=== PATIENT | male | born 1955 | race Two or more races ===

== ENCOUNTER 2020-02-07 10:36 | Inpatient (IN) | payer OTHER ==
[~2020-02-07] VITALS: Ht 172.7 cm; Wt 61.4 kg
[2020-02-07 11:51] LABS: BASO % 1 % (0-3); EOS # 0.2 x10^3/uL (0.0-0.7); EOS % 4 % (0-3); HEMOGLOBIN 10.5 g/dL (13.0-17.5); LYMPH # 1.2 x10^3/uL (1.0-4.8); LYMPH % 26 % (24-48); MEAN CORPUSCULAR HEMOGLOBIN 29 pg (25-35); MEAN CORPUSCULAR HGB CONC 32 g/dL (31-37); MEAN CORPUSCULAR VOLUME 91 fL (79-100); MONO # 0.4 x10^3/uL (0.0-1.1); MONO % 8 % (0-9); NEUT # 2.7 x10^3uL (1.8-7.7); NEUT % 61 % (31-73); PLATELET COUNT 257 x10^3/uL (140-400); RED BLOOD COUNT 3.64 x10^6/uL (4.30-5.70); RED CELL DISTRIBUTION WIDTH 15.3 % (11.5-14.5); WHITE BLOOD COUNT 4.5 x10^3/uL (4.0-11.0)
[2020-02-07 12:02] LABS: CALCIUM 9.2 mg/dL (8.5-10.1); CREATININE 0.6 mg/dL (0.7-1.3); GFR 136.1; POTASSIUM 3.7 mmol/L (3.5-5.1)
[2020-02-07 12:05] LABS: ACETAMIN < 2.0 mcg/mL (10-30); ETHANOL < 10 mg/dL (0-10); SALIC < 2.8 mg/dL (2.8-20.0)
[2020-02-07 12:07] LABS: ALBUMIN 3.2 g/dL (3.4-5.0); ALBUMIN/GLOBULIN RATIO 0.8 (1.0-1.7); MAGNESIUM 1.8 mg/dL (1.8-2.4); TOTAL BILIRUBIN 0.5 mg/dL (0.2-1.0); TOTAL PROTEIN 7.3 g/dL (6.4-8.2)
[2020-02-07 12:28] LABS: AMPHETAMINE/METHAMPHETAMINE NEG (NEG); BARBITURATES NEG (NEG); BENZODIAZEPINES NEG (NEG); CANNABINOIDS NEG (NEG); COCAINE NEG (NEG); METHADONE NEG (NEG); OPIATES NEG (NEG); PHENCYCLIDINE NEG (NEG)
--- NOTE | 2020-02-07 12:39 | PHYS DOC ---
General Adult EDM: Chief Complaint: MEDICAL CLEARANCE HPI: HPI: Patient is a 64 years old male with history of alcohol abuse causing wernike encephalopathy, has neurocognitive problem required admission to Geripsych unit at this hospital for treatment but need medical clearance from the ER SO HE WAS SENT HERE. He was tested negative for COVID-19 . Review of Systems: Review of Systems: NOT ABLE TO OBTAIN DUE TO MENTAL CONDITION. Heart Score: Risk Factors: Risk Factors: DM, Current or recent (<one month) smoker, HTN, HLP, family history of CAD, obesity. Risk Scores: Score 0 - 3: 2.5% MACE over next 6 weeks - Discharge Home Score 4 - 6: 20.3% MACE over next 6 weeks - Admit for Clinical Observation Score 7 - 10: 72.7% MACE over next 6 weeks - Early Invasive Strategies Physical Exam: PE: Constitutional: Well developed, well nourished, no acute distress, non-toxic appearance. [] HENT: HAD A SPECIAL HELMET ON HEAD. Eyes: PERRLA, EOMI, conjunctiva normal, no discharge. [] Neck: Normal range of motion, no tenderness, supple, no stridor. [] Cardiovascular:Heart rate regular rhythm, no murmur [] Lungs & Thorax: Bilateral breath sounds clear to auscultation [] Abdomen: Bowel sounds normal, soft, no tenderness, no masses, no pulsatile masses. [] Skin: Warm, dry, no erythema, no rash. [] Back: No tenderness, no CVA tenderness. [] Extremities: No tenderness, no cyanosis, no clubbing, ROM intact, no edema. [] Neurologic: ALERT BUT CONFUSED, MOVE ALL EXTREMITIES. Psychologic: FLAT AFFECT. Current Patient Data: Labs: Laboratory Tests Test 02/07/20 11:30 02/07/20 11:46 White Blood Count 4.5 x10^3/uL (4.0-11.0) Red Blood Count 3.64 x10^6/uL (4.30-5.70) L Hemoglobin 10.5 g/dL (13.0-17.5) L Hematocrit 33.0 % (39.0-53.0) L Mean Corpuscular Volume 91 fL (79-100) Mean Corpuscular Hemoglobin 29 pg (25-35) Mean Corpuscular Hemoglobin Concent 32 g/dL (31-37) Red Cell Distribution Width 15.3 % (11.5-14.5) H Platelet Count 257 x10^3/uL (140-400) Neutrophils (%) (Auto) 61 % (31-73) Lymphocytes (%) (Auto) 26 % (24-48) Monocytes (%) (Auto) 8 % (0-9) Eosinophils (%) (Auto) 4 % (0-3) H Basophils (%) (Auto) 1 % (0-3) Neutrophils # (Auto) 2.7 x10^3uL (1.8-7.7) Lymphocytes # (Auto) 1.2 x10^3/uL (1.0-4.8) Monocytes # (Auto) 0.4 x10^3/uL (0.0-1.1) Eosinophils # (Auto) 0.2 x10^3/uL (0.0-0.7) Basophils # (Auto) 0.0 x10^3/uL (0.0-0.2) Sodium Level 140 mmol/L (136-145) Potassium Level 3.7 mmol/L (3.5-5.1) Chloride Level 105 mmol/L (98-107) Carbon Dioxide Level 26 mmol/L (21-32) Anion Gap 9 (6-14) Blood Urea Nitrogen 18 mg/dL (8-26) Creatinine 0.6 mg/dL (0.7-1.3) L Estimated GFR (Cockcroft-Gault) 136.1 BUN/Creatinine Ratio 30 (6-20) H Glucose Level 100 mg/dL (70-99) H Calcium Level 9.2 mg/dL (8.5-10.1) Magnesium Level 1.8 mg/dL (1.8-2.4) Total Bilirubin 0.5 mg/dL (0.2-1.0) Aspartate Amino Transferase (AST) 18 U/L (15-37) Alanine Aminotransferase (ALT) 13 U/L (16-63) L Alkaline Phosphatase 94 U/L (46-116) Total Protein 7.3 g/dL (6.4-8.2) Albumin 3.2 g/dL (3.4-5.0) L Albumin/Globulin Ratio 0.8 (1.0-1.7) L Salicylates Level < 2.8 mg/dL (2.8-20.0) L Salicylate Last Dose Date Unknown Salicylate Last Dose Time Unknown Acetaminophen Level < 2.0 mcg/mL (10-30) L Acetaminophen Last Dose Date Unknown Acetaminophen Last Dose Time Unknown Ethyl Alcohol Level < 10 mg/dL (0-10) Urine Opiates Screen Neg (NEG) Urine Methadone Screen Neg (NEG) Urine Barbiturates Neg (NEG) Urine Phencyclidine Screen Neg (NEG) Urine Amphetamine/Methamphetamine Neg (NEG) Urine Benzodiazepines Screen Neg (NEG) Urine Cocaine Screen Neg (NEG) Urine Cannabinoids Screen Neg (NEG) Urine Ethyl Alcohol Neg (NEG) EKG: EKG: [] Radiology/Procedures: Radiology/Procedures: [] Course & Med Decision Making: Course & Med Decision Making Pertinent Labs and Imaging studies reviewed. (See chart for details) Patient is a 64 years old male who was sent to the ER for medical clearance prior to being admitted to the Geripsych unit here at [facility]. He was medical cleared. Shaniceon Disclaimer: Dragjony Disclaimer: This electronic medical record was generated, in whole or in part, using a voice recognition dictation system. Departure Departure: Impression: Primary Impression: Wernicke encephalopathy syndrome Additional Impressions: Alcohol abuse Major neurocognitive disorder Disposition: ADMITTED INPATIENT Admitting Physician: Other (dr. shields) Condition: STABLE Referrals: PCP,NO (PCP) THANH CRAIG DO February 07, 2020 12:39
[2020-02-07 12:41] LABS: BILIRUBIN,URINE NEG (NEG); CLARITY,URINE CLEAR; COLOR,URINE YELLOW; GLUCOSE,URINE NEG (NEG)
[2020-02-07 12:42] LABS: BACTERIA,URINE FEW /HPF (0-FEW); NITRITE,URINE NEG (NEG); RBC,URINE RARE /HPF (0-2); SQUAMOUS EPITHELIAL CELL,UR FEW /LPF; UROBILINOGEN,URINE 0.2 mg/dL (0.2 mg/dL)
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
[2020-02-07 13:37] VITALS: BP 99/62
[2020-02-07] MEDS ORDERED: ATOR40TA59 PO (14:12)
[2020-02-07] MEDS ORDERED: BISA10SU4 RC (14:12)
[2020-02-07] MEDS ORDERED: ASPI-630 PO (14:12)
[2020-02-07] MEDS ORDERED: LORA-254 PO ×3 (14:12→14:25)
[2020-02-07] MEDS ORDERED: LORazepam 1 MG TABLET PO PRN (14:15)
[2020-02-07] MEDS ORDERED: cholecalciferol PO (14:17)
[2020-02-07] MEDS ORDERED: LACT10SO26 PO (14:25)
[2020-02-07] MEDS ORDERED: DOCU-109 PO (14:25)
[2020-02-07] MEDS ORDERED: LACO200T PO (14:25)
[2020-02-07] MEDS ORDERED: MAGN400O7 PO (14:25)
[2020-02-07] MEDS ORDERED: MAGN400T5 PO (14:25)
[2020-02-07] MEDS ORDERED: MELA5TAB20 PO (14:25)
[2020-02-07] MEDS ORDERED: HALO10TA PO (14:25)
[2020-02-07] MEDS ORDERED: THIA100T57 PO (14:25)
[2020-02-07] MEDS ORDERED: SENN1TAB99 PO (14:25)
[2020-02-07] MEDS ORDERED: LEVE500T21 PO (14:25)
[2020-02-07] MEDS ORDERED: ACET325T9 PO (14:25)
[2020-02-07] MEDS ORDERED: PANT40TA5 PO (14:25)
[2020-02-07] MEDS ORDERED: CLOP75TA PO (14:25)
[2020-02-07] MEDS ORDERED: ACETAMINOPHEN 325 MG TABLET PO PRN (14:30)
[2020-02-07] MEDS ORDERED: METHYL SALICYLATE/MENTHOL TOPICAL OINTMENT 57GM TUBE. TP PRN (14:30)
[2020-02-07] MEDS ORDERED: MAGNESIUM HYDROXIDE 2,400 MG/30 ML ORAL.SUSP. PO PRN (14:30)
[2020-02-07] MEDS ORDERED: BISACODYL 10 MG SUPP.RECT RC PRN (14:30)
[2020-02-07] MEDS ORDERED: MAG HYDROX/AL HYDROX/SIMETH 30 ML ORAL.SUSP PO PRN (14:30)
[2020-02-07] MEDS ORDERED: NICOTINE 21MG PATCH. TD SCH (15:00)
[2020-02-07] MEDS: HALOPERIDOL 5 MG TABLET PO SCH ×2 (15:00→21:14)
--- NOTE | 2020-02-07 15:03 | NUR ---
Patient becoming more restless, grabbing at things that aren't there. Getting out of bed. Pt moved to floor as it was communicated that patient likes to crawl on floor. Mats placed on floor to provide protection. Pt has helmet on. Pt still restless and becoming agitated. Trying to hit staff. Redirection attempted. Pt given 1mg of Ativan. Pt now sitting up in chair. RN fed patient chocolate pudding. Pt is disorganized, unable to feed self at this time. WCTM.
--- NOTE | 2020-02-07 16:02 | NUR ---
Patient has been provided with Practical Counseling for tobacco cessation. It included a face to face interaction and the following was discussed: Recognizing danger situations, Developing coping skills,Basic cessation information. Will follow for discharge needs and discharge planning. Discussed with patient about smoking down in the ER before he was admitted
[2020-02-07] MEDS: NICOTINE 7MG PATCH. TD SCH (16:15)
--- NOTE | 2020-02-07 17:31 | EKG ---
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
[2020-02-07] MEDS: LORazepam 1 MG TABLET PO SCH (21:00)
[2020-02-07] MEDS: levETIRAcetam 500 MG TABLET PO SCH (21:13)
[2020-02-07] MEDS: LACTULOSE 20 GM/30 ML SOLUTION. PO SCH (21:13)
[2020-02-07] MEDS: DOCUSATE SODIUM 100 MG CAPSULE PO SCH (21:13)
[2020-02-07] MEDS: ATORVASTATIN CALCIUM 20 MG TABLET PO SCH (21:13)
[2020-02-07] MEDS: SENNOSIDES/DOCUSATE 8.6/50MG TABLET. PO SCH (21:13)
[2020-02-07] MEDS: LACOSAMIDE 50 MG TABLET PO SCH (21:14)
[2020-02-07] MEDS: MELATONIN 3 MG TABLET PO PRN (22:07)
--- NOTE | 2020-02-07 22:10 | NUR ---
Nursing Note Dr alyson sales, pt is combative, will not follow commands, agitated angry hitting pinching kicking at staff, takes 4 staff members to keep him from harming himself. Orders for trazodone 100mg repeat in 30 and hydroxizine prn.
[2020-02-07] MEDS: traZODone 100 MG TABLET. PO SCH (22:15)
--- NOTE | 2020-02-07 22:20 | PDOC ---
Exam Note: Jay Note: Please also refer to the separate dictated note~for this date of service dictated separately. Discussed the patient with Nursing staff reviewed the chart.~Reviewed interim history and current functioning. Reviewed vital signs,~Labs/ Radiology~and current medications noted below. Continue current treatment with the changes noted in the dictated addendum note Assessment: Vital Signs/I&O: Vital Signs Date Time Temp Pulse Resp B/P (MAP) Pulse Ox O2 Delivery O2 Flow Rate FiO2 02/07/20 13:37 97.7 79 18 99/62 (74) 98 02/07/20 12:55 Room Air Labs: Laboratory Tests Test 02/07/20 11:30 02/07/20 11:46 White Blood Count 4.5 x10^3/uL (4.0-11.0) Red Blood Count 3.64 x10^6/uL (4.30-5.70) L Hemoglobin 10.5 g/dL (13.0-17.5) L Hematocrit 33.0 % (39.0-53.0) L Mean Corpuscular Volume 91 fL (79-100) Mean Corpuscular Hemoglobin 29 pg (25-35) Mean Corpuscular Hemoglobin Concent 32 g/dL (31-37) Red Cell Distribution Width 15.3 % (11.5-14.5) H Platelet Count 257 x10^3/uL (140-400) Neutrophils (%) (Auto) 61 % (31-73) Lymphocytes (%) (Auto) 26 % (24-48) Monocytes (%) (Auto) 8 % (0-9) Eosinophils (%) (Auto) 4 % (0-3) H Basophils (%) (Auto) 1 % (0-3) Neutrophils # (Auto) 2.7 x10^3uL (1.8-7.7) Lymphocytes # (Auto) 1.2 x10^3/uL (1.0-4.8) Monocytes # (Auto) 0.4 x10^3/uL (0.0-1.1) Eosinophils # (Auto) 0.2 x10^3/uL (0.0-0.7) Basophils # (Auto) 0.0 x10^3/uL (0.0-0.2) Sodium Level 140 mmol/L (136-145) Potassium Level 3.7 mmol/L (3.5-5.1) Chloride Level 105 mmol/L (98-107) Carbon Dioxide Level 26 mmol/L (21-32) Anion Gap 9 (6-14) Blood Urea Nitrogen 18 mg/dL (8-26) Creatinine 0.6 mg/dL (0.7-1.3) L Estimated GFR (Cockcroft-Gault) 136.1 BUN/Creatinine Ratio 30 (6-20) H Glucose Level 100 mg/dL (70-99) H Calcium Level 9.2 mg/dL (8.5-10.1) Magnesium Level 1.8 mg/dL (1.8-2.4) Total Bilirubin 0.5 mg/dL (0.2-1.0) Aspartate Amino Transferase (AST) 18 U/L (15-37) Alanine Aminotransferase (ALT) 13 U/L (16-63) L Alkaline Phosphatase 94 U/L (46-116) Total Protein 7.3 g/dL (6.4-8.2) Albumin 3.2 g/dL (3.4-5.0) L Albumin/Globulin Ratio 0.8 (1.0-1.7) L Salicylates Level < 2.8 mg/dL (2.8-20.0) L Salicylate Last Dose Date Unknown Salicylate Last Dose Time Unknown Acetaminophen Level < 2.0 mcg/mL (10-30) L Acetaminophen Last Dose Date Unknown Acetaminophen Last Dose Time Unknown Ethyl Alcohol Level < 10 mg/dL (0-10) Urine Collection Type Unknown Urine Color Yellow Urine Clarity Clear Urine pH 5.5 Urine Specific [place] 1.025 Urine Protein Neg (NEG-TRACE) Urine Glucose (UA) Neg mg/dL (NEG) Urine Ketones (Stick) Neg mg/dL (NEG) Urine Blood Neg (NEG) Urine Nitrite Neg (NEG) Urine Bilirubin Neg (NEG) Urine Urobilinogen Dipstick 0.2 mg/dL (0.2 mg/dL) Urine Leukocyte Esterase Neg (NEG) Urine RBC Rare /HPF (0-2) Urine WBC 1-4 /HPF (0-4) Urine Squamous Epithelial Cells Few /LPF Urine Bacteria Few /HPF (0-FEW) Urine Mucus Mod /LPF Urine Opiates Screen Neg (NEG) Urine Methadone Screen Neg (NEG) Urine Barbiturates Neg (NEG) Urine Phencyclidine Screen Neg (NEG) Urine Amphetamine/Methamphetamine Neg (NEG) Urine Benzodiazepines Screen Neg (NEG) Urine Cocaine Screen Neg (NEG) Urine Cannabinoids Screen Neg (NEG) Urine Ethyl Alcohol Neg (NEG) Current Medications: Meds: Current Medications Medications (Trade) Dose Ordered Sig/Yeny Route PRN Reason Start Time Stop Time Status Last Admin Dose Admin Lorazepam (Ativan) 1 mg PRN DAILY PRN PO ANXIETY / AGITATION 02/07/20 14:15 02/07/20 16:23 DC 02/07/20 14:40 Lorazepam (Ativan) 1 mg TID PO 02/07/20 21:00 02/07/20 21:00 Docusate Sodium (Colace) 100 mg BID PO 02/07/20 21:00 02/07/20 21:13 Senna/Docusate Sodium (Senna Plus) 1 tab BID PO 02/07/20 21:00 02/07/20 21:13 Atorvastatin Calcium (Lipitor) 40 mg QHS PO 02/07/20 21:00 02/07/20 21:13 Haloperidol (Haldol) 10 mg TID PO 02/07/20 15:00 02/07/20 21:14 Lacosamide (Vimpat) 200 mg BID PO 02/07/20 21:00 02/07/20 21:14 Lactulose (Lactulose) 20 gm BID PO 02/07/20 21:00 02/07/20 21:13 Levetiracetam (Keppra) 1,000 mg BID PO 02/07/20 21:00 02/07/20 21:13 Melatonin (Melatonin) 6 mg PRN QHS PRN PO INSOMNIA 02/07/20 15:15 02/07/20 22:07 Nicotine (Nicoderm Cq 7mg) 1 patch DAILY TD 02/07/20 16:15 02/07/20 16:15 Olanzapine (ZyPREXA ZYDIS) 2.5 mg PRN Q2HRS PRN PO ANXIETY / AGITATION 02/07/20 16:30 02/07/20 22:07 I have reviewed the current psychotropics carefully including drug interactions. Risk benefit ratio favors no change other than as noted in my dictated progress note. ELMA HURD MD February 07, 2020 22:20
[2020-02-07] MEDS: hydrOXYzine HCL 25 MG TABLET PO PRN (22:35)
[2020-02-07] MEDS: traZODone 100 MG TABLET. PO PRN (22:45)
--- NOTE | 2020-02-07 23:00 | NUR ---
Assumed 1:1 care with pt at shift change. Initially, pt was cooperative. A/O to name, , hospital and stated the date was December 2019. Pt then became highly restless the rest of the evening. Pt repeatedly attempting to stand but was very unsteady on his feet. Pt hallucinating and delusional. At one point, pt pointed to the corner of the room stating there was a red and blue statue there. Pt also became upset when he said that the president was coming to see him and "he can't see me like this." Pt unable to be redirected once he became agitated. Staff x4 assisted in keeping the pt safe until medication was effective. During this time, pt asked for vodka and asked for staff to unscrew the bottle. Pt continues to have very restless sleep, attempting to get up occasionally. Will continue to monitor with 1:1 for safety.
[2020-02-07 23:39] VITALS: BP 152/80
--- NOTE | 2020-02-08 01:06 | NUR ---
Nursing Note Pt required trazodone, anxiety med hydroxizine, and help from staff X 5 to get settled in bed. Pt later has difficulty clearing airway, low suction performed to oral airway. Sats maintained 98-99% during this time.
--- NOTE | 2020-02-08 05:56 | NUR ---
Nursing Note Pt awakens intermittently through the night, is combative requiring several staff to assist him at once. Multiple meds given through the shift, but patient is still resistant and combative, also has at times been sedated and required suction on and off through the night. Oxygen was maintained at 98% but pt had wet vocal quality with weak sounding cough and secretions in the upper airway. Oral suction provided prn.
[2020-02-08 06:35] VITALS: BP 96/60
[2020-02-08 07:10] LABS: THYROXINE 5.5 ug/dL (4.5-12.0)
--- NOTE | 2020-02-08 08:13 | NUR ---
Assumed 1:1 care of patient at shift change. Patient's bed is on the floor with mats placed next to the mattress; head elevated; helmet in place. Patient has been in bed asleep, occasionally restless and calling out at one point. He has intermittent periods of loud wet breathing, otherwise NAD. Will continue to monitor.
--- NOTE | 2020-02-08 09:32 | NUR ---
Patient continues to sleep, occasionally talking in his sleep, occasionally being restless. Will hold morning medications at this time and continue to monitor.
--- NOTE | 2020-02-08 09:34 | NUR ---
Call placed to [facility] admitting representative at [phone]. Call reference number is amandap 02/08/20 9:13. Pending authorization number is [id number]. Faxed physician note, nursing notes, labs, and medication list to fax number [phone] for review. Requested call from utilization review nurse to discuss further. Awaiting call.
[2020-02-08] MEDS: LACTULOSE 20 GM/30 ML SOLUTION. PO SCH ×2 (10:55→19:57)
[2020-02-08] MEDS: PANTOPRAZOLE 40 MG TABLET. PO SCH (10:55)
[2020-02-08] MEDS: CLOPIDOGREL BISULFATE 75 MG TABLET PO SCH (10:56)
[2020-02-08] MEDS: CHOLECALCIFEROL (VITAMIN D3) 1,000 UNIT TABLET PO SCH (10:57)
[2020-02-08] MEDS: LORazepam 1 MG TABLET PO SCH ×3 (10:57→19:58)
[2020-02-08] MEDS: ASPIRIN CHEWABLE 81 MG TABLET. PO SCH (10:57)
[2020-02-08] MEDS: MAGNESIUM OXIDE 400 MG TABLET PO SCH (10:57)
[2020-02-08] MEDS: levETIRAcetam 500 MG TABLET PO SCH ×2 (10:57→19:58)
[2020-02-08] MEDS: HALOPERIDOL 5 MG TABLET PO SCH ×3 (10:58→19:57)
[2020-02-08] MEDS: LACOSAMIDE 50 MG TABLET PO SCH ×2 (10:58→19:57)
[2020-02-08] MEDS: SENNOSIDES/DOCUSATE 8.6/50MG TABLET. PO SCH ×2 (10:58→19:58)
[2020-02-08] MEDS: NICOTINE 7MG PATCH. TD SCH (10:58)
[2020-02-08] MEDS: THIAMINE 100 MG TABLET. PO SCH (10:59)
[2020-02-08] MEDS: DOCUSATE SODIUM 100 MG CAPSULE PO SCH ×2 (10:59→19:58)
--- NOTE | 2020-02-08 12:07 | NUR ---
Patient awakened and assisted in to wheel chair at about 1100. He has been very disorganized, hallucinating, and restless since waking up. Patient is oriented to self, and knows he is in hospital; he states it is 08 January 2020 and he goes back and forth between stating he is in [place] or [place]. He continuously picks at his gown or leans over and picks at his bed, at one point he stated he was eating his lunch even though there was no food in the room. When he first got up, he was trying to get out of his gown, stating he had to get out and kill himself with it. He has made no further SI comments. Patient required assistance with taking his medications r/t his disorganization and he ended up pouring out most of the lactulose. Will continue to monitor.
--- NOTE | 2020-02-08 13:49 | NUR ---
After lunch, patient was restless and continuously reaching for the floor. Patient then stated he was reaching for his bed. Asked patient if he wanted to lay down, he said Yes. Assisted patient into bed, he was restless for about 2 minutes then has settled into a very rested sleep; he has not changed position since about 13:10. Will hold 14:00 medications until patient wakens. Will continue 1:1 observation status and monitor for behaviours.
--- NOTE | 2020-02-08 14:56 | NUR ---
Patient continues to sleep, NAD, will continue 1:1 observation.
[2020-02-08 15:38] VITALS: BP 93/59
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
--- NOTE | 2020-02-08 17:05 | NUR ---
Patient has been increasingly restless and attempting to satnd on his own. He states he is trying to see where the little rabbit is going. Will continue to monitor.
[2020-02-08] MEDS: ATORVASTATIN CALCIUM 20 MG TABLET PO SCH (19:57)
[2020-02-08] MEDS: traZODone 100 MG TABLET. PO SCH (19:57)
[2020-02-08] MEDS: hydrOXYzine HCL 25 MG TABLET PO PRN (19:58)
[2020-02-08] MEDS: DIVALPROEX ER 500 MG TAB.ER.24H PO SCH (19:58)
[2020-02-08 20:23] LABS: THYROID STIM HORMONE (TSH) 0.565 uIU/mL (0.358-3.740)
--- NOTE | 2020-02-08 22:21 | NUR ---
Nursing Note Pt has been asleep since we arrived, awakens at times, will roll around on the mats. Removes helmet and pulls at clothing, not able to be redirected. Seems to be in constant motion.
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
--- NOTE | 2020-02-08 22:24 | PDOC ---
Exam Note: Jay Note: Please also refer to the separate dictated note~for this date of service dictated separately.~Patient seen individually. Discussed the patient with Nursing staff reviewed the chart.~Reviewed interim history and current functioning. Reviewed vital signs,~Labs/ Radiology~and current medications noted below. Continue current treatment with the changes noted in the dictated addendum note Assessment: Vital Signs/I&O: Vital Signs Date Time Temp Pulse Resp B/P (MAP) Pulse Ox O2 Delivery O2 Flow Rate FiO2 02/08/20 18:50 98.4 02/08/20 15:38 82 16 93/59 (70) 98 02/08/20 06:35 Room Air I & O 02/07/20 02/07/20 02/08/20 15:00 23:00 07:00 Intake Total 120 ml 100 ml Balance 120 ml 100 ml Current Medications: Meds: Current Medications Medications (Trade) Dose Ordered Sig/Yeny Route PRN Reason Start Time Stop Time Status Last Admin Dose Admin Aspirin (Aspirin Chewable) 81 mg DAILY PO 02/08/20 09:00 02/08/20 10:57 Clopidogrel Bisulfate (Plavix) 75 mg DAILY PO 02/08/20 09:00 02/08/20 10:56 Pantoprazole Sodium (Protonix) 40 mg DAILYAC PO 02/08/20 07:30 02/08/20 10:55 Magnesium Oxide (Magnesium Oxide) 400 mg DAILY PO 02/08/20 09:00 02/08/20 10:57 Thiamine HCl (Vitamin B-1) 100 mg DAILY PO 02/08/20 09:00 02/08/20 10:59 Vitamin D (Vitamin D3) 1,000 unit DAILY PO 02/08/20 09:00 02/08/20 10:57 Divalproex Sodium (Depakote Er) 500 mg QHS PO 02/08/20 21:00 02/08/20 19:58 I have reviewed the current psychotropics carefully including drug interactions. Risk benefit ratio favors no change other than as noted in my dictated progress note. Diagnosis: Problems: (1) Hallucinations (2) Impulse control disorder ELMA HURD MD February 08, 2020 22:24
--- NOTE | 2020-02-09 00:27 | CONS ---
DATE OF CONSULTATION: 02/08/2020 MEDICAL CONSULTATION NOTE ATTENDING PHYSICIAN: Dr. Dick Catalan. REASON FOR CONSULTATION: We are asked to see this patient for medical consultation. HISTORY OF PRESENT ILLNESS: The patient is age 64. He is a chronic alcoholic. He has a known history of Wernicke's encephalopathy from his chronic alcohol use and other drug use. He cannot give much history. He is obtunded, very agitated. He had to be placed in the seizure room with passive restraints for fear of hurting himself. He gives an address of [facility] from [facility]. He tells me he is from [place]. PAST MEDICAL HISTORY: Obtained from the chart. He has been sexually inappropriate with visual hallucinations, seeing snakes and Gila monsters, is delusional, we are all going to . He has been very agitated, combative. Upon arriving here, he was actively psychotic. He demanded vodka and cigarettes. PAST MEDICAL HISTORY: Includes Wernicke's encephalopathy, old stroke in 2019, seizure disorder, subdural hemorrhage from fall, generalized debilitation and COPD. CURRENT MEDICICATIONS: Reviewed. He was taking Tylenol, Mylanta, aspirin, Lipitor, bisacodyl, Plavix, docusate, Haldol, hydroxyzine, Vimpat, lactulose, Keppra, Ativan, milk of magnesia, melatonin, Nicoderm patch, Zyprexa, Protonix, senna, thiamine, trazodone, and vitamin D. Nursing reports last night he had to be given high dose of the Haldol and Ativan along with Zyprexa to calm him down. FAMILY HISTORY: Unobtainable. REVIEW OF SYSTEMS: Unobtainable. DRUG ALLERGIES: No known drug allergies recorded. PHYSICAL EXAMINATION: GENERAL: When I saw him, this is a confused, agitated gentleman. He is under a 24-hour watch, he is in the seizure room within a low bed. INITIAL VITAL SIGNS: Showed a blood pressure of 152/80, pulse was between 70 and 100, temperature 98.8 degrees Fahrenheit, and oxygen saturation 97% on room air. HEENT: He has a protective helmet on. The head is without trauma. Pupils are reactive. Oropharynx is clear. NECK: Supple. No stridor. LUNGS: Shallow respirations. CARDIOVASCULAR: Showed regular heart tones, distant. No gallops. Peripheral pulses are palpable and full. ABDOMEN: Soft, scaphoid. No guarding or rebound tenderness. Bowel sounds are hypoactive. EXTREMITIES: Showed no cyanosis. He is restrained. NEUROLOGIC FINDINGS: He is not aware of person, place or time. PERTINENT LABORATORY DATA: His hemoglobin is 10.5 g/dL with white count of 4500. Electrolytes within normal range. Creatinine is 0.6 mg/dL, nonfasting blood sugar 100, hemoglobin A1c is normal, transaminases and liver proteins, total protein and albumin are all within normal range. ASSESSMENT: 1. This 64-year-old gentleman has increased agitation and confusion with psychosis. 2. Chronic alcoholism. 3. Chronic obstructive pulmonary disease. 4. He has encephalopathy due to Wernicke-Korsakoff syndrome. He may have features of both including Wernicke's encephalopathy and Korsakoff psychosis. 5. Generalized debilitation. RECOMMENDATIONS: 1. This patient is not in good shape from his alcohol, tobacco and drug use. He is agitated. He has had a seizure disorder from previous stroke. He needs one-on-one monitoring at this time. 2. I reviewed his medications. 3. We should gladly follow along during the course of his hospitalization. I do not know about guardianship. Once again, I reviewed the medications and I have not any recommendations but to continue them for now. We should gladly follow along closely during his hospitalization. SYLVESTER SALDANA MD DR: PIERO/orestes JOB#: [id number] / [id number]
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
[2020-02-09 06:48] VITALS: BP 197/72
--- NOTE | 2020-02-09 08:15 | RAD ---
CT brain without contrast. HISTORY: Altered mental status CT scan of the brain was done without contrast. Sinuses are clear. Skull fracture is not identified. Mastoids are normally aerated. There is no intracranial hemorrhage or subdural hematoma. There is mild diffuse atrophy. An acute CVA is not identified. Lateral ventricles are normal in size. There is no mass or shift of the midline. IMPRESSION: 1. Mild atrophy. 2. No intracranial hemorrhage or acute finding noted. PQRS Compliance Statement: One or more of the following individualized dose reduction techniques were utilized for this examination: 1. Automated exposure control 2. Adjustment of the mA and/or kV according to patient size 3. Use of iterative reconstruction technique Electronically signed by: Robin Shoemaker MD (02/09/2020 8:12 AM) [id number]
[2020-02-09] MEDS: LACTULOSE 20 GM/30 ML SOLUTION. PO SCH ×2 (08:19→19:57)
[2020-02-09] MEDS: SENNOSIDES/DOCUSATE 8.6/50MG TABLET. PO SCH ×2 (08:19→19:56)
[2020-02-09] MEDS: levETIRAcetam 500 MG TABLET PO SCH ×2 (08:19→19:56)
[2020-02-09] MEDS: CHOLECALCIFEROL (VITAMIN D3) 1,000 UNIT TABLET PO SCH (08:20)
[2020-02-09] MEDS: LACOSAMIDE 50 MG TABLET PO SCH ×2 (08:20→19:56)
[2020-02-09] MEDS: NICOTINE 7MG PATCH. TD SCH (08:20)
[2020-02-09] MEDS: CLOPIDOGREL BISULFATE 75 MG TABLET PO SCH (08:21)
[2020-02-09] MEDS: DOCUSATE SODIUM 100 MG CAPSULE PO SCH ×2 (08:21→19:56)
[2020-02-09] MEDS: MAGNESIUM OXIDE 400 MG TABLET PO SCH (08:21)
[2020-02-09] MEDS: LORazepam 1 MG TABLET PO SCH ×3 (08:21→19:56)
[2020-02-09] MEDS: PANTOPRAZOLE 40 MG TABLET. PO SCH (08:21)
[2020-02-09] MEDS: HALOPERIDOL 5 MG TABLET PO SCH ×3 (08:21→19:55)
[2020-02-09] MEDS: ASPIRIN CHEWABLE 81 MG TABLET. PO SCH (08:21)
[2020-02-09] MEDS: THIAMINE 100 MG TABLET. PO SCH (08:22)
--- NOTE | 2020-02-09 08:42 | NUR ---
Patient was in brief with no gown on, lying in position on mat on top of a pile of blankets when this nurse came on duty. Patient stated he was cold and nurse provided additional blankets. Nurse talking to and interacting with patient and he told nurse he likes music and likes to draw and paint. His favorite artists are Tool and Red [employer] [place] [employer]. Nurse played music that he likes, patient seemed to enjoy listening to some Chilli Pepper music. He stated he grew up in [place] and has 3 children and his parents came to [place] from [place]. He is alert and oriented x4 and denies pain when asked. He did ask for a cigarette. Nurse told him we cannot smoke here and provided him with prescribed nicotine patch. Patient was dressed and taken to radiology for head CT, he was cooperative with CT but had to be held upright in the wheelchair on the way to radiology as he was leaning forward and unable/unwilling to maintain balance in chair. Patient remains unable to sit straight in chair and has a leaning forward posture. Staff attempted to feed him breakfast, he ate one bite sausage and one bite oatmeal. He is on a mechanical soft diet with nectar thick liquids. Patient compliant with medications crushed in chocolate pudding although it took 3 bites and much encouragement to get him to take them. Patient is now laying down on mat and asleep. He is calm and appears to have no s/s pain at this time. Addendum: 02/09/20 at 1337 by RACHELLE CHÁVEZ RN Patients facility called to check on him. This nurse spoke to criminal justice social worker at [facility]. SW stated that patient had wanted to start drawing and painting again when first admitted but that he was not successful. She also stated that patient had usually been calm and compliant, the behaviors and hallucinations that brought him to [facility] were new for him.
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
--- NOTE | 2020-02-09 13:30 | NUR ---
Patient has been slept soundly most of the morning and is still sleeping. Apprentice Jockey here to draw blood, patient cooperative and calm. Patient declined lunch, tray was saved for later.
[2020-02-09 13:35] LABS: ALBUMIN/GLOBULIN RATIO 0.8 (1.0-1.7); CALCIUM 8.8 mg/dL (8.5-10.1); CREATININE 0.6 mg/dL (0.7-1.3); GFR 136.1; POTASSIUM 3.8 mmol/L (3.5-5.1); TOTAL BILIRUBIN 0.4 mg/dL (0.2-1.0); TOTAL PROTEIN 6.8 g/dL (6.4-8.2)
[2020-02-09 13:42] LABS: BASO % 1 % (0-3); EOS # 0.2 x10^3/uL (0.0-0.7); EOS % 5 % (0-3); HEMATOCRIT 33.8 % (39.0-53.0); HEMOGLOBIN 10.9 g/dL (13.0-17.5); LYMPH # 1.2 x10^3/uL (1.0-4.8); LYMPH % 33 % (24-48); MEAN CORPUSCULAR HEMOGLOBIN 29 pg (25-35); MEAN CORPUSCULAR HGB CONC 32 g/dL (31-37); MEAN CORPUSCULAR VOLUME 88 fL (79-100); MONO # 0.4 x10^3/uL (0.0-1.1); MONO % 11 % (0-9); NEUT # 1.9 x10^3uL (1.8-7.7); NEUT % 51 % (31-73); PLATELET COUNT 218 x10^3/uL (140-400); RED BLOOD COUNT 3.82 x10^6/uL (4.30-5.70); RED CELL DISTRIBUTION WIDTH 14.6 % (11.5-14.5); WHITE BLOOD COUNT 3.8 x10^3/uL (4.0-11.0)
--- NOTE | 2020-02-09 15:30 | NUR ---
Held patients ativan r/t he has been sleeping most of the day and is drowsy. Gave 1400 haldol as scheduled. .
[2020-02-09 16:04] VITALS: BP 92/50
--- NOTE | 2020-02-09 16:15 | EKG ---
[address] [address] Test Date: 2020-02-07 Test Time: 11:05:51 Pat Name: JUANITA BELTRE Department: Room: [address] [place] [address] Gender: M Senior Lead Java Developer: : [id number] Requested By: ELMA HURD Order Number: [id number] Reading MD: Deo Choi Measurements Intervals [place] Rate: 73 P: 49 AR: 148 QRS: 65 QRSD: 70 T: 62 QT: 370 QTc: 411 Interpretive Statements SINUS RHYTHM Electronically Signed On 02-10-2020 7:57:59 CDT by Deo Choi
--- NOTE | 2020-02-09 18:00 | NUR ---
Patient ate most of his dinner. He ate some with assistance and some by himself with his spoon. He is not very good at using silverware and uses the knife as a spoon. He has been awake and calm since dinner. He is sitting on the edge of the bed and calm. Nurse did have to ask him to not stand up and he complied. When Dr Catalan rounded patient told that he had monkey brains for dinner.
[2020-02-09] MEDS: DIVALPROEX ER 500 MG TAB.ER.24H PO SCH (19:55)
[2020-02-09] MEDS: traZODone 100 MG TABLET. PO SCH (19:56)
[2020-02-09] MEDS: ATORVASTATIN CALCIUM 20 MG TABLET PO SCH (19:57)
--- NOTE | 2020-02-09 21:18 | NUR ---
Assumed care of pt in his room as a 1:1 related to seizures and high fall risk. Pt continues to try to get up but stops when asked to. He was compliant with meds in pudding and compliant with assessment. He continues to attempt to pick at things on the floor that are not there. He is mumbling when he answers a question and difficult to understand.
--- NOTE | 2020-02-09 22:22 | PDOC ---
Exam Note: Jay Note: Please also refer to the separate dictated note~for this date of service dictated separately.~Patient seen individually. Discussed the patient with Nursing staff reviewed the chart.~Reviewed interim history and current functioning. Reviewed vital signs,~Labs/ Radiology~and current medications noted below. Continue current treatment with the changes noted in the dictated addendum note Assessment: Vital Signs/I&O: Vital Signs Date Time Temp Pulse Resp B/P (MAP) Pulse Ox O2 Delivery O2 Flow Rate FiO2 02/09/20 20:45 97.9 98 02/09/20 16:04 68 18 92/50 (64) 02/08/20 06:35 Room Air I & O 02/08/20 02/08/20 02/09/20 15:00 23:00 07:00 Intake Total 170 ml 780 ml Balance 170 ml 780 ml Labs: Laboratory Tests Test 02/09/20 13:14 White Blood Count 3.8 x10^3/uL (4.0-11.0) L Red Blood Count 3.82 x10^6/uL (4.30-5.70) L Hemoglobin 10.9 g/dL (13.0-17.5) L Hematocrit 33.8 % (39.0-53.0) L Mean Corpuscular Volume 88 fL (79-100) Mean Corpuscular Hemoglobin 29 pg (25-35) Mean Corpuscular Hemoglobin Concent 32 g/dL (31-37) Red Cell Distribution Width 14.6 % (11.5-14.5) H Platelet Count 218 x10^3/uL (140-400) Neutrophils (%) (Auto) 51 % (31-73) Lymphocytes (%) (Auto) 33 % (24-48) Monocytes (%) (Auto) 11 % (0-9) H Eosinophils (%) (Auto) 5 % (0-3) H Basophils (%) (Auto) 1 % (0-3) Neutrophils # (Auto) 1.9 x10^3uL (1.8-7.7) Lymphocytes # (Auto) 1.2 x10^3/uL (1.0-4.8) Monocytes # (Auto) 0.4 x10^3/uL (0.0-1.1) Eosinophils # (Auto) 0.2 x10^3/uL (0.0-0.7) Basophils # (Auto) 0.0 x10^3/uL (0.0-0.2) Sodium Level 139 mmol/L (136-145) Potassium Level 3.8 mmol/L (3.5-5.1) Chloride Level 104 mmol/L (98-107) Carbon Dioxide Level 27 mmol/L (21-32) Anion Gap 8 (6-14) Blood Urea Nitrogen 16 mg/dL (8-26) Creatinine 0.6 mg/dL (0.7-1.3) L Estimated GFR (Cockcroft-Gault) 136.1 BUN/Creatinine Ratio 27 (6-20) H Glucose Level 99 mg/dL (70-99) Calcium Level 8.8 mg/dL (8.5-10.1) Total Bilirubin 0.4 mg/dL (0.2-1.0) Aspartate Amino Transferase (AST) 20 U/L (15-37) Alanine Aminotransferase (ALT) 15 U/L (16-63) L Alkaline Phosphatase 88 U/L (46-116) Total Protein 6.8 g/dL (6.4-8.2) Albumin 3.0 g/dL (3.4-5.0) L Albumin/Globulin Ratio 0.8 (1.0-1.7) L Current Medications: I have reviewed the current psychotropics carefully including drug interactions. Risk benefit ratio favors no change other than as noted in my dictated progress note. Diagnosis: Problems: (1) Impulse control disorder (2) Major neurocognitive disorder due to Alzheimer's disease, with behavioral disturbance (3) Wernicke-Korsakoff syndrome (alcoholic) (4) Dementia, vascular, with delusions (5) Dementia, vascular, with depression (6) Psychotic disorder (7) Anxiety disorder ELMA HURD MD February 09, 2020 22:22
--- NOTE | 2020-02-09 22:54 | PN ---
DATE: 02/09/2020 PSYCHIATRIC PROGRESS NOTE This note covers elements not covered in my initial note, 02/09/2020. SUBJECTIVE: I met with the patient evening of 02/09/2020 in his room. He remains on one-on-one status with ERLINDA Barajas. He slept 6-3/4 hours previous night, somewhat sleepy during the day today. CT head shows atrophy, otherwise no acute changes. He became anxious in the afternoon, received Ativan. Rest of the day, a little better, oriented to his date of . REVIEW OF SYSTEMS: Ambulation impaired, in wheelchair. No CV, , pulmonary, eye system symptoms on review. MENTAL STATUS EXAM: Oriented to himself. Insight, judgment, recent and remote memory, attention, concentration, fund of knowledge poor, consistent with his diagnosis. IMPRESSION: Major neurocognitive disorder, Wernicke-Korsakoff with delusion, depression, behavioral disturbance, major neurocognitive disorder secondary to alcohol with delusion, depression, behavioral disturbance. Rest unchanged from previous notes. PLAN: Continue psychotropics from initial note including Ativan 1 mg t.i.d., Haldol 10 mg t.i.d., lacosamide and Keppra for his seizures, Depakote ER 500 mg at bedtime as a mood stabilizer. Check labs level, adjust as indicated. Maintain melatonin and thiamine along with Zyprexa and trazodone p.r.n. ELMA HURD MD DR: CHARISSA/orestes JOB#: [id number] / [id number]
[2020-02-10 06:20] VITALS: BP 91/50
--- NOTE | 2020-02-10 08:41 | NUR ---
Nursing note: Pt asleep in his room at shift change. Pt continues to be asleep at this time. Breakfast and morning meds will be held until pt wakes up. He woke up briefly and was picking at the floor and mumbling. Most of what he was saying was unable to be understood, but did mention finding body parts and being upset when people stole them from him. Pt talked himself back to sleep. He continues to be a 1:1 for safety. Will continue to monitor.
[2020-02-10] MEDS: CHOLECALCIFEROL (VITAMIN D3) 1,000 UNIT TABLET PO SCH (09:00)
[2020-02-10] MEDS: THIAMINE 100 MG TABLET. PO SCH (09:00)
[2020-02-10] MEDS: LACTULOSE 20 GM/30 ML SOLUTION. PO SCH ×2 (10:26→20:36)
[2020-02-10] MEDS: DOCUSATE SODIUM 100 MG CAPSULE PO SCH ×2 (10:27→20:37)
[2020-02-10] MEDS: levETIRAcetam 500 MG TABLET PO SCH ×2 (10:27→20:37)
[2020-02-10] MEDS: LORazepam 1 MG TABLET PO SCH ×3 (10:27→20:35)
[2020-02-10] MEDS: ASPIRIN CHEWABLE 81 MG TABLET. PO SCH (10:27)
[2020-02-10] MEDS: SENNOSIDES/DOCUSATE 8.6/50MG TABLET. PO SCH ×2 (10:27→20:36)
[2020-02-10] MEDS: CLOPIDOGREL BISULFATE 75 MG TABLET PO SCH (10:28)
[2020-02-10] MEDS: MAGNESIUM OXIDE 400 MG TABLET PO SCH (10:28)
[2020-02-10] MEDS: HALOPERIDOL 5 MG TABLET PO SCH ×3 (10:28→20:36)
[2020-02-10] MEDS: LACOSAMIDE 50 MG TABLET PO SCH ×2 (10:28→20:36)
[2020-02-10] MEDS: PANTOPRAZOLE 40 MG TABLET. PO SCH (10:28)
[2020-02-10] MEDS: NICOTINE 7MG PATCH. TD SCH (10:29)
--- NOTE | 2020-02-10 10:52 | NUR ---
Received fax from [employer] [facility] authorizing four days, 02/06 thru 02/11/20, concurrent review due on 02/11/20. Authorization number is [id number].
--- NOTE | 2020-02-10 12:30 | NUR ---
Tuan Coronado participated in team meeting via phone on this date. Tuan Puente remains a 1:1 as he has poor safety awareness, is hallucinating, delusional, high risk for falling and very confused. Spoke with Violet Ceja Henry compliance reviewer, and clinicals will be faxed in on 02/11/20 for review. Violet's phone number is [phone].
--- NOTE | 2020-02-10 13:14 | NUR ---
Telephone call placed to PAMELA Linn at [facility] to provide progress report and update. Faxed current notes, medication and labs for review.
--- NOTE | 2020-02-10 14:00 | NUR ---
Nursing note: Pt woke up for lunch. He was assisted out of bed and into his wheelchair. Pt became very resistive with assistance and demanded to be left alone and to get out of his way. Pt was leaning over to one side and refused to sit down in his wheelchair. He was eventually compliant in sitting down once his food tray was placed in front of him. After lunch, pt became increasingly restless and continued to attempt to stand up on his own. Pt was given his scheduled 1400 meds and assisted back into bed per his request. Will continue to monitor.
[2020-02-10 15:55] VITALS: BP 90/58
--- NOTE | 2020-02-10 16:30 | NUR ---
ACTIVITY THERAPY ASSESSMENT Completed based on observation, attempted interview and notes. Pt. was sleeping during attempted interview. Pt. sleeps often, is withdrawn to his room, laying on a mattress on the floor and wears a helmet for safety. Pt. is difficult to engage in conversation and struggled to communicate clearly. He has mumbles speech, poor eye contact, and reports of hallucinations. He has been on a 1:1 for safety as he attempts to walk unassisted. He has a history of drug and alcohol abuse. Notes indicate Pt. enjoys drawing, writing poetry, / Puertorican music. Initial goal aimed to increase sensory stimulation: Pt. will participate in at least one individual Activity Therapy session before discharge.
[2020-02-10] MEDS: traZODone 100 MG TABLET. PO SCH ×2 (20:35→23:29)
[2020-02-10] MEDS: ATORVASTATIN CALCIUM 20 MG TABLET PO SCH (20:36)
[2020-02-10] MEDS: DIVALPROEX ER 500 MG TAB.ER.24H PO SCH (20:36)
--- NOTE | 2020-02-10 21:15 | NUR ---
Nursing note: Assumed care of pt in his room. He is on a mattress on the floor for his safety as he continues to attempt to get up or crawl around on the floor, frequently takes off protective head gear, very restless at times. He is compliant with meds crushed in pudding and drinks adequate amount of fluids. Pt is alert to self, still sees things and people not present. No s/s or c/o pain.
--- NOTE | 2020-02-10 22:18 | PDOC ---
Exam Note: Jay Note: Please also refer to the separate dictated note~for this date of service dictated separately.~Patient seen individually. Discussed the patient with Nursing staff reviewed the chart.~Reviewed interim history and current functioning. Reviewed vital signs,~Labs/ Radiology~and current medications noted below. Continue current treatment with the changes noted in the dictated addendum note Assessment: Vital Signs/I&O: Vital Signs Date Time Temp Pulse Resp B/P (MAP) Pulse Ox O2 Delivery O2 Flow Rate FiO2 02/10/20 20:30 98.4 97 02/10/20 15:55 79 18 90/58 (69) 02/08/20 06:35 Room Air I & O 02/09/20 02/09/20 02/10/20 15:00 23:00 07:00 Intake Total 360 ml 480 ml Balance 360 ml 480 ml Current Medications: I have reviewed the current psychotropics carefully including drug interactions. Risk benefit ratio favors no change other than as noted in my dictated progress note. 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
--- NOTE | 2020-02-10 22:23 | PN ---
DATE: 02/10/2020 PSYCHIATRIC PROGRESS NOTE SUBJECTIVE: The patient was seen on telehealth rounds evening of 02/10/2020. Per ERLINDA Alexandra, the patient slept 6 hours previous night. He is trying to pull his helmet off, resistive to cares. We will check a valproic acid level on 02/11/2020. He remains on one-on-one status. In the morning, he was staffed at a treatment team meeting with the entire team including ERLINDA Vasquez and social service staff Yasmeen and activity therapy staff Estephanie. 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 Until about 18 months ago, nevertheless, he was functioning, then lost his job. He does have a history of Wernicke-Korsakoff syndrome and dementia multifactorial, chronic subacute subdural hemorrhage and vascular dementia. There is no history of motor vehicle accident as was apparently present in his records and this was confirmed by the son. He continues to be in a headgear. He remains restless, disorganized, paranoid with intermittent hallucinations, compliant with medications. Slept 6 hours. Appetite 25%. REVIEW OF SYSTEMS: No CV, , pulmonary, eye, ENT system symptoms on review. Reliability poor. MENTAL STATUS EXAM: Oriented to himself. Insight, judgment, recent and remote memory, attention, concentration, fund of knowledge poor, consistent with his diagnosis. IMPRESSION: Major neurocognitive disorder, multifactorial, possibly Wernicke-Korsakoff vascular with delusion, depression, behavioral disturbance. Rest unchanged. PLAN: No change from initial note. ELMA HURD MD DR: CHARISSA/orestes JOB#: [id number] / [id number]
[2020-02-11] MEDS: hydrOXYzine HCL 25 MG TABLET PO PRN ×2 (00:28→12:10)
[2020-02-11 05:05] VITALS: BP 90/53
--- NOTE | 2020-02-11 08:27 | NUR ---
Concurrent review faxed to Violet at [facility] for review, awaiting outcome. Attempted to visit with Tuan on 02/10/20. He was restless sitting on his mattress which is on the floor for safety. 1:1 RESOURCE ROOM SPECIAL EDUCATION TEACHER was next to him. Tuan was able to return simple greetings. He lacked the ability to focus or converse and spoke of seeing fire in the room numerous times. He continued to be restless despite reassurance and support. Addendum: 02/11/20 at 1153 by CHERYL SANTIAGO Received fax from [facility] indicating Tuan has been approved thru 02/15/20, next review date will be 02/15/20.
[2020-02-11] MEDS: THIAMINE 100 MG TABLET. PO SCH (09:00)
[2020-02-11] MEDS: CHOLECALCIFEROL (VITAMIN D3) 1,000 UNIT TABLET PO SCH (09:00)
[2020-02-11] MEDS: LORazepam 1 MG TABLET PO SCH ×3 (09:18→19:57)
[2020-02-11] MEDS: ASPIRIN CHEWABLE 81 MG TABLET. PO SCH (09:18)
[2020-02-11] MEDS: SENNOSIDES/DOCUSATE 8.6/50MG TABLET. PO SCH ×2 (09:18→19:58)
[2020-02-11] MEDS: HALOPERIDOL 5 MG TABLET PO SCH ×3 (09:19→19:58)
[2020-02-11] MEDS: LACOSAMIDE 50 MG TABLET PO SCH ×2 (09:19→19:56)
[2020-02-11] MEDS: NICOTINE 7MG PATCH. TD SCH (09:20)
[2020-02-11] MEDS: levETIRAcetam 500 MG TABLET PO SCH ×2 (09:20→19:58)
[2020-02-11] MEDS: LACTULOSE 20 GM/30 ML SOLUTION. PO SCH ×2 (09:20→19:55)
[2020-02-11] MEDS: CLOPIDOGREL BISULFATE 75 MG TABLET PO SCH (09:20)
[2020-02-11] MEDS: PANTOPRAZOLE 40 MG TABLET. PO SCH (09:20)
[2020-02-11] MEDS: DOCUSATE SODIUM 100 MG CAPSULE PO SCH ×2 (09:20→19:56)
[2020-02-11] MEDS: MAGNESIUM OXIDE 400 MG TABLET PO SCH (09:20)
--- NOTE | 2020-02-11 14:31 | NUR ---
Nursing note: Pt in his room for morning meds and assessment. He was compliant with his meds crushed in pudding and cooperative with his assessment. Pt sat up in his chair for a little while to eat his meals. Around lunch, he became increasingly agitated. PRN was given at that time. Pt is currently sleeping on his mattress which remains on the floor. Pt also continues to be a 1:1 for safety. Will continue to monitor.
[2020-02-11 16:18] LABS: BASO % 1 % (0-3); EOS # 0.2 x10^3/uL (0.0-0.7); EOS % 6 % (0-3); HEMATOCRIT 33.9 % (39.0-53.0); LYMPH # 1.2 x10^3/uL (1.0-4.8); LYMPH % 32 % (24-48); MEAN CORPUSCULAR HEMOGLOBIN 29 pg (25-35); MEAN CORPUSCULAR HGB CONC 32 g/dL (31-37); MEAN CORPUSCULAR VOLUME 88 fL (79-100); MONO # 0.4 x10^3/uL (0.0-1.1); MONO % 10 % (0-9); NEUT # 1.9 x10^3uL (1.8-7.7); NEUT % 51 % (31-73); PLATELET COUNT 206 x10^3/uL (140-400); RED BLOOD COUNT 3.84 x10^6/uL (4.30-5.70); RED CELL DISTRIBUTION WIDTH 14.9 % (11.5-14.5); WHITE BLOOD COUNT 3.6 x10^3/uL (4.0-11.0)
[2020-02-11 16:36] LABS: ALBUMIN 3.2 g/dL (3.4-5.0); ALBUMIN/GLOBULIN RATIO 0.8 (1.0-1.7); ALK PHOS 93 U/L (46-116); ALT (SGPT) 17 U/L (16-63); ANION GAP 9 (6-14); AST (SGOT) 41 U/L (15-37); BLOOD UREA NITROGEN 16 mg/dL (8-26); BUN/CREATININE RATIO 27 (6-20); CALCIUM 9.1 mg/dL (8.5-10.1); CARBON DIOXIDE 27 mmol/L (21-32); CHLORIDE 102 mmol/L (98-107); CREATININE 0.6 mg/dL (0.7-1.3); GFR 136.1; GLUCOSE 111 mg/dL (70-99); POTASSIUM 3.8 mmol/L (3.5-5.1); SODIUM 138 mmol/L (136-145); TOTAL BILIRUBIN 0.3 mg/dL (0.2-1.0); TOTAL PROTEIN 7.2 g/dL (6.4-8.2)
[2020-02-11 16:38] LABS: VAL ACID 50 mcg/mL (50-100)
[2020-02-11 16:48] VITALS: BP 102/56
[2020-02-11] MEDS: ATORVASTATIN CALCIUM 20 MG TABLET PO SCH (19:56)
[2020-02-11] MEDS: traZODone 100 MG TABLET. PO PRN (19:57)
[2020-02-11] MEDS: DIVALPROEX ER 500 MG TAB.ER.24H PO SCH (19:57)
--- NOTE | 2020-02-11 22:00 | NUR ---
Patient is in his room on assumption of care. He is on a mattress on the floor for his safety. Compliant with assessments and medications taken crushed in pudding. Continues to pick at things that aren't there, does not appear distressed by it. No agitation. No evidence of pain or discomfort. Will continue to monitor.
--- NOTE | 2020-02-11 22:08 | PDOC ---
Exam Note: Jay Note: Please also refer to the separate dictated note~for this date of service dictated separately.~Patient seen individually. Discussed the patient with Nursing staff reviewed the chart.~Reviewed interim history and current functioning. Reviewed vital signs,~Labs/ Radiology~and current medications noted below. Continue current treatment with the changes noted in the dictated addendum note Assessment: Vital Signs/I&O: Vital Signs Date Time Temp Pulse Resp B/P (MAP) Pulse Ox O2 Delivery O2 Flow Rate FiO2 02/11/20 21:45 97.5 97 02/11/20 16:48 60 16 102/56 (71) 02/11/20 05:05 Room Air I & O 02/10/20 02/10/20 02/11/20 15:00 23:00 07:00 Intake Total 480 ml 270 ml 240 ml Balance 480 ml 270 ml 240 ml Labs: Laboratory Tests Test 02/11/20 16:00 White Blood Count 3.6 x10^3/uL (4.0-11.0) L Red Blood Count 3.84 x10^6/uL (4.30-5.70) L Hemoglobin 11.0 g/dL (13.0-17.5) L Hematocrit 33.9 % (39.0-53.0) L Mean Corpuscular Volume 88 fL (79-100) Mean Corpuscular Hemoglobin 29 pg (25-35) Mean Corpuscular Hemoglobin Concent 32 g/dL (31-37) Red Cell Distribution Width 14.9 % (11.5-14.5) H Platelet Count 206 x10^3/uL (140-400) Neutrophils (%) (Auto) 51 % (31-73) Lymphocytes (%) (Auto) 32 % (24-48) Monocytes (%) (Auto) 10 % (0-9) H Eosinophils (%) (Auto) 6 % (0-3) H Basophils (%) (Auto) 1 % (0-3) Neutrophils # (Auto) 1.9 x10^3uL (1.8-7.7) Lymphocytes # (Auto) 1.2 x10^3/uL (1.0-4.8) Monocytes # (Auto) 0.4 x10^3/uL (0.0-1.1) Eosinophils # (Auto) 0.2 x10^3/uL (0.0-0.7) Basophils # (Auto) 0.0 x10^3/uL (0.0-0.2) Sodium Level 138 mmol/L (136-145) Potassium Level 3.8 mmol/L (3.5-5.1) Chloride Level 102 mmol/L (98-107) Carbon Dioxide Level 27 mmol/L (21-32) Anion Gap 9 (6-14) Blood Urea Nitrogen 16 mg/dL (8-26) Creatinine 0.6 mg/dL (0.7-1.3) L Estimated GFR (Cockcroft-Gault) 136.1 BUN/Creatinine Ratio 27 (6-20) H Glucose Level 111 mg/dL (70-99) H Calcium Level 9.1 mg/dL (8.5-10.1) Total Bilirubin 0.3 mg/dL (0.2-1.0) Aspartate Amino Transferase (AST) 41 U/L (15-37) H Alanine Aminotransferase (ALT) 17 U/L (16-63) Alkaline Phosphatase 93 U/L (46-116) Ammonia 42 mcmol/L (11-34) H Total Protein 7.2 g/dL (6.4-8.2) Albumin 3.2 g/dL (3.4-5.0) L Albumin/Globulin Ratio 0.8 (1.0-1.7) L Valproic Acid Level 50 mcg/mL (50-100) Valproic Acid Last Dose Date 02/10/2020 Valproic Acid Last Dose Time 2100 Current Medications: I have reviewed the current psychotropics carefully including drug interactions. Risk benefit ratio favors no change other than as noted in my dictated progress note. 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
[2020-02-12 06:16] VITALS: BP 105/66
[2020-02-12] MEDS: THIAMINE 100 MG TABLET. PO SCH (08:33)
[2020-02-12] MEDS: LACOSAMIDE 50 MG TABLET PO SCH ×2 (08:33→20:00)
[2020-02-12] MEDS: CLOPIDOGREL BISULFATE 75 MG TABLET PO SCH (08:34)
[2020-02-12] MEDS: LORazepam 1 MG TABLET PO SCH ×3 (08:34→20:03)
[2020-02-12] MEDS: PANTOPRAZOLE 40 MG TABLET. PO SCH (08:34)
[2020-02-12] MEDS: levETIRAcetam 500 MG TABLET PO SCH ×2 (08:34→20:02)
[2020-02-12] MEDS: MAGNESIUM OXIDE 400 MG TABLET PO SCH (08:35)
[2020-02-12] MEDS: SENNOSIDES/DOCUSATE 8.6/50MG TABLET. PO SCH ×2 (08:35→20:03)
[2020-02-12] MEDS: HALOPERIDOL 5 MG TABLET PO SCH ×3 (08:35→20:03)
[2020-02-12] MEDS: ASPIRIN CHEWABLE 81 MG TABLET. PO SCH (08:35)
[2020-02-12] MEDS: LACTULOSE 20 GM/30 ML SOLUTION. PO SCH ×2 (08:35→20:00)
[2020-02-12] MEDS: CHOLECALCIFEROL (VITAMIN D3) 1,000 UNIT TABLET PO SCH (08:35)
[2020-02-12] MEDS: NICOTINE 7MG PATCH. TD SCH (08:35)
[2020-02-12] MEDS: DOCUSATE SODIUM 100 MG CAPSULE PO SCH ×2 (08:35→20:02)
--- NOTE | 2020-02-12 09:47 | NUR ---
Patient laying on bed. Patient confused and attempting to excelsior picker things that are not there. Patient unwilling to communicate this morning. will continue to monitor patients needs.
[2020-02-12] MEDS: hydrOXYzine HCL 25 MG TABLET PO PRN (11:22)
[2020-02-12 16:21] VITALS: BP 118/65
[2020-02-12] MEDS: DIVALPROEX 125 MG CAP.SPRINK PO SCH (20:02)
[2020-02-12] MEDS: traZODone 100 MG TABLET. PO SCH (20:02)
[2020-02-12] MEDS: ATORVASTATIN CALCIUM 20 MG TABLET PO SCH (20:02)
--- NOTE | 2020-02-12 22:36 | PDOC ---
Exam Note: Jay Note: Please also refer to the separate dictated note~for this date of service dictated separately.~Patient seen individually. Discussed the patient with Nursing staff reviewed the chart.~Reviewed interim history and current functioning. Reviewed vital signs,~Labs/ Radiology~and current medications noted below. Continue current treatment with the changes noted in the dictated addendum note Assessment: Vital Signs/I&O: Vital Signs Date Time Temp Pulse Resp B/P (MAP) Pulse Ox O2 Delivery O2 Flow Rate FiO2 02/12/20 20:59 98.4 93 02/12/20 16:21 90 22 118/65 (82) Room Air I & O 02/11/20 02/11/20 02/12/20 14:59 22:59 06:59 Intake Total 1000 ml 360 ml Balance 1000 ml 360 ml Current Medications: Meds: Current Medications Medications (Trade) Dose Ordered Sig/Yeny Route PRN Reason Start Time Stop Time Status Last Admin Dose Admin Divalproex Sodium (Depakote Sprinkles) 500 mg HS PO 02/12/20 21:00 02/12/20 20:02 I have reviewed the current psychotropics carefully including drug interactions. Risk benefit ratio favors no change other than as noted in my dictated progress note. 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
[2020-02-13] MEDS: traZODone 100 MG TABLET. PO SCH ×2 (00:15→20:31)
[2020-02-13] MEDS: traZODone 100 MG TABLET. PO PRN (00:24)
--- NOTE | 2020-02-13 01:12 | NUR ---
Patient restless for much of the evening, sleeping off and on. Crawling around the floor. Moderately redirectable. Keeps stating "I need to get these pants off" and trying to remove his hospital gown. PRN Atarax and Trazadone given crushed in pudding at 0015....minimal to moderate effect. Patient continues to wake up periodically but is easier to redirect. Will continue to monitor.
[2020-02-13 06:52] VITALS: BP 103/70
[2020-02-13] MEDS: PANTOPRAZOLE 40 MG TABLET. PO SCH (08:10)
[2020-02-13] MEDS: CLOPIDOGREL BISULFATE 75 MG TABLET PO SCH (08:11)
[2020-02-13] MEDS: LACOSAMIDE 50 MG TABLET PO SCH ×2 (08:11→20:32)
[2020-02-13] MEDS: CHOLECALCIFEROL (VITAMIN D3) 1,000 UNIT TABLET PO SCH (08:11)
[2020-02-13] MEDS: SENNOSIDES/DOCUSATE 8.6/50MG TABLET. PO SCH ×2 (08:11→20:31)
[2020-02-13] MEDS: DOCUSATE SODIUM 100 MG CAPSULE PO SCH ×2 (08:11→20:32)
[2020-02-13] MEDS: DIVALPROEX 125 MG CAP.SPRINK PO SCH ×2 (08:11→20:32)
[2020-02-13] MEDS: ASPIRIN CHEWABLE 81 MG TABLET. PO SCH (08:11)
[2020-02-13] MEDS: THIAMINE 100 MG TABLET. PO SCH (08:12)
[2020-02-13] MEDS: LORazepam 1 MG TABLET PO SCH ×3 (08:12→20:31)
[2020-02-13] MEDS: NICOTINE 7MG PATCH. TD SCH (08:12)
[2020-02-13] MEDS: HALOPERIDOL 5 MG TABLET PO SCH ×3 (08:12→20:31)
[2020-02-13] MEDS: MAGNESIUM OXIDE 400 MG TABLET PO SCH (08:12)
[2020-02-13] MEDS: levETIRAcetam 500 MG TABLET PO SCH ×2 (08:12→20:31)
[2020-02-13] MEDS: LACTULOSE 20 GM/30 ML SOLUTION. PO SCH ×2 (08:12→20:30)
--- NOTE | 2020-02-13 08:22 | PDOC ---
Exam Note: Jay Note: This note is a late entry for 02/11/2020 covers elements not covered in my initial note. Subjective: The patient was seen face to face in the evening of 02/11/2020. Nursing report was with Ailin COFFEY. Discussed the patient with nursing staff reviewed the chart. He slept 5-1/2 hours previous night. He remains confused. He has a helmet due to history of falls. Remains restless, trying to remove his helmet, agitated, yelling. Received hydroxyzine with little benefit. He gets scheduled Haldol and Ativan again with little benefit. Review of Systems: No CV, GI/, Pulmonary, Eye, ENT system symptoms on review. Reliability poor. Mental Status Exam: Oriented to himself and situation. Insight and judgment, recent and remote memory, attention and concentration, fund of knowledge is poor consistent with his diagnosis. He is not very verbally interactive. Laboratory Data: Reviewed. 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 Anxiety disorder unspecified. Impulse control disorder unspecified. Rest unchanged. Plan: Continue current psychotropics including Keppra and Lacosamide for his seizures. Depakote is being adjusted. Follow labs level. Maintain Haldol scheduled and Ativan scheduled, hydroxyzine p.r.n. Assessment: Vital Signs/I&O: Vital Signs Date Time Temp Pulse Resp B/P (MAP) Pulse Ox O2 Delivery O2 Flow Rate FiO2 02/13/20 06:52 97.8 69 18 103/70 (81) 96 02/12/20 16:21 Room Air I & O 02/12/20 02/12/20 02/13/20 15:00 23:00 07:00 Intake Total 360 ml 220 ml Balance 360 ml 220 ml Current Medications: Meds: Current Medications Medications (Trade) Dose Ordered Sig/Yeny Route PRN Reason Start Time Stop Time Status Last Admin Dose Admin Divalproex Sodium (Depakote Sprinkles) 500 mg HS PO 02/12/20 21:00 02/12/20 20:02 Divalproex Sodium (Depakote Sprinkles) 250 mg DAILY PO 02/13/20 09:00 02/13/20 08:11 I have reviewed the current psychotropics carefully including drug interactions. Risk benefit ratio favors no change other than as noted in my dictated progress note. 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
--- NOTE | 2020-02-13 08:23 | PDOC ---
Exam Note: Jay Note: This note is a late entry for 02/12/2020 covers elements not covered in my initial note. Subjective: The patient was seen face to face in the evening of 02/12/2020. Nursing report was with Rios COFFEY. Discussed the patient with nursing staff reviewed the chart. He remains confused. He remains on one-on-one status. Received Zyprexa in the evening. Valproic acid level is 50. Review of Systems: No CV, GI/, Pulmonary, Eye, ENT system symptoms on review. Reliability poor. Mental Status Exam: Oriented to himself and situation. Insight and judgment, recent and remote memory, attention and concentration, fund of knowledge is poor consistent with his diagnosis. Laboratory Data: Reviewed. 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 Anxiety disorder unspecified. Impulse control disorder unspecified. Rest unchanged. Plan: The patients medications have to be crushed. We will change the Depakote ER which is currently 500 mg h.s. with a level of 50. We will change this to Depakote Sprinkle 250 mg a.m. and 500 mg h.s. That is an increment of 250 mg. Check CBC, CMP, valproic acid level, ammonia level in 3 days. Adjust further as clinically indicated. He did receive Zyprexa in the evening. We will continue Haldol 10 mg t.i.d. and Ativan 1 mg t.i.d., Keppra and Lacosamide for his seizures; thiamine 100 mg daily, Zyprexa p.r.n., trazodone p.r.n. and schedu led at night and hydroxyzine p.r.n. Assessment: Vital Signs/I&O: Vital Signs Date Time Temp Pulse Resp B/P (MAP) Pulse Ox O2 Delivery O2 Flow Rate FiO2 02/13/20 06:52 97.8 69 18 103/70 (81) 96 02/12/20 16:21 Room Air I & O 02/12/20 02/12/20 02/13/20 15:00 23:00 07:00 Intake Total 360 ml 220 ml Balance 360 ml 220 ml Current Medications: Meds: Current Medications Medications (Trade) Dose Ordered Sig/Yeny Route PRN Reason Start Time Stop Time Status Last Admin Dose Admin Divalproex Sodium (Depakote Sprinkles) 500 mg HS PO 02/12/20 21:00 02/12/20 20:02 Divalproex Sodium (Depakote Sprinkles) 250 mg DAILY PO 02/13/20 09:00 02/13/20 08:11 I have reviewed the current psychotropics carefully including drug interactions. Risk benefit ratio favors no change other than as noted in my dictated progress note. 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
[2020-02-13] MEDS ORDERED: DIVALPROEX 125 MG CAP.SPRINK PO SCH (09:00)
--- NOTE | 2020-02-13 09:03 | NUR ---
Patient compliant with assessment and medication. Patient willing to tell staff his minimal needs at a low tone. Patient appears to respond to Cypriot better. Patient appears calmer this morning.
[2020-02-13] MEDS: hydrOXYzine HCL 25 MG TABLET PO PRN (11:01)
[2020-02-13 16:14] VITALS: BP 107/64
[2020-02-13] MEDS: traZODone 50 MG TABLET. PO SCH (17:16)
[2020-02-13] MEDS: ATORVASTATIN CALCIUM 20 MG TABLET PO SCH (20:31)
--- NOTE | 2020-02-13 21:18 | NUR ---
Nursing Note Pt in bed mumbling to himself, dozing in and out of sleep. Looks and gestures to the wall as if he is seeing things or people and speaks back to them. No agitation at this time.
--- NOTE | 2020-02-13 21:48 | NUR ---
Nursing Note Pt laying in bed calmly, but intermittently does what looks like oblique pulse crunches. He holds the position for a few seconds, lays back down and starts snoring again. This has been repeated on and off about 15 times since 2109. In no distress, less mumbling.
--- NOTE | 2020-02-13 22:02 | PDOC ---
Exam Note: Jay Note: Please also refer to the separate dictated note~for this date of service dictated separately.~Patient seen individually. Discussed the patient with Nursing staff reviewed the chart.~Reviewed interim history and current functioning. Reviewed vital signs,~Labs/ Radiology~and current medications noted below. Continue current treatment with the changes noted in the dictated addendum note Assessment: Vital Signs/I&O: Vital Signs Date Time Temp Pulse Resp B/P (MAP) Pulse Ox O2 Delivery O2 Flow Rate FiO2 02/13/20 18:08 97.3 02/13/20 16:14 73 16 107/64 (78) 94 Room Air I & O 02/12/20 02/12/20 02/13/20 15:00 23:00 07:00 Intake Total 360 ml 220 ml Balance 360 ml 220 ml Current Medications: Meds: Current Medications Medications (Trade) Dose Ordered Sig/Yeny Route PRN Reason Start Time Stop Time Status Last Admin Dose Admin Divalproex Sodium (Depakote Sprinkles) 250 mg DAILY PO 02/13/20 09:00 02/13/20 08:11 Trazodone HCl (Desyrel) 12.5 mg 1030,1700 PO 02/13/20 17:00 02/13/20 17:16 I have reviewed the current psychotropics carefully including drug interactions. Risk benefit ratio favors no change other than as noted in my dictated progress note. 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
[2020-02-14] MEDS: traZODone 100 MG TABLET. PO PRN (00:41)
[2020-02-14 02:13] LABS: BASO % 1 % (0-3); EOS # 0.3 x10^3/uL (0.0-0.7); EOS % 5 % (0-3); HEMATOCRIT 36.7 % (39.0-53.0); HEMOGLOBIN 11.6 g/dL (13.0-17.5); LYMPH # 1.9 x10^3/uL (1.0-4.8); LYMPH % 40 % (24-48); MEAN CORPUSCULAR HEMOGLOBIN 29 pg (25-35); MEAN CORPUSCULAR HGB CONC 32 g/dL (31-37); MEAN CORPUSCULAR VOLUME 92 fL (79-100); MONO # 0.6 x10^3/uL (0.0-1.1); MONO % 12 % (0-9); NEUT % 41 % (31-73); PLATELET COUNT 181 x10^3/uL (140-400); RED BLOOD COUNT 4.01 x10^6/uL (4.30-5.70); RED CELL DISTRIBUTION WIDTH 15.1 % (11.5-14.5); WHITE BLOOD COUNT 4.8 x10^3/uL (4.0-11.0)
--- NOTE | 2020-02-14 02:41 | RAD ---
EXAM: CHEST ONE VIEW. HISTORY: Aspiration. COMPARISON: None. FINDINGS: A frontal view of the chest is obtained. Hyperinflation suggests chronic obstructive pulmonary disease. There are no confluent infiltrates. There is no pneumothorax or pleural effusion. The heart is not enlarged. There are atherosclerotic calcifications of the aorta. IMPRESSION: 1. Correlate for chronic obstructive pulmonary disease. No confluent infiltrates. Electronically signed by: Cash Davalos MD (02/14/2020 2:38 AM) [facility]
[2020-02-14 02:52] LABS: CALCIUM 9.1 mg/dL (8.5-10.1); CREATININE 0.5 mg/dL (0.7-1.3); GFR 167.9; POTASSIUM 4.1 mmol/L (3.5-5.1)
--- NOTE | 2020-02-14 03:27 | NUR ---
This nurse alerted by DIRECTOR STAFFING sitting with patient that he was having difficulty clearing his secretions. Patient was sat up at a 90 degree angle, propped up by wedge and pillows. He continued to have difficulty clearing his secretions, unable to swallow or cough effectively. Patient was suctioned several times to clear secretions. Blood pressure 96/72, O2 sats on room air between 90-91%. Lung sounds raspy and diminished. Stat CXR and labs ordered. Patient mattress moved to bed frame at lowest position. Patient assisted by 3 staff members from wheelchair to bed. All side rails are up and patient is propped up with pillows and wedge. Required suctioning 2 more times. Currently, patient is awake. He is leaning forward and picking at the air repeatedly. He remains seated upright in his bed with 1:1 supervision. O2 sat maintaining at 92%. Bedside swallow study ordered. Will continue to monitor.
[2020-02-14 06:22] VITALS: BP 93/53
[2020-02-14] MEDS: PANTOPRAZOLE 40 MG TABLET. PO SCH (07:30)
--- NOTE | 2020-02-14 07:32 | PDOC ---
Exam Note: Jay Note: This note is a late entry for 02/13/2020 covers elements not covered in my initial note. Subjective: The patient was seen face to face in the evening of 02/13/2020. Nursing report was with Kris COFFEY. Discussed the patient with nursing staff reviewed the chart. He slept 3-1/2 hours previous night. He went to the dining room for lunch in a wheelchair and trying to get out in a wheelchair. He is restless with cares. He is somewhat paranoid, believes he is in senior living. Review of Systems: Ambulation impaired. No CV, GI/, Pulmonary, Eye, ENT system symptoms on review. Mental Status Exam: Oriented to himself. Insight and judgment, recent and remote memory, attention and concentration, fund of knowledge is poor consistent with his diagnosis. Laboratory Data: Reviewed. 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 Anxiety disorder unspecified. Impulse control disorder unspecified. Rest unchanged. Plan: No change from initial note. We have adjusted the Depakote. Repeat labs on 02/15/2020. Rest psychotropics remains unchanged. We will add trazodone 12.5 mg twice a day at 9 a.m. and 5 p.m. to help with the anxiety and agitation. We will make further adjustments as clinically indicated. Assessment: Vital Signs/I&O: Vital Signs Date Time Temp Pulse Resp B/P (MAP) Pulse Ox O2 Delivery O2 Flow Rate FiO2 02/14/20 06:22 97.4 75 18 93/53 (66) 93 02/13/20 16:14 Room Air I & O 02/13/20 02/13/20 02/14/20 15:00 23:00 07:00 Intake Total 840 ml 100 ml Balance 840 ml 100 ml Labs: Laboratory Tests Test 02/14/20 02:00 White Blood Count 4.8 x10^3/uL (4.0-11.0) Red Blood Count 4.01 x10^6/uL (4.30-5.70) L Hemoglobin 11.6 g/dL (13.0-17.5) L Hematocrit 36.7 % (39.0-53.0) L Mean Corpuscular Volume 92 fL (79-100) Mean Corpuscular Hemoglobin 29 pg (25-35) Mean Corpuscular Hemoglobin Concent 32 g/dL (31-37) Red Cell Distribution Width 15.1 % (11.5-14.5) H Platelet Count 181 x10^3/uL (140-400) Neutrophils (%) (Auto) 41 % (31-73) Lymphocytes (%) (Auto) 40 % (24-48) Monocytes (%) (Auto) 12 % (0-9) H Eosinophils (%) (Auto) 5 % (0-3) H Basophils (%) (Auto) 1 % (0-3) Neutrophils # (Auto) 2.0 x10^3uL (1.8-7.7) Lymphocytes # (Auto) 1.9 x10^3/uL (1.0-4.8) Monocytes # (Auto) 0.6 x10^3/uL (0.0-1.1) Eosinophils # (Auto) 0.3 x10^3/uL (0.0-0.7) Basophils # (Auto) 0.0 x10^3/uL (0.0-0.2) Sodium Level 135 mmol/L (136-145) L Potassium Level 4.1 mmol/L (3.5-5.1) Chloride Level 100 mmol/L (98-107) Carbon Dioxide Level 22 mmol/L (21-32) Anion Gap 13 (6-14) Blood Urea Nitrogen 14 mg/dL (8-26) Creatinine 0.5 mg/dL (0.7-1.3) L Estimated GFR (Cockcroft-Gault) 167.9 Glucose Level 100 mg/dL (70-99) H Calcium Level 9.1 mg/dL (8.5-10.1) Current Medications: Meds: Current Medications Medications (Trade) Dose Ordered Sig/Yeny Route PRN Reason Start Time Stop Time Status Last Admin Dose Admin Divalproex Sodium (Depakote Sprinkles) 250 mg DAILY PO 02/13/20 09:00 02/13/20 08:11 Trazodone HCl (Desyrel) 12.5 mg 1030,1700 PO 02/13/20 17:00 02/13/20 17:16 I have reviewed the current psychotropics carefully including drug interactions. Risk benefit ratio favors no change other than as noted in my dictated progress note. Diagnosis: Problems: (1) Hallucinations (2) Impulse control disorder (3) Anxiety disorder (4) Psychotic disorder (5) Wernicke-Korsakoff syndrome (alcoholic) (6) Dementia, vascular, with depression (7) Dementia, vascular, with delusions (8) Major neurocognitive disorder due to Alzheimer's disease, with behavioral disturbance ELMA HURD MD February 14, 2020 07:31
[2020-02-14] MEDS: LACOSAMIDE 50 MG TABLET PO SCH ×2 (08:50→20:53)
[2020-02-14] MEDS: levETIRAcetam 500 MG TABLET PO SCH ×2 (08:50→20:53)
[2020-02-14] MEDS: HALOPERIDOL 5 MG TABLET PO SCH ×4 (08:50→20:55)
[2020-02-14] MEDS: DIVALPROEX 125 MG CAP.SPRINK PO SCH ×2 (08:51→20:53)
[2020-02-14] MEDS: LORazepam 1 MG TABLET PO SCH ×4 (08:51→20:53)
[2020-02-14] MEDS: ASPIRIN CHEWABLE 81 MG TABLET. PO SCH (08:51)
[2020-02-14] MEDS: CLOPIDOGREL BISULFATE 75 MG TABLET PO SCH (08:51)
[2020-02-14] MEDS: DOCUSATE SODIUM 100 MG CAPSULE PO SCH ×2 (08:53→20:54)
[2020-02-14] MEDS: CHOLECALCIFEROL (VITAMIN D3) 1,000 UNIT TABLET PO SCH (08:53)
[2020-02-14] MEDS: THIAMINE 100 MG TABLET. PO SCH (08:53)
[2020-02-14] MEDS: MAGNESIUM OXIDE 400 MG TABLET PO SCH (08:53)
[2020-02-14] MEDS: SENNOSIDES/DOCUSATE 8.6/50MG TABLET. PO SCH ×2 (08:53→20:56)
[2020-02-14] MEDS: LACTULOSE 20 GM/30 ML SOLUTION. PO SCH ×2 (08:53→20:55)
[2020-02-14] MEDS: NICOTINE 7MG PATCH. TD SCH (08:54)
[2020-02-14] MEDS: traZODone 50 MG TABLET. PO SCH ×2 (10:50→17:00)
[2020-02-14 16:21] VITALS: BP 102/57
--- NOTE | 2020-02-14 16:58 | NUR ---
Nursing note: Pt in his room for morning meds and assessment. He was compliant with his psych meds crushed in pudding and cooperative with assessment. He does not appear to be in any pain or discomfort. Pt has been laying in his bed all day, restless at times. He has not urinated in 2 days. Bladder scan showed 392ml. Pt was assisted to the bathroom, but he was unable to urinate at that time. He is back to resting in his bed. Speech therapy came to do swallow study, but pt was not alert enough to complete. Pt remains NPO until swallow study is able to be performed. Will continue to monitor.
[2020-02-14 18:20] LABS: BGAS PH 7.41 (7.35-7.46)
--- NOTE | 2020-02-14 18:30 | NUR ---
Nursing note: Dr. Ram called and informed about pt not urinating. Orders for CBC, CMP, ABGs, chahal, UA, and infuse NS @ 100mls/hr received. 20 G IV started in L ankle with fluids infusing. Will call Dr. Ram with lab results.
[2020-02-14 18:47] LABS: BASO % 1 % (0-3); EOS # 0.1 x10^3/uL (0.0-0.7); EOS % 4 % (0-3); HEMATOCRIT 35.5 % (39.0-53.0); HEMOGLOBIN 11.5 g/dL (13.0-17.5); LYMPH # 1.6 x10^3/uL (1.0-4.8); LYMPH % 41 % (24-48); MEAN CORPUSCULAR HEMOGLOBIN 29 pg (25-35); MEAN CORPUSCULAR HGB CONC 33 g/dL (31-37); MEAN CORPUSCULAR VOLUME 89 fL (79-100); MONO # 0.4 x10^3/uL (0.0-1.1); MONO % 12 % (0-9); NEUT # 1.6 x10^3uL (1.8-7.7); NEUT % 42 % (31-73); PLATELET COUNT 186 x10^3/uL (140-400); RED CELL DISTRIBUTION WIDTH 15.2 % (11.5-14.5); WHITE BLOOD COUNT 3.8 x10^3/uL (4.0-11.0)
[2020-02-14] MEDS: IV NORMAL SALINE 1,000ML 1,000 ML IV SCH (18:52)
[2020-02-14 18:54] LABS: CALCIUM 9.1 mg/dL (8.5-10.1); CREATININE 0.7 mg/dL (0.7-1.3); GFR 113.9
[2020-02-14 19:00] LABS: ALBUMIN 3.3 g/dL (3.4-5.0); ALBUMIN/GLOBULIN RATIO 0.9 (1.0-1.7); TOTAL BILIRUBIN 0.4 mg/dL (0.2-1.0); TOTAL PROTEIN 6.9 g/dL (6.4-8.2)
[2020-02-14 19:57] LABS: BILIRUBIN,URINE NEG (NEG); CLARITY,URINE CLEAR; COLOR,URINE YELLOW; GLUCOSE,URINE NEG (NEG)
[2020-02-14 19:58] LABS: BACTERIA,URINE 0 /HPF (0-FEW); HYALINE CASTS, URINE OCC /HPF; NITRITE,URINE NEG (NEG); RBC,URINE 0 /HPF (0-2); SQUAMOUS EPITHELIAL CELL,UR FEW /LPF; UROBILINOGEN,URINE 0.2 mg/dL (0.2 mg/dL)
--- NOTE | 2020-02-14 20:00 | NUR ---
Nursing note: Called Dr. Ram with lab results. He wants to be called in the am if pt is still sedated, also said to hold meds until alert.
[2020-02-14] MEDS: traZODone 100 MG TABLET. PO SCH (20:55)
[2020-02-14] MEDS: ATORVASTATIN CALCIUM 20 MG TABLET PO SCH (20:55)
--- NOTE | 2020-02-14 22:07 | NUR ---
Nursing note: Assumed care of pt in his room. He is no longer sedated and is restless and attempting to pull out catheter and IV. Gave pt his psyche meds crushed in pudding and followed with thickened water. He took them without difficulty. Mitts applied to pts hands to prevent pulling at IV and Catheter.
[2020-02-15] MEDS: IV NORMAL SALINE 1,000ML 1,000 ML IV SCH ×3 (04:45→22:29)
[2020-02-15 05:48] VITALS: BP 108/71
[2020-02-15] MEDS: NICOTINE 7MG PATCH. TD SCH (07:32)
[2020-02-15] MEDS: LACOSAMIDE 50 MG TABLET PO SCH ×2 (07:32→19:47)
[2020-02-15] MEDS: LACTULOSE 20 GM/30 ML SOLUTION. PO SCH ×2 (07:32→19:45)
[2020-02-15] MEDS: levETIRAcetam 500 MG TABLET PO SCH ×2 (07:33→19:47)
[2020-02-15] MEDS: LORazepam 1 MG TABLET PO SCH ×3 (07:33→19:48)
[2020-02-15] MEDS: PANTOPRAZOLE 40 MG TABLET. PO SCH (07:33)
[2020-02-15] MEDS: CHOLECALCIFEROL (VITAMIN D3) 1,000 UNIT TABLET PO SCH (07:33)
[2020-02-15] MEDS: ASPIRIN CHEWABLE 81 MG TABLET. PO SCH (07:33)
[2020-02-15] MEDS: DIVALPROEX 125 MG CAP.SPRINK PO SCH ×2 (07:33→19:46)
[2020-02-15] MEDS: HALOPERIDOL 5 MG TABLET PO SCH ×3 (07:34→19:48)
[2020-02-15] MEDS: CLOPIDOGREL BISULFATE 75 MG TABLET PO SCH (07:34)
[2020-02-15] MEDS: SENNOSIDES/DOCUSATE 8.6/50MG TABLET. PO SCH ×2 (07:34→19:47)
[2020-02-15] MEDS: MAGNESIUM OXIDE 400 MG TABLET PO SCH (07:35)
[2020-02-15] MEDS: DOCUSATE SODIUM 100 MG CAPSULE PO SCH ×2 (07:35→19:46)
[2020-02-15] MEDS: THIAMINE 100 MG TABLET. PO SCH (08:16)
--- NOTE | 2020-02-15 08:23 | PDOC ---
Exam Note: Jay Note: This is a late entry for DOS 02/14/2020. Please also refer to the separate dictated note~for this date of service dictated separately.~Patient seen individually. Discussed the patient with Nursing staff reviewed the chart.~Reviewed interim history and current functioning. Reviewed vital signs,~Labs/ Radiology~and current medications noted below. Continue current treatment with the changes noted in the dictated addendum note Assessment: Vital Signs/I&O: Vital Signs Date Time Temp Pulse Resp B/P (MAP) Pulse Ox O2 Delivery O2 Flow Rate FiO2 02/15/20 05:48 97.3 61 18 108/71 (83) 97 02/13/20 16:14 Room Air I & O 02/14/20 02/14/20 02/15/20 15:00 23:00 07:00 Intake Total 130 ml 180 ml Output Total 400 ml 850 ml Balance 130 ml -220 ml -850 ml Labs: Laboratory Tests Test 02/14/20 18:10 02/14/20 18:30 02/14/20 18:39 Blood pH 7.41 (7.35-7.46) Blood Gas PCO2 41 mmHg (35-46) Blood Gas PO2 69 mmHg (80-100) L Blood Gas HCO3 26 mmol/L (21-28) Arterial Bld O2 Saturation (Calc) 94 % (92-99) FiO2 21 % Urine Collection Type U cath Urine Color Yellow Urine Clarity Clear Urine pH 7.0 Urine Specific [place] 1.020 Urine Protein Neg (NEG-TRACE) Urine Glucose (UA) Neg mg/dL (NEG) Urine Ketones (Stick) Trace mg/dL (NEG) Urine Blood Neg (NEG) Urine Nitrite Neg (NEG) Urine Bilirubin Neg (NEG) Urine Urobilinogen Dipstick 0.2 mg/dL (0.2 mg/dL) Urine Leukocyte Esterase Neg (NEG) Urine RBC 0 /HPF (0-2) Urine WBC 1-4 /HPF (0-4) Urine Squamous Epithelial Cells Few /LPF Urine Bacteria 0 /HPF (0-FEW) Urine Hyaline Casts Occ /HPF Urine Mucus Marked /LPF White Blood Count 3.8 x10^3/uL (4.0-11.0) L Red Blood Count 4.00 x10^6/uL (4.30-5.70) L Hemoglobin 11.5 g/dL (13.0-17.5) L Hematocrit 35.5 % (39.0-53.0) L Mean Corpuscular Volume 89 fL (79-100) Mean Corpuscular Hemoglobin 29 pg (25-35) Mean Corpuscular Hemoglobin Concent 33 g/dL (31-37) Red Cell Distribution Width 15.2 % (11.5-14.5) H Platelet Count 186 x10^3/uL (140-400) Neutrophils (%) (Auto) 42 % (31-73) Lymphocytes (%) (Auto) 41 % (24-48) Monocytes (%) (Auto) 12 % (0-9) H Eosinophils (%) (Auto) 4 % (0-3) H Basophils (%) (Auto) 1 % (0-3) Neutrophils # (Auto) 1.6 x10^3uL (1.8-7.7) L Lymphocytes # (Auto) 1.6 x10^3/uL (1.0-4.8) Monocytes # (Auto) 0.4 x10^3/uL (0.0-1.1) Eosinophils # (Auto) 0.1 x10^3/uL (0.0-0.7) Basophils # (Auto) 0.0 x10^3/uL (0.0-0.2) Sodium Level 138 mmol/L (136-145) Potassium Level 4.0 mmol/L (3.5-5.1) Chloride Level 102 mmol/L (98-107) Carbon Dioxide Level 26 mmol/L (21-32) Anion Gap 10 (6-14) Blood Urea Nitrogen 19 mg/dL (8-26) Creatinine 0.7 mg/dL (0.7-1.3) Estimated GFR (Cockcroft-Gault) 113.9 BUN/Creatinine Ratio 27 (6-20) H Glucose Level 94 mg/dL (70-99) Calcium Level 9.1 mg/dL (8.5-10.1) Total Bilirubin 0.4 mg/dL (0.2-1.0) Aspartate Amino Transferase (AST) 24 U/L (15-37) Alanine Aminotransferase (ALT) 18 U/L (16-63) Alkaline Phosphatase 101 U/L (46-116) Total Protein 6.9 g/dL (6.4-8.2) Albumin 3.3 g/dL (3.4-5.0) L Albumin/Globulin Ratio 0.9 (1.0-1.7) L Current Medications: Meds: Current Medications Medications (Trade) Dose Ordered Sig/Yeny Route PRN Reason Start Time Stop Time Status Last Admin Dose Admin Haloperidol (Haldol) 5 mg [id number] PO 02/14/20 14:00 02/15/20 07:34 Sodium Chloride 1,000 ml @ 100 mls/hr Q10H IV 02/14/20 18:45 02/15/20 04:45 I have reviewed the current psychotropics carefully including drug interactions. Risk benefit ratio favors no change other than as noted in my dictated progress note. Diagnosis: Problems: (1) Hallucinations (2) Impulse control disorder (3) Anxiety disorder (4) Psychotic disorder (5) Wernicke-Korsakoff syndrome (alcoholic) (6) Dementia, vascular, with depression (7) Dementia, vascular, with delusions (8) Major neurocognitive disorder due to Alzheimer's disease, with behavioral disturbance ELMA HURD MD February 15, 2020 08:23
--- NOTE | 2020-02-15 08:55 | NUR ---
Assumed care when patient was in his room in bed. Patient alert, restless, fidgety, and continually putting legs over side of the bed. Patient talking but was difficult to understand. Compliant with medication administration and assessment. Medication given crushed in pudding without difficulty. Will continue 1:1 monitoring.
[2020-02-15] MEDS: traZODone 50 MG TABLET. PO SCH ×2 (09:42→16:08)
--- NOTE | 2020-02-15 10:22 | NUR ---
Faxed current notes, medication list, and labs to Violet at [facility] for review. Awaiting outcome on coverage. Addendum: 02/15/20 at 1517 by CHERYL SANTIAGO Received fax from [facility] authorizing coverage thru 02/18/20, next concurrent review will be due on 02/18/20.
--- NOTE | 2020-02-15 11:31 | NUR ---
Aleah with Speech Therapy called to advise advancing patient diet due to decreased difficulty in swallowing. This recommendation cleared by the doctor. Will give patient mechanical soft ground meat for lunch and monitor.
[2020-02-15 16:00] VITALS: BP 114/70
--- NOTE | 2020-02-15 16:13 | NUR ---
Patient compliant with bed bath and linen change. Took pm medications without difficulty crushed in pudding. Patient said he wanted to finish pudding when this nurse asked him and followed directions to open his mouth when he wanted another bite. No sign of aspiration or difficulty swallowing. Patient mumbling but difficult to understand. Will continue 1:1 monitoring.
[2020-02-15] MEDS: hydrOXYzine HCL 25 MG TABLET PO PRN ×2 (16:59→22:28)
[2020-02-15 19:41] LABS: BASO % 0 % (0-3); EOS # 0.1 x10^3/uL (0.0-0.7); EOS % 3 % (0-3); HEMATOCRIT 35.9 % (39.0-53.0); HEMOGLOBIN 11.6 g/dL (13.0-17.5); LYMPH # 1.4 x10^3/uL (1.0-4.8); LYMPH % 34 % (24-48); MEAN CORPUSCULAR HEMOGLOBIN 28 pg (25-35); MEAN CORPUSCULAR HGB CONC 32 g/dL (31-37); MEAN CORPUSCULAR VOLUME 88 fL (79-100); MONO # 0.5 x10^3/uL (0.0-1.1); MONO % 12 % (0-9); NEUT % 50 % (31-73); PLATELET COUNT 190 x10^3/uL (140-400); RED BLOOD COUNT 4.07 x10^6/uL (4.30-5.70); RED CELL DISTRIBUTION WIDTH 14.6 % (11.5-14.5)
[2020-02-15] MEDS: ATORVASTATIN CALCIUM 20 MG TABLET PO SCH (19:47)
[2020-02-15] MEDS: traZODone 100 MG TABLET. PO SCH ×2 (19:48→22:29)
--- NOTE | 2020-02-15 19:54 | PN ---
DATE: 02/15/2020 SUBJECTIVE: The patient is a 64-year-old male patient whom I have contacted yesterday multiple times on account of altered mental status. We did check his lab work and blood gases. His pH was 7.41, pCO2 was 41, pO2 of 69, bicarbonate 26 and oxygen saturation was 94% on FiO2 of 21%. His white cell count is normal; hemoglobin, hematocrit and platelets are all within normal range and his chemistry also was within acceptable range. However, he has not been able to eat or drink. We did check his urine and his urinalysis was essentially unremarkable. His toxic screen also showed his valproic acid was 50 mcg/mL. We did start him on IV fluids and normal saline at 100 mL per hour. When I saw him today, he was definitely more awake, alert, responds appropriately and follows commands, although he is at times confused. OBJECTIVE: VITAL SIGNS: His heart rate was 79, blood pressure was 114/70, temperature 98, respiratory rate was 16, and oxygen saturation was 94%. HEAD, EYES, EARS, NOSE AND THROAT: Normocephalic, atraumatic. NECK: Supple. CARDIAC: Normal first and second heart sounds. No gallop, rub or murmur. CHEST: Clear to auscultation. No crepitation or rhonchi. ABDOMEN: Distended, soft, nontender. NEUROLOGIC: He is definitely more awake, alert, although continued to be confused. I reviewed all his labs, seem to be well within normal range. PLAN: I will continue with IV fluids for today. I will check his basic metabolic profile as well as ammonia tomorrow and decide on further management accordingly. AKHIL MCKEON MD DR: LIAT/orestes JOB#: [id number] / [id number]
[2020-02-15 19:56] LABS: ALBUMIN 3.2 g/dL (3.4-5.0); ALBUMIN/GLOBULIN RATIO 0.8 (1.0-1.7); ALK PHOS 103 U/L (46-116); ALT (SGPT) 19 U/L (16-63); ANION GAP 10 (6-14); AST (SGOT) 22 U/L (15-37); BLOOD UREA NITROGEN 13 mg/dL (8-26); BUN/CREATININE RATIO 19 (6-20); CALCIUM 8.9 mg/dL (8.5-10.1); CARBON DIOXIDE 25 mmol/L (21-32); CHLORIDE 105 mmol/L (98-107); CREATININE 0.7 mg/dL (0.7-1.3); GFR 113.9; GLUCOSE 107 mg/dL (70-99); POTASSIUM 3.8 mmol/L (3.5-5.1); SODIUM 140 mmol/L (136-145); TOTAL BILIRUBIN 0.3 mg/dL (0.2-1.0); TOTAL PROTEIN 7.2 g/dL (6.4-8.2)
[2020-02-15 20:03] LABS: VAL ACID 61 mcg/mL (50-100)
--- NOTE | 2020-02-15 21:46 | NUR ---
Nursing note: Assumed care of pt in his room. He is fidgeting and attempting to remove the mitts on his hands. He is calm though and compliant with meds in pudding and followed by thickened chocolate boost. No c/o pain.
--- NOTE | 2020-02-15 22:11 | PDOC ---
Exam Note: Jay Note: Please also refer to the separate dictated note~for this date of service dictated separately.~Patient seen individually. Discussed the patient with Nursing staff reviewed the chart.~Reviewed interim history and current functioning. Reviewed vital signs,~Labs/ Radiology~and current medications noted below. Continue current treatment with the changes noted in the dictated addendum note Assessment: Vital Signs/I&O: Vital Signs Date Time Temp Pulse Resp B/P (MAP) Pulse Ox O2 Delivery O2 Flow Rate FiO2 02/15/20 18:38 98.4 02/15/20 16:00 79 16 114/70 (85) 94 02/13/20 16:14 Room Air I & O 02/14/20 02/14/20 02/15/20 15:00 23:00 07:00 Intake Total 130 ml 180 ml Output Total 400 ml 850 ml Balance 130 ml -220 ml -850 ml Labs: Laboratory Tests Test 02/15/20 19:11 White Blood Count 4.0 x10^3/uL (4.0-11.0) Red Blood Count 4.07 x10^6/uL (4.30-5.70) L Hemoglobin 11.6 g/dL (13.0-17.5) L Hematocrit 35.9 % (39.0-53.0) L Mean Corpuscular Volume 88 fL (79-100) Mean Corpuscular Hemoglobin 28 pg (25-35) Mean Corpuscular Hemoglobin Concent 32 g/dL (31-37) Red Cell Distribution Width 14.6 % (11.5-14.5) H Platelet Count 190 x10^3/uL (140-400) Neutrophils (%) (Auto) 50 % (31-73) Lymphocytes (%) (Auto) 34 % (24-48) Monocytes (%) (Auto) 12 % (0-9) H Eosinophils (%) (Auto) 3 % (0-3) Basophils (%) (Auto) 0 % (0-3) Neutrophils # (Auto) 2.0 x10^3uL (1.8-7.7) Lymphocytes # (Auto) 1.4 x10^3/uL (1.0-4.8) Monocytes # (Auto) 0.5 x10^3/uL (0.0-1.1) Eosinophils # (Auto) 0.1 x10^3/uL (0.0-0.7) Basophils # (Auto) 0.0 x10^3/uL (0.0-0.2) Sodium Level 140 mmol/L (136-145) Potassium Level 3.8 mmol/L (3.5-5.1) Chloride Level 105 mmol/L (98-107) Carbon Dioxide Level 25 mmol/L (21-32) Anion Gap 10 (6-14) Blood Urea Nitrogen 13 mg/dL (8-26) Creatinine 0.7 mg/dL (0.7-1.3) Estimated GFR (Cockcroft-Gault) 113.9 BUN/Creatinine Ratio 19 (6-20) Glucose Level 107 mg/dL (70-99) H Calcium Level 8.9 mg/dL (8.5-10.1) Total Bilirubin 0.3 mg/dL (0.2-1.0) Aspartate Amino Transferase (AST) 22 U/L (15-37) Alanine Aminotransferase (ALT) 19 U/L (16-63) Alkaline Phosphatase 103 U/L (46-116) Ammonia 60 mcmol/L (11-34) H Total Protein 7.2 g/dL (6.4-8.2) Albumin 3.2 g/dL (3.4-5.0) L Albumin/Globulin Ratio 0.8 (1.0-1.7) L Valproic Acid Level 61 mcg/mL (50-100) Valproic Acid Last Dose Date 02/14/20 Valproic Acid Last Dose Time 2100 Current Medications: I have reviewed the current psychotropics carefully including drug interactions. Risk benefit ratio favors no change other than as noted in my dictated progress note. Diagnosis: Problems: (1) Hallucinations (2) Impulse control disorder (3) Anxiety disorder (4) Psychotic disorder (5) Wernicke-Korsakoff syndrome (alcoholic) (6) Dementia, vascular, with depression (7) Dementia, vascular, with delusions (8) Major neurocognitive disorder due to Alzheimer's disease, with behavioral disturbance ELMA HURD MD February 15, 2020 22:11
[2020-02-16 05:14] VITALS: BP 122/68
[2020-02-16 07:26] LABS: CALCIUM 8.9 mg/dL (8.5-10.1); CREATININE 0.5 mg/dL (0.7-1.3); GFR 167.9; POTASSIUM 3.8 mmol/L (3.5-5.1)
--- NOTE | 2020-02-16 07:54 | PDOC ---
Exam Note: Jay Note: This note is a late entry for 02/14/2020 covers elements not covered in my initial note. Subjective: The patient was seen face to face in the evening of 02/14/2020. Nursing report was with Danika COFFEY. Discussed the patient with nursing staff reviewed the chart. He slept 1-1/4 hours previous night. He keeps his eyes closed, restless, confused. He has been suctioned previous night and we are doing a swallow study. Review of Systems: Ambulation impaired. No CV, GI/, Pulmonary, Eye, ENT system symptoms on review. Mental Status Exam: Oriented to himself. Insight and judgment, recent and remote memory, attention and concentration, fund of knowledge is poor consistent with his diagnosis. Laboratory Data: Reviewed. 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 Anxiety disorder unspecified. Impulse control disorder unspecified. Rest unchanged. Plan: No change from initial note. The patient is on Haldol 10 mg t.i.d. We will reduce to 5 mg b.i.d. and 10 mg h.s. Maintain Ativan 1 mg t.i.d. We will reduce later. Maintain Keppra, Lacosamide for seizures, melatonin 6 mg h.s., Zyprexa and trazodone p.r.n., Depakote is being adjusted. Labs level to be checked on 02/15/2020. We will make further adjustments thereafter. Assessment: Vital Signs/I&O: Vital Signs Date Time Temp Pulse Resp B/P (MAP) Pulse Ox O2 Delivery O2 Flow Rate FiO2 02/16/20 05:14 97.1 66 18 122/68 (86) 93 02/13/20 16:14 Room Air I & O 02/15/20 02/15/20 02/16/20 15:00 23:00 07:00 Intake Total 390 ml 1034 ml 1125 ml Output Total 100 ml 650 ml 1200 ml Balance 290 ml 384 ml -75 ml Labs: Laboratory Tests Test 02/15/20 19:11 02/16/20 07:00 White Blood Count 4.0 x10^3/uL (4.0-11.0) Red Blood Count 4.07 x10^6/uL (4.30-5.70) L Hemoglobin 11.6 g/dL (13.0-17.5) L Hematocrit 35.9 % (39.0-53.0) L Mean Corpuscular Volume 88 fL (79-100) Mean Corpuscular Hemoglobin 28 pg (25-35) Mean Corpuscular Hemoglobin Concent 32 g/dL (31-37) Red Cell Distribution Width 14.6 % (11.5-14.5) H Platelet Count 190 x10^3/uL (140-400) Neutrophils (%) (Auto) 50 % (31-73) Lymphocytes (%) (Auto) 34 % (24-48) Monocytes (%) (Auto) 12 % (0-9) H Eosinophils (%) (Auto) 3 % (0-3) Basophils (%) (Auto) 0 % (0-3) Neutrophils # (Auto) 2.0 x10^3uL (1.8-7.7) Lymphocytes # (Auto) 1.4 x10^3/uL (1.0-4.8) Monocytes # (Auto) 0.5 x10^3/uL (0.0-1.1) Eosinophils # (Auto) 0.1 x10^3/uL (0.0-0.7) Basophils # (Auto) 0.0 x10^3/uL (0.0-0.2) Sodium Level 140 mmol/L (136-145) 139 mmol/L (136-145) Potassium Level 3.8 mmol/L (3.5-5.1) 3.8 mmol/L (3.5-5.1) Chloride Level 105 mmol/L (98-107) 102 mmol/L (98-107) Carbon Dioxide Level 25 mmol/L (21-32) 28 mmol/L (21-32) Anion Gap 10 (6-14) 9 (6-14) Blood Urea Nitrogen 13 mg/dL (8-26) 9 mg/dL (8-26) Creatinine 0.7 mg/dL (0.7-1.3) 0.5 mg/dL (0.7-1.3) L Estimated GFR (Cockcroft-Gault) 113.9 167.9 BUN/Creatinine Ratio 19 (6-20) Glucose Level 107 mg/dL (70-99) H 93 mg/dL (70-99) Calcium Level 8.9 mg/dL (8.5-10.1) 8.9 mg/dL (8.5-10.1) Total Bilirubin 0.3 mg/dL (0.2-1.0) Aspartate Amino Transferase (AST) 22 U/L (15-37) Alanine Aminotransferase (ALT) 19 U/L (16-63) Alkaline Phosphatase 103 U/L (46-116) Ammonia 60 mcmol/L (11-34) H < 10 mcmol/L (11-34) L Total Protein 7.2 g/dL (6.4-8.2) Albumin 3.2 g/dL (3.4-5.0) L Albumin/Globulin Ratio 0.8 (1.0-1.7) L Valproic Acid Level 61 mcg/mL (50-100) Valproic Acid Last Dose Date 02/14/20 Valproic Acid Last Dose Time 2100 Current Medications: I have reviewed the current psychotropics carefully including drug interactions. Risk benefit ratio favors no change other than as noted in my dictated progress note. Diagnosis: Problems: (1) Hallucinations (2) Impulse control disorder (3) Anxiety disorder (4) Psychotic disorder (5) Wernicke-Korsakoff syndrome (alcoholic) (6) Dementia, vascular, with depression (7) Dementia, vascular, with delusions (8) Major neurocognitive disorder due to Alzheimer's disease, with behavioral disturbance EMLA HURD MD February 16, 2020 07:54
--- NOTE | 2020-02-16 08:16 | PDOC ---
Exam Note: Jay Note: This note is a late entry for 02/15/2020 covers elements not covered in my initial note. Subjective: The patient was seen face to face with the treatment team in the morning including Yasmeen aCrrington, ramandeep Munson (social professionals), Estephanie, Activity Therapy. Nursing report was with Edith COFFEY. Discussed the patient with nursing staff in the evening reviewed the chart. He slept reasonably previous night. He was up and about at times, restless. He was agitated in the morning, difficult to understand. He did have bath in the evening. He is compliant with medications. Review of Systems: Ambulation impaired. No CV, GI/, Pulmonary, Eye, ENT system symptoms on review. Mental Status Exam: Oriented to himself. Insight and judgment, recent and remote memory, attention and concentration, fund of knowledge is poor consistent with his diagnosis. Laboratory Data: Reviewed. 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 Anxiety disorder unspecified. Impulse control disorder unspecified. Rest unchanged. Plan: No change from initial note. Assessment: Vital Signs/I&O: Vital Signs Date Time Temp Pulse Resp B/P (MAP) Pulse Ox O2 Delivery O2 Flow Rate FiO2 02/16/20 05:14 97.1 66 18 122/68 (86) 93 02/13/20 16:14 Room Air I & O 02/15/20 02/15/20 02/16/20 15:00 23:00 07:00 Intake Total 390 ml 1034 ml 1125 ml Output Total 100 ml 650 ml 1200 ml Balance 290 ml 384 ml -75 ml Labs: Laboratory Tests Test 02/15/20 19:11 02/16/20 07:00 White Blood Count 4.0 x10^3/uL (4.0-11.0) Red Blood Count 4.07 x10^6/uL (4.30-5.70) L Hemoglobin 11.6 g/dL (13.0-17.5) L Hematocrit 35.9 % (39.0-53.0) L Mean Corpuscular Volume 88 fL (79-100) Mean Corpuscular Hemoglobin 28 pg (25-35) Mean Corpuscular Hemoglobin Concent 32 g/dL (31-37) Red Cell Distribution Width 14.6 % (11.5-14.5) H Platelet Count 190 x10^3/uL (140-400) Neutrophils (%) (Auto) 50 % (31-73) Lymphocytes (%) (Auto) 34 % (24-48) Monocytes (%) (Auto) 12 % (0-9) H Eosinophils (%) (Auto) 3 % (0-3) Basophils (%) (Auto) 0 % (0-3) Neutrophils # (Auto) 2.0 x10^3uL (1.8-7.7) Lymphocytes # (Auto) 1.4 x10^3/uL (1.0-4.8) Monocytes # (Auto) 0.5 x10^3/uL (0.0-1.1) Eosinophils # (Auto) 0.1 x10^3/uL (0.0-0.7) Basophils # (Auto) 0.0 x10^3/uL (0.0-0.2) Sodium Level 140 mmol/L (136-145) 139 mmol/L (136-145) Potassium Level 3.8 mmol/L (3.5-5.1) 3.8 mmol/L (3.5-5.1) Chloride Level 105 mmol/L (98-107) 102 mmol/L (98-107) Carbon Dioxide Level 25 mmol/L (21-32) 28 mmol/L (21-32) Anion Gap 10 (6-14) 9 (6-14) Blood Urea Nitrogen 13 mg/dL (8-26) 9 mg/dL (8-26) Creatinine 0.7 mg/dL (0.7-1.3) 0.5 mg/dL (0.7-1.3) L Estimated GFR (Cockcroft-Gault) 113.9 167.9 BUN/Creatinine Ratio 19 (6-20) Glucose Level 107 mg/dL (70-99) H 93 mg/dL (70-99) Calcium Level 8.9 mg/dL (8.5-10.1) 8.9 mg/dL (8.5-10.1) Total Bilirubin 0.3 mg/dL (0.2-1.0) Aspartate Amino Transferase (AST) 22 U/L (15-37) Alanine Aminotransferase (ALT) 19 U/L (16-63) Alkaline Phosphatase 103 U/L (46-116) Ammonia 60 mcmol/L (11-34) H < 10 mcmol/L (11-34) L Total Protein 7.2 g/dL (6.4-8.2) Albumin 3.2 g/dL (3.4-5.0) L Albumin/Globulin Ratio 0.8 (1.0-1.7) L Valproic Acid Level 61 mcg/mL (50-100) Valproic Acid Last Dose Date 02/14/20 Valproic Acid Last Dose Time 2100 Current Medications: I have reviewed the current psychotropics carefully including drug interactions. Risk benefit ratio favors no change other than as noted in my dictated progress note. Diagnosis: Problems: (1) Hallucinations (2) Impulse control disorder (3) Anxiety disorder (4) Psychotic disorder (5) Wernicke-Korsakoff syndrome (alcoholic) (6) Dementia, vascular, with depression (7) Dementia, vascular, with delusions (8) Major neurocognitive disorder due to Alzheimer's disease, with behavioral disturbance ELMA HURD MD February 16, 2020 08:15
[2020-02-16] MEDS: CHOLECALCIFEROL (VITAMIN D3) 1,000 UNIT TABLET PO SCH (08:54)
[2020-02-16] MEDS: DIVALPROEX 125 MG CAP.SPRINK PO SCH ×2 (08:54→20:39)
[2020-02-16] MEDS: DOCUSATE SODIUM 100 MG CAPSULE PO SCH ×2 (08:54→20:41)
[2020-02-16] MEDS: levETIRAcetam 500 MG TABLET PO SCH ×2 (08:54→20:41)
[2020-02-16] MEDS: PANTOPRAZOLE 40 MG TABLET. PO SCH (08:54)
[2020-02-16] MEDS: MAGNESIUM OXIDE 400 MG TABLET PO SCH (08:54)
[2020-02-16] MEDS: NICOTINE 7MG PATCH. TD SCH (08:54)
[2020-02-16] MEDS: LACTULOSE 20 GM/30 ML SOLUTION. PO SCH ×2 (08:54→20:39)
[2020-02-16] MEDS: SENNOSIDES/DOCUSATE 8.6/50MG TABLET. PO SCH ×2 (08:54→20:40)
[2020-02-16] MEDS: CLOPIDOGREL BISULFATE 75 MG TABLET PO SCH (08:55)
[2020-02-16] MEDS: HALOPERIDOL 5 MG TABLET PO SCH ×3 (08:55→20:40)
[2020-02-16] MEDS: ASPIRIN CHEWABLE 81 MG TABLET. PO SCH (08:55)
[2020-02-16] MEDS: LORazepam 1 MG TABLET PO SCH ×3 (08:55→20:40)
[2020-02-16] MEDS: LACOSAMIDE 50 MG TABLET PO SCH ×2 (08:55→20:41)
[2020-02-16] MEDS: THIAMINE 100 MG TABLET. PO SCH (08:56)
[2020-02-16] MEDS: traZODone 50 MG TABLET. PO SCH ×2 (10:30→17:00)
[2020-02-16] MEDS: IV NORMAL SALINE 1,000ML 1,000 ML IV SCH ×2 (10:45→20:38)
[2020-02-16] MEDS: hydrOXYzine HCL 25 MG TABLET PO PRN (13:31)
[2020-02-16 15:57] VITALS: BP 118/72
--- NOTE | 2020-02-16 17:13 | NUR ---
Pt in bed for meals. Has been compliant with meds. Restless. 1:1 at bedside. Pt impulsve and will attempt to get out of bed. IV fluids infusing. [place] patent.
[2020-02-16] MEDS: traZODone 100 MG TABLET. PO PRN (20:40)
[2020-02-16] MEDS: ATORVASTATIN CALCIUM 20 MG TABLET PO SCH (20:41)
--- NOTE | 2020-02-16 22:11 | PDOC ---
Exam Note: Jay Note: Please also refer to the separate dictated note~for this date of service dictated separately.~Patient seen individually. Discussed the patient with Nursing staff reviewed the chart.~Reviewed interim history and current functioning. Reviewed vital signs,~Labs/ Radiology~and current medications noted below. Continue current treatment with the changes noted in the dictated addendum note Assessment: Vital Signs/I&O: Vital Signs Date Time Temp Pulse Resp B/P (MAP) Pulse Ox O2 Delivery O2 Flow Rate FiO2 02/16/20 20:35 97.7 100 02/16/20 15:57 75 16 118/72 (87) 02/13/20 16:14 Room Air I & O 02/15/20 02/15/20 02/16/20 15:00 23:00 07:00 Intake Total 390 ml 1034 ml 1125 ml Output Total 100 ml 650 ml 1200 ml Balance 290 ml 384 ml -75 ml Labs: Laboratory Tests Test 02/16/20 07:00 Sodium Level 139 mmol/L (136-145) Potassium Level 3.8 mmol/L (3.5-5.1) Chloride Level 102 mmol/L (98-107) Carbon Dioxide Level 28 mmol/L (21-32) Anion Gap 9 (6-14) Blood Urea Nitrogen 9 mg/dL (8-26) Creatinine 0.5 mg/dL (0.7-1.3) L Estimated GFR (Cockcroft-Gault) 167.9 Glucose Level 93 mg/dL (70-99) Calcium Level 8.9 mg/dL (8.5-10.1) Ammonia < 10 mcmol/L (11-34) L Current Medications: I have reviewed the current psychotropics carefully including drug interactions. Risk benefit ratio favors no change other than as noted in my dictated progress note. Diagnosis: Problems: (1) Hallucinations (2) Impulse control disorder (3) Anxiety disorder (4) Psychotic disorder (5) Wernicke-Korsakoff syndrome (alcoholic) (6) Dementia, vascular, with depression (7) Dementia, vascular, with delusions (8) Major neurocognitive disorder due to Alzheimer's disease, with behavioral disturbance ELMA HURD MD February 16, 2020 22:11
--- NOTE | 2020-02-16 23:43 | NUR ---
Pt resting in bed at shift change. Medications administered crushed in nectar thick chocolate ensure. No behaviors noted at this time. 1:1 at bedside for safety.
[2020-02-17 06:03] LABS: BASO % 1 % (0-3); EOS # 0.3 x10^3/uL (0.0-0.7); EOS % 6 % (0-3); HEMATOCRIT 37.3 % (39.0-53.0); HEMOGLOBIN 11.8 g/dL (13.0-17.5); LYMPH # 1.3 x10^3/uL (1.0-4.8); LYMPH % 32 % (24-48); MEAN CORPUSCULAR HEMOGLOBIN 29 pg (25-35); MEAN CORPUSCULAR HGB CONC 32 g/dL (31-37); MEAN CORPUSCULAR VOLUME 91 fL (79-100); MONO # 0.5 x10^3/uL (0.0-1.1); MONO % 12 % (0-9); NEUT % 49 % (31-73); PLATELET COUNT 158 x10^3/uL (140-400); RED BLOOD COUNT 4.12 x10^6/uL (4.30-5.70); RED CELL DISTRIBUTION WIDTH 15.2 % (11.5-14.5); WHITE BLOOD COUNT 4.1 x10^3/uL (4.0-11.0)
[2020-02-17 06:11] LABS: ALBUMIN 2.7 g/dL (3.4-5.0); ALBUMIN/GLOBULIN RATIO 0.7 (1.0-1.7); CALCIUM 8.8 mg/dL (8.5-10.1); CREATININE 0.5 mg/dL (0.7-1.3); GFR 167.9; POTASSIUM 3.7 mmol/L (3.5-5.1); TOTAL BILIRUBIN 0.3 mg/dL (0.2-1.0); TOTAL PROTEIN 6.5 g/dL (6.4-8.2)
[2020-02-17 06:16] VITALS: BP 94/53
[2020-02-17] MEDS: LACTULOSE 20 GM/30 ML SOLUTION. PO SCH ×2 (08:19→20:37)
[2020-02-17] MEDS: DIVALPROEX 125 MG CAP.SPRINK PO SCH ×2 (08:19→20:36)
[2020-02-17] MEDS: levETIRAcetam 500 MG TABLET PO SCH ×2 (08:19→20:36)
[2020-02-17] MEDS: DOCUSATE SODIUM 100 MG CAPSULE PO SCH ×2 (08:20→20:35)
[2020-02-17] MEDS: NICOTINE 7MG PATCH. TD SCH (08:20)
[2020-02-17] MEDS: SENNOSIDES/DOCUSATE 8.6/50MG TABLET. PO SCH ×2 (08:20→20:36)
[2020-02-17] MEDS: CHOLECALCIFEROL (VITAMIN D3) 1,000 UNIT TABLET PO SCH (08:20)
[2020-02-17] MEDS: CLOPIDOGREL BISULFATE 75 MG TABLET PO SCH (08:20)
[2020-02-17] MEDS: MAGNESIUM OXIDE 400 MG TABLET PO SCH (08:20)
[2020-02-17] MEDS: PANTOPRAZOLE 40 MG TABLET. PO SCH (08:21)
[2020-02-17] MEDS: HALOPERIDOL 5 MG TABLET PO SCH ×3 (08:21→20:36)
[2020-02-17] MEDS: LACOSAMIDE 50 MG TABLET PO SCH ×2 (08:21→20:35)
[2020-02-17] MEDS: THIAMINE 100 MG TABLET. PO SCH (08:22)
[2020-02-17] MEDS: ASPIRIN CHEWABLE 81 MG TABLET. PO SCH (08:22)
[2020-02-17] MEDS: IV NORMAL SALINE 1,000ML 1,000 ML IV SCH ×3 (08:32→22:24)
[2020-02-17] MEDS: LORazepam 1 MG TABLET PO SCH ×3 (08:33→20:37)
--- NOTE | 2020-02-17 11:34 | NUR ---
Patient in bed with eyes closed during initial assessment but easily arouseable. Patient compliant with medication administration and assessment. Medications crushed in chocolate pudding without difficulty. Remains 1:1 for safety reasons. Will continue to monitor.
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
[2020-02-17] MEDS: traZODone 50 MG TABLET. PO SCH ×2 (12:17→16:36)
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
[2020-02-17] MEDS: hydrOXYzine HCL 25 MG TABLET PO PRN (16:35)
--- NOTE | 2020-02-17 17:01 | NUR ---
Patient became agitated and continually asking for a cigarette and trying to get up, pulling on gown and becoming aggressive. Mitts applied and PRN atarax given. Patient currently resting with eyes closed. Will continue 1:1 monitoring for patient safety.
--- NOTE | 2020-02-17 18:25 | NUR ---
Patient in dining room for dinner via w/c and ate 90% of dinner. Patient became agitated trying to get out of wheelchair. Began hitting staff and cussing. PRN zydis given. Will continue to monitor.
[2020-02-17] MEDS: MIRTAZAPINE 7.5 MG TABLET. PO SCH (20:36)
[2020-02-17] MEDS: ATORVASTATIN CALCIUM 20 MG TABLET PO SCH (20:36)
[2020-02-17] MEDS: traZODone 100 MG TABLET. PO SCH (20:36)
--- NOTE | 2020-02-17 22:13 | PDOC ---
Exam Note: Jay Note: Please also refer to the separate dictated note~for this date of service dictated separately.~Patient seen individually. Discussed the patient with Nursing staff reviewed the chart.~Reviewed interim history and current functioning. Reviewed vital signs,~Labs/ Radiology~and current medications noted below. Continue current treatment with the changes noted in the dictated addendum note Assessment: Vital Signs/I&O: Vital Signs Date Time Temp Pulse Resp B/P (MAP) Pulse Ox O2 Delivery O2 Flow Rate FiO2 02/17/20 06:16 97.8 72 14 94/53 (67) 92 02/13/20 16:14 Room Air I & O 02/16/20 02/16/20 02/17/20 15:00 23:00 07:00 Intake Total 600 ml 240 ml Output Total 1200 ml 1400 ml 1050 ml Balance -600 ml -1160 ml -1050 ml Labs: Laboratory Tests Test 02/17/20 05:50 02/17/20 11:42 White Blood Count 4.1 x10^3/uL (4.0-11.0) Red Blood Count 4.12 x10^6/uL (4.30-5.70) L Hemoglobin 11.8 g/dL (13.0-17.5) L Hematocrit 37.3 % (39.0-53.0) L Mean Corpuscular Volume 91 fL (79-100) Mean Corpuscular Hemoglobin 29 pg (25-35) Mean Corpuscular Hemoglobin Concent 32 g/dL (31-37) Red Cell Distribution Width 15.2 % (11.5-14.5) H Platelet Count 158 x10^3/uL (140-400) Neutrophils (%) (Auto) 49 % (31-73) Lymphocytes (%) (Auto) 32 % (24-48) Monocytes (%) (Auto) 12 % (0-9) H Eosinophils (%) (Auto) 6 % (0-3) H Basophils (%) (Auto) 1 % (0-3) Neutrophils # (Auto) 2.0 x10^3uL (1.8-7.7) Lymphocytes # (Auto) 1.3 x10^3/uL (1.0-4.8) Monocytes # (Auto) 0.5 x10^3/uL (0.0-1.1) Eosinophils # (Auto) 0.3 x10^3/uL (0.0-0.7) Basophils # (Auto) 0.0 x10^3/uL (0.0-0.2) Sodium Level 135 mmol/L (136-145) L Potassium Level 3.7 mmol/L (3.5-5.1) Chloride Level 104 mmol/L (98-107) Carbon Dioxide Level 26 mmol/L (21-32) Anion Gap 5 (6-14) L Blood Urea Nitrogen 8 mg/dL (8-26) Creatinine 0.5 mg/dL (0.7-1.3) L Estimated GFR (Cockcroft-Gault) 167.9 BUN/Creatinine Ratio 16 (6-20) Glucose Level 99 mg/dL (70-99) Calcium Level 8.8 mg/dL (8.5-10.1) Total Bilirubin 0.3 mg/dL (0.2-1.0) Aspartate Amino Transferase (AST) 22 U/L (15-37) Alanine Aminotransferase (ALT) 13 U/L (16-63) L Alkaline Phosphatase 88 U/L (46-116) Total Protein 6.5 g/dL (6.4-8.2) Albumin 2.7 g/dL (3.4-5.0) L Albumin/Globulin Ratio 0.7 (1.0-1.7) L Glucose (Fingerstick) 81 mg/dL (70-99) Current Medications: Meds: Current Medications Medications (Trade) Dose Ordered Sig/Yeny Route PRN Reason Start Time Stop Time Status Last Admin Dose Admin Trazodone HCl (Desyrel) 12.5 mg 0900,1300,1700 PO 02/17/20 13:00 02/17/20 16:36 Mirtazapine (Remeron) 7.5 mg QHS PO 02/17/20 21:00 02/17/20 20:36 I have reviewed the current psychotropics carefully including drug interactions. Risk benefit ratio favors no change other than as noted in my dictated progress note. Diagnosis: Problems: (1) Hallucinations (2) Impulse control disorder (3) Anxiety disorder (4) Psychotic disorder (5) Wernicke-Korsakoff syndrome (alcoholic) (6) Dementia, vascular, with depression (7) Dementia, vascular, with delusions (8) Major neurocognitive disorder due to Alzheimer's disease, with behavioral disturbance ELMA HURD MD February 17, 2020 22:13
--- NOTE | 2020-02-18 01:53 | NUR ---
Pt has been in bed tonight sleeping or resting quietly. He is well oriented but confused, he has been planning a house alliance party. Meds were taken crushed in pudding. Speech is quiet and difficult to understand. IV dislodged and dcd, po intake has been good today. No behaviors tonight, remains 1:1.
[2020-02-18 06:08] VITALS: BP 101/63
--- NOTE | 2020-02-18 07:36 | PDOC ---
Exam Note: Jay Note: This note is a late entry for 02/16/2020 covers elements not covered in my initial note. Subjective: The patient was seen face to face in the evening. Nursing report was with Sweetie COFFEY. Discussed the patient with nursing staff reviewed the chart. He did not sleep at all previous night. He remains on IV fluids, has a Betancourt in place. Ammonia is 60 and he is on lactulose. Review of Systems: Ambulation impaired. No CV, GI/, Pulmonary, Eye, ENT system symptoms on review. Mental Status Exam: Oriented to himself. Insight and judgment, recent and remote memory, attention and concentration, fund of knowledge is poor consistent with his diagnosis. Laboratory Data: Reviewed. 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 Anxiety disorder unspecified. Impulse control disorder unspecified. Rest unchanged. Plan: No change from initial note. He is on Haldol 10 mg t.i.d., somewhat oversedated from this and it is unclear if this is helping him behaviorally. We will reduce to 5 mg b.i.d. and 10 mg once a day which is a drop of 10 mg a day. Maintain Ativan 1 mg t.i.d. May reduce this gradually. Continue Lacosamide and Keppra for seizures, melatonin, thiamine, Zyprexa, trazodone p.r.n., hydroxyzine and Depakote along with scheduled trazodone. Assessment: Vital Signs/I&O: Vital Signs Date Time Temp Pulse Resp B/P (MAP) Pulse Ox O2 Delivery O2 Flow Rate FiO2 02/18/20 06:08 98.0 61 18 101/63 (76) 95 02/17/20 21:00 Room Air I & O 02/17/20 02/17/20 02/18/20 14:59 22:59 06:59 Intake Total 240 ml 620 ml Output Total 650 ml 850 ml Balance 240 ml -30 ml -850 ml Labs: Laboratory Tests Test 02/17/20 11:42 Glucose (Fingerstick) 81 mg/dL (70-99) Current Medications: Meds: Current Medications Medications (Trade) Dose Ordered Sig/Yeny Route PRN Reason Start Time Stop Time Status Last Admin Dose Admin Trazodone HCl (Desyrel) 12.5 mg 0900,1300,1700 PO 02/17/20 13:00 02/17/20 16:36 Mirtazapine (Remeron) 7.5 mg QHS PO 02/17/20 21:00 02/17/20 20:36 I have reviewed the current psychotropics carefully including drug interactions. Risk benefit ratio favors no change other than as noted in my dictated progress note. Diagnosis: Problems: (1) Hallucinations (2) Impulse control disorder (3) Anxiety disorder (4) Psychotic disorder (5) Wernicke-Korsakoff syndrome (alcoholic) (6) Dementia, vascular, with depression (7) Dementia, vascular, with delusions (8) Major neurocognitive disorder due to Alzheimer's disease, with behavioral disturbance ELMA HURD MD February 18, 2020 07:36
--- NOTE | 2020-02-18 07:54 | PDOC ---
Exam Note: Jay Note: This note is a late entry for 02/17/2020 covers elements not covered in my initial note. Subjective: The patient was seen face to face with the treatment team in the morning including Yasmeen Carrington, ramandeep Munson (nursing home social worker), Estephanie, Activity Therapy. Nursing report was with Edith COFFEY. Discussed the patient with nursing staff in the evening reviewed the chart. He slept 9-3/4 hours previous night which is an improvement. He sleeps off and on during the day. Appetite is 30%. He has been fidgety, restless, takes medications in Boost. He remains on IV fluids. In the evening he was more conversational. He was asking nursing staff for beer. Review of Systems: Ambulation impaired. No CV, GI/, Pulmonary, Eye, ENT system symptoms on review. Mental Status Exam: Oriented to himself. Insight and judgment, recent and remote memory, attention and concentration, fund of knowledge is poor consistent with his diagnosis. Laboratory Data: Reviewed. 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 Anxiety disorder unspecified. Impulse control disorder unspecified. Rest unchanged. Plan: No change from initial note. Haldol has been reduced from 30 mg a day down to 20 mg a day. We will increase the scheduled trazodone from 12.5 mg b.i.d. to 12.5 mg t.i.d. Start Remeron 7.5 mg h.s. Valproic acid level is therapeutic at 61. We will follow labs level. He is currently on Depakote and we will monitor ammonia level as well. Make further adjustments as clinically indicated. He is wanting cigarettes as well. Assessment: Vital Signs/I&O: Vital Signs Date Time Temp Pulse Resp B/P (MAP) Pulse Ox O2 Delivery O2 Flow Rate FiO2 02/18/20 07:52 98.3 95 02/18/20 06:08 61 18 101/63 (76) 02/17/20 21:00 Room Air I & O 02/17/20 02/17/20 02/18/20 15:00 23:00 07:00 Intake Total 240 ml 620 ml Output Total 650 ml 850 ml Balance 240 ml -30 ml -850 ml Labs: Laboratory Tests Test 02/17/20 11:42 Glucose (Fingerstick) 81 mg/dL (70-99) Current Medications: Meds: Current Medications Medications (Trade) Dose Ordered Sig/Yeny Route PRN Reason Start Time Stop Time Status Last Admin Dose Admin Trazodone HCl (Desyrel) 12.5 mg 0900,1300,1700 PO 02/17/20 13:00 02/17/20 16:36 Mirtazapine (Remeron) 7.5 mg QHS PO 02/17/20 21:00 02/17/20 20:36 I have reviewed the current psychotropics carefully including drug interactions. Risk benefit ratio favors no change other than as noted in my dictated progress note. Diagnosis: Problems: (1) Hallucinations (2) Impulse control disorder (3) Anxiety disorder (4) Psychotic disorder (5) Wernicke-Korsakoff syndrome (alcoholic) (6) Dementia, vascular, with depression (7) Dementia, vascular, with delusions (8) Major neurocognitive disorder due to Alzheimer's disease, with behavioral disturbance ELMA HURD MD February 18, 2020 07:54
[2020-02-18] MEDS: PANTOPRAZOLE 40 MG TABLET. PO SCH (08:48)
[2020-02-18] MEDS: traZODone 50 MG TABLET. PO SCH ×3 (08:48→17:20)
[2020-02-18] MEDS: ASPIRIN CHEWABLE 81 MG TABLET. PO SCH (08:48)
[2020-02-18] MEDS: DIVALPROEX 125 MG CAP.SPRINK PO SCH ×2 (08:48→19:34)
[2020-02-18] MEDS: MAGNESIUM OXIDE 400 MG TABLET PO SCH (08:48)
[2020-02-18] MEDS: CLOPIDOGREL BISULFATE 75 MG TABLET PO SCH (08:48)
[2020-02-18] MEDS: levETIRAcetam 500 MG TABLET PO SCH ×2 (08:48→19:36)
[2020-02-18] MEDS: CHOLECALCIFEROL (VITAMIN D3) 1,000 UNIT TABLET PO SCH (08:49)
[2020-02-18] MEDS: HALOPERIDOL 5 MG TABLET PO SCH ×3 (08:49→19:35)
[2020-02-18] MEDS: DOCUSATE SODIUM 100 MG CAPSULE PO SCH ×2 (08:49→19:36)
[2020-02-18] MEDS: LORazepam 1 MG TABLET PO SCH ×3 (08:49→19:36)
[2020-02-18] MEDS: SENNOSIDES/DOCUSATE 8.6/50MG TABLET. PO SCH ×2 (08:49→19:37)
[2020-02-18] MEDS: LACTULOSE 20 GM/30 ML SOLUTION. PO SCH ×2 (08:50→19:34)
[2020-02-18] MEDS: NICOTINE 7MG PATCH. TD SCH (08:51)
[2020-02-18] MEDS: THIAMINE 100 MG TABLET. PO SCH (08:58)
[2020-02-18] MEDS: LACOSAMIDE 50 MG TABLET PO SCH ×2 (08:58→19:37)
--- NOTE | 2020-02-18 09:57 | NUR ---
Faxed clinicals to Violet at [facility], awaiting outcome. Addendum: 02/18/20 at 1644 by CHERYL SANTIAGO Received fax notification that Tuan has been approved thru 02/21/20, next review due at that time.
--- NOTE | 2020-02-18 10:28 | NUR ---
Patient is located in patient room at time of assessment and medication administration. Patient is delusional, lethargic, and unable to answer question appropriately. Patient is having more difficulty swallowing. Patient is holding food and drink in mouth and has to be prompted to swallow. Patient is compliant with assessment and medications crushed in chocolate pudding. Speech evaluation ordered. Hospice referral sent. Patient continues to require 1:1 observation for high fall risk. Will continue to monitor.
[2020-02-18 15:13] VITALS: BP 98/61
[2020-02-18] MEDS: MIRTAZAPINE 7.5 MG TABLET. PO SCH (19:35)
[2020-02-18] MEDS: ATORVASTATIN CALCIUM 20 MG TABLET PO SCH (19:35)
[2020-02-18] MEDS: traZODone 100 MG TABLET. PO SCH (19:36)
--- NOTE | 2020-02-18 21:55 | PDOC ---
Exam Note: Jay Note: Please also refer to the separate dictated note~for this date of service dictated separately.~Patient seen individually. Discussed the patient with Nursing staff reviewed the chart.~Reviewed interim history and current functioning. Reviewed vital signs,~Labs/ Radiology~and current medications noted below. Continue current treatment with the changes noted in the dictated addendum note Assessment: Vital Signs/I&O: Vital Signs Date Time Temp Pulse Resp B/P (MAP) Pulse Ox O2 Delivery O2 Flow Rate FiO2 02/18/20 20:54 98.3 91 02/18/20 15:13 86 16 98/61 (73) Room Air I & O 02/17/20 02/17/20 02/18/20 15:00 23:00 07:00 Intake Total 240 ml 620 ml Output Total 650 ml 850 ml Balance 240 ml -30 ml -850 ml Current Medications: Meds: Current Medications Medications (Trade) Dose Ordered Sig/Yeny Route PRN Reason Start Time Stop Time Status Last Admin Dose Admin Lorazepam (Ativan) 1 mg BID PO 02/18/20 21:00 02/18/20 19:36 I have reviewed the current psychotropics carefully including drug interactions. Risk benefit ratio favors no change other than as noted in my dictated progress note. Diagnosis: Problems: (1) Hallucinations (2) Impulse control disorder (3) Anxiety disorder (4) Psychotic disorder (5) Wernicke-Korsakoff syndrome (alcoholic) (6) Dementia, vascular, with depression (7) Dementia, vascular, with delusions (8) Major neurocognitive disorder due to Alzheimer's disease, with behavioral disturbance ELMA HURD MD February 18, 2020 21:55
--- NOTE | 2020-02-18 23:19 | NUR ---
Nursing Note Pt in bed drowsy takes meds crushed in pudding, is impulsive and confused, poor judgement and insight. 1-1 observation for safety.
[2020-02-19 06:17] VITALS: BP 102/64
[2020-02-19] MEDS: SENNOSIDES/DOCUSATE 8.6/50MG TABLET. PO SCH ×2 (08:29→20:00)
[2020-02-19] MEDS: LACTULOSE 20 GM/30 ML SOLUTION. PO SCH ×2 (08:29→19:59)
[2020-02-19] MEDS: LACOSAMIDE 50 MG TABLET PO SCH ×2 (08:29→20:00)
[2020-02-19] MEDS: THIAMINE 100 MG TABLET. PO SCH (08:29)
[2020-02-19] MEDS: MAGNESIUM OXIDE 400 MG TABLET PO SCH (08:30)
[2020-02-19] MEDS: NICOTINE 7MG PATCH. TD SCH (08:30)
[2020-02-19] MEDS: CHOLECALCIFEROL (VITAMIN D3) 1,000 UNIT TABLET PO SCH (08:30)
[2020-02-19] MEDS: traZODone 50 MG TABLET. PO SCH ×3 (08:30→17:13)
[2020-02-19] MEDS: ASPIRIN CHEWABLE 81 MG TABLET. PO SCH (08:30)
[2020-02-19] MEDS: PANTOPRAZOLE 40 MG TABLET. PO SCH (08:30)
[2020-02-19] MEDS: CLOPIDOGREL BISULFATE 75 MG TABLET PO SCH (08:30)
[2020-02-19] MEDS: DOCUSATE SODIUM 100 MG CAPSULE PO SCH ×2 (08:30→19:58)
[2020-02-19] MEDS: HALOPERIDOL 5 MG TABLET PO SCH ×3 (08:30→19:59)
[2020-02-19] MEDS: DIVALPROEX 125 MG CAP.SPRINK PO SCH ×2 (08:30→19:59)
[2020-02-19] MEDS: levETIRAcetam 500 MG TABLET PO SCH ×2 (08:30→19:59)
[2020-02-19] MEDS: LORazepam 1 MG TABLET PO SCH ×2 (08:30→19:59)
[2020-02-19 08:36] LABS: BASO % 1 % (0-3); EOS # 0.3 x10^3/uL (0.0-0.7); EOS % 6 % (0-3); HEMATOCRIT 36.4 % (39.0-53.0); HEMOGLOBIN 11.9 g/dL (13.0-17.5); LYMPH # 1.7 x10^3/uL (1.0-4.8); LYMPH % 35 % (24-48); MEAN CORPUSCULAR HEMOGLOBIN 29 pg (25-35); MEAN CORPUSCULAR HGB CONC 33 g/dL (31-37); MEAN CORPUSCULAR VOLUME 88 fL (79-100); MONO # 0.7 x10^3/uL (0.0-1.1); MONO % 14 % (0-9); NEUT # 2.1 x10^3uL (1.8-7.7); NEUT % 44 % (31-73); PLATELET COUNT 166 x10^3/uL (140-400); RED BLOOD COUNT 4.11 x10^6/uL (4.30-5.70); RED CELL DISTRIBUTION WIDTH 14.4 % (11.5-14.5); WHITE BLOOD COUNT 4.7 x10^3/uL (4.0-11.0)
[2020-02-19 08:55] LABS: ALBUMIN/GLOBULIN RATIO 0.8 (1.0-1.7); CALCIUM 9.1 mg/dL (8.5-10.1); CREATININE 0.6 mg/dL (0.7-1.3); GFR 136.1; POTASSIUM 3.9 mmol/L (3.5-5.1); TOTAL BILIRUBIN 0.3 mg/dL (0.2-1.0); TOTAL PROTEIN 6.9 g/dL (6.4-8.2)
--- NOTE | 2020-02-19 08:59 | PDOC ---
Exam Note: Jay Note: This note is a late entry for 02/18/2020 covers elements not covered in my initial note. Subjective: The patient was seen face to face in the evening of 02/18/2020. Nursing report was with Gill COFFEY. Discussed the patient with nursing staff in the evening reviewed the chart. He slept 5-1/2 hours previous night. He did eat breakfast, slept through lunch, needs to be suctioned at night. Review of Systems: Ambulation impaired. No CV, GI/, Pulmonary, Eye, ENT system symptoms on review. Reliability poor. Mental Status Exam: Oriented to himself. Insight and judgment, recent and remote memory, attention and concentration, fund of knowledge is poor consistent with his diagnosis. Laboratory Data: Reviewed. Sodium is 141. 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 Anxiety disorder unspecified. Impulse control disorder unspecified. Rest unchanged. Plan: No change from initial note but he is on Haldol 10 mg t.i.d. and we are gradually reducing it, Ativan is 1 mg t.i.d. We will reduce it by 0.5 mg a day for two days, then down another 0.5 mg and then so on. That should help some of his aspiration issues and dysphagia as well. Continue rest of the psychotropics unchanged. Assessment: Vital Signs/I&O: Vital Signs Date Time Temp Pulse Resp B/P (MAP) Pulse Ox O2 Delivery O2 Flow Rate FiO2 02/19/20 08:38 97.9 97 02/19/20 06:17 70 18 102/64 (77) 02/18/20 15:13 Room Air I & O 02/18/20 02/18/20 02/19/20 14:59 22:59 06:59 Intake Total 360 ml 480 ml Output Total 400 ml 375 ml Balance 360 ml 80 ml -375 ml Labs: Laboratory Tests Test 02/19/20 06:50 White Blood Count 4.7 x10^3/uL (4.0-11.0) Red Blood Count 4.11 x10^6/uL (4.30-5.70) L Hemoglobin 11.9 g/dL (13.0-17.5) L Hematocrit 36.4 % (39.0-53.0) L Mean Corpuscular Volume 88 fL (79-100) Mean Corpuscular Hemoglobin 29 pg (25-35) Mean Corpuscular Hemoglobin Concent 33 g/dL (31-37) Red Cell Distribution Width 14.4 % (11.5-14.5) Platelet Count 166 x10^3/uL (140-400) Neutrophils (%) (Auto) 44 % (31-73) Lymphocytes (%) (Auto) 35 % (24-48) Monocytes (%) (Auto) 14 % (0-9) H Eosinophils (%) (Auto) 6 % (0-3) H Basophils (%) (Auto) 1 % (0-3) Neutrophils # (Auto) 2.1 x10^3uL (1.8-7.7) Lymphocytes # (Auto) 1.7 x10^3/uL (1.0-4.8) Monocytes # (Auto) 0.7 x10^3/uL (0.0-1.1) Eosinophils # (Auto) 0.3 x10^3/uL (0.0-0.7) Basophils # (Auto) 0.0 x10^3/uL (0.0-0.2) Current Medications: Meds: Current Medications Medications (Trade) Dose Ordered Sig/Yeny Route PRN Reason Start Time Stop Time Status Last Admin Dose Admin Lorazepam (Ativan) 1 mg BID PO 02/18/20 21:00 02/19/20 08:30 I have reviewed the current psychotropics carefully including drug interactions. Risk benefit ratio favors no change other than as noted in my dictated progress note. Diagnosis: Problems: (1) Hallucinations (2) Impulse control disorder (3) Anxiety disorder (4) Psychotic disorder (5) Wernicke-Korsakoff syndrome (alcoholic) (6) Dementia, vascular, with depression (7) Dementia, vascular, with delusions (8) Major neurocognitive disorder due to Alzheimer's disease, with behavioral disturbance ELMA HURD MD February 19, 2020 08:59
--- NOTE | 2020-02-19 09:23 | NUR ---
Patient compliant with assessment and medication. Patient willing to tell staff his minimal needs at a low tone. Patient appears to respond to [place] better. Patient appears calmer this morning. Patient taken to dining room for meals to establish a routine.
[2020-02-19 15:31] VITALS: BP 91/59
[2020-02-19] MEDS ORDERED: LORazepam 0.5 MG TABLET PO SCH (16:00)
[2020-02-19] MEDS: ATORVASTATIN CALCIUM 20 MG TABLET PO SCH (19:59)
[2020-02-19] MEDS: traZODone 100 MG TABLET. PO SCH (19:59)
[2020-02-19] MEDS: MIRTAZAPINE 7.5 MG TABLET. PO SCH (20:00)
--- NOTE | 2020-02-19 22:02 | PDOC ---
Exam Note: Jay Note: Please also refer to the separate dictated note~for this date of service dictated separately.~Patient seen individually. Discussed the patient with Nursing staff reviewed the chart.~Reviewed interim history and current functioning. Reviewed vital signs,~Labs/ Radiology~and current medications noted below. Continue current treatment with the changes noted in the dictated addendum note Assessment: Vital Signs/I&O: Vital Signs Date Time Temp Pulse Resp B/P (MAP) Pulse Ox O2 Delivery O2 Flow Rate FiO2 02/19/20 21:02 98.6 95 02/19/20 15:31 76 18 91/59 (70) 02/18/20 15:13 Room Air I & O 02/18/20 02/18/20 02/19/20 14:59 22:59 06:59 Intake Total 360 ml 480 ml Output Total 400 ml 375 ml Balance 360 ml 80 ml -375 ml Labs: Laboratory Tests Test 02/19/20 06:50 White Blood Count 4.7 x10^3/uL (4.0-11.0) Red Blood Count 4.11 x10^6/uL (4.30-5.70) L Hemoglobin 11.9 g/dL (13.0-17.5) L Hematocrit 36.4 % (39.0-53.0) L Mean Corpuscular Volume 88 fL (79-100) Mean Corpuscular Hemoglobin 29 pg (25-35) Mean Corpuscular Hemoglobin Concent 33 g/dL (31-37) Red Cell Distribution Width 14.4 % (11.5-14.5) Platelet Count 166 x10^3/uL (140-400) Neutrophils (%) (Auto) 44 % (31-73) Lymphocytes (%) (Auto) 35 % (24-48) Monocytes (%) (Auto) 14 % (0-9) H Eosinophils (%) (Auto) 6 % (0-3) H Basophils (%) (Auto) 1 % (0-3) Neutrophils # (Auto) 2.1 x10^3uL (1.8-7.7) Lymphocytes # (Auto) 1.7 x10^3/uL (1.0-4.8) Monocytes # (Auto) 0.7 x10^3/uL (0.0-1.1) Eosinophils # (Auto) 0.3 x10^3/uL (0.0-0.7) Basophils # (Auto) 0.0 x10^3/uL (0.0-0.2) Sodium Level 139 mmol/L (136-145) Potassium Level 3.9 mmol/L (3.5-5.1) Chloride Level 103 mmol/L (98-107) Carbon Dioxide Level 31 mmol/L (21-32) Anion Gap 5 (6-14) L Blood Urea Nitrogen 12 mg/dL (8-26) Creatinine 0.6 mg/dL (0.7-1.3) L Estimated GFR (Cockcroft-Gault) 136.1 BUN/Creatinine Ratio 20 (6-20) Glucose Level 92 mg/dL (70-99) Calcium Level 9.1 mg/dL (8.5-10.1) Total Bilirubin 0.3 mg/dL (0.2-1.0) Aspartate Amino Transferase (AST) 16 U/L (15-37) Alanine Aminotransferase (ALT) 15 U/L (16-63) L Alkaline Phosphatase 95 U/L (46-116) Total Protein 6.9 g/dL (6.4-8.2) Albumin 3.0 g/dL (3.4-5.0) L Albumin/Globulin Ratio 0.8 (1.0-1.7) L Current Medications: Meds: Current Medications Medications (Trade) Dose Ordered Sig/Yeny Route PRN Reason Start Time Stop Time Status Last Admin Dose Admin Lorazepam (Ativan) 0.5 mg DAILY16 PO 02/19/20 16:00 02/20/20 05:00 02/19/20 15:15 I have reviewed the current psychotropics carefully including drug interactions. Risk benefit ratio favors no change other than as noted in my dictated progress note. Diagnosis: Problems: (1) Hallucinations (2) Impulse control disorder (3) Anxiety disorder (4) Psychotic disorder (5) Wernicke-Korsakoff syndrome (alcoholic) (6) Dementia, vascular, with depression (7) Dementia, vascular, with delusions (8) Major neurocognitive disorder due to Alzheimer's disease, with behavioral disturbance ELMA HURD MD February 19, 2020 22:02
--- NOTE | 2020-02-19 22:58 | NUR ---
Pt continues to be a 1:1 for safety. Pt restless in bed. Compliant with crushed medications. Pt drowsy and hallucinating.
[2020-02-20] MEDS: hydrOXYzine HCL 25 MG TABLET PO PRN (04:18)
[2020-02-20 06:02] VITALS: BP 96/64
[2020-02-20] MEDS: LORazepam 1 MG TABLET PO SCH ×2 (08:08→19:49)
[2020-02-20] MEDS: PANTOPRAZOLE 40 MG TABLET. PO SCH (08:08)
[2020-02-20] MEDS: DIVALPROEX 125 MG CAP.SPRINK PO SCH ×2 (08:08→19:50)
[2020-02-20] MEDS: ASPIRIN CHEWABLE 81 MG TABLET. PO SCH (08:09)
[2020-02-20] MEDS: traZODone 50 MG TABLET. PO SCH ×4 (08:09→17:00)
[2020-02-20] MEDS: LACOSAMIDE 50 MG TABLET PO SCH ×2 (08:10→19:49)
[2020-02-20] MEDS: SENNOSIDES/DOCUSATE 8.6/50MG TABLET. PO SCH ×2 (08:10→19:49)
[2020-02-20] MEDS: levETIRAcetam 500 MG TABLET PO SCH ×2 (08:10→19:50)
[2020-02-20] MEDS: HALOPERIDOL 5 MG TABLET PO SCH ×3 (08:10→19:49)
[2020-02-20] MEDS: DOCUSATE SODIUM 100 MG CAPSULE PO SCH ×2 (08:10→19:50)
[2020-02-20] MEDS: MAGNESIUM OXIDE 400 MG TABLET PO SCH (08:11)
[2020-02-20] MEDS: THIAMINE 100 MG TABLET. PO SCH (08:11)
[2020-02-20] MEDS: CLOPIDOGREL BISULFATE 75 MG TABLET PO SCH (08:11)
[2020-02-20] MEDS: CHOLECALCIFEROL (VITAMIN D3) 1,000 UNIT TABLET PO SCH (08:11)
[2020-02-20] MEDS: NICOTINE 7MG PATCH. TD SCH (08:11)
[2020-02-20] MEDS: LACTULOSE 20 GM/30 ML SOLUTION. PO SCH ×2 (08:11→19:49)
[2020-02-20 16:29] VITALS: BP 118/78
[2020-02-20] MEDS: MIRTAZAPINE 7.5 MG TABLET. PO SCH (19:49)
[2020-02-20] MEDS: ATORVASTATIN CALCIUM 20 MG TABLET PO SCH (19:49)
[2020-02-20] MEDS: traZODone 100 MG TABLET. PO SCH (19:50)
--- NOTE | 2020-02-20 22:17 | PDOC ---
Exam Note: Jay Note: Please also refer to the separate dictated note~for this date of service dictated separately.~Patient seen individually. Discussed the patient with Nursing staff reviewed the chart.~Reviewed interim history and current functioning. Reviewed vital signs,~Labs/ Radiology~and current medications noted below. Continue current treatment with the changes noted in the dictated addendum note Assessment: Vital Signs/I&O: Vital Signs Date Time Temp Pulse Resp B/P (MAP) Pulse Ox O2 Delivery O2 Flow Rate FiO2 02/20/20 21:10 97.6 02/20/20 16:29 70 118/78 (91) 95 02/20/20 06:02 16 02/18/20 15:13 Room Air I & O 02/19/20 02/19/20 02/20/20 15:00 23:00 07:00 Intake Total 480 ml 580 ml Output Total 625 ml 950 ml Balance 480 ml -45 ml -950 ml Current Medications: I have reviewed the current psychotropics carefully including drug interactions. Risk benefit ratio favors no change other than as noted in my dictated progress note. Diagnosis: Problems: (1) Hallucinations (2) Impulse control disorder (3) Anxiety disorder (4) Psychotic disorder (5) Wernicke-Korsakoff syndrome (alcoholic) (6) Dementia, vascular, with depression (7) Dementia, vascular, with delusions (8) Major neurocognitive disorder due to Alzheimer's disease, with behavioral disturbance ELMA HURD MD February 20, 2020 22:17
--- NOTE | 2020-02-20 22:33 | NUR ---
Pt located in his room this evening, awake in bed. Pt continues to have a 1:1 for safety. Pt calm, pleasant and interactive this evening. Pt stated he was hungry. Dinner tray reheated and fed to pt. Pt consumed 100% of meal. Compliant with crushed medications. Pt continues to be slightly restless but improved from previous evenings.
[2020-02-21] MEDS: traZODone 100 MG TABLET. PO PRN (01:22)
[2020-02-21 06:24] VITALS: BP 96/62
--- NOTE | 2020-02-21 08:12 | PDOC ---
Exam Note: Jay Note: This note is a late entry for 02/19/2020 covers elements not covered in my initial note. Subjective: The patient was seen face to face in the evening of 02/19/2020. Nursing report was with Kris COFFEY. Discussed the patient with nursing staff in the evening reviewed the chart. He is doing better. He slept 10-1/4 hours previous night. Review of Systems: Ambulation impaired. No CV, GI/, Pulmonary, Eye, ENT system symptoms on review. Reliability poor. Mental Status Exam: Oriented to himself. Insight and judgment, recent and remote memory, attention and concentration, fund of knowledge is poor consistent with his diagnosis. Laboratory Data: Reviewed. 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 Anxiety disorder unspecified. Im pulse control disorder unspecified. Rest unchanged. Plan: No change from initial note. The patient is currently on Ativan 1 mg a.m. and 0.5 mg noon and 1 mg p.m. We will reduce to 0.5 mg twice a day and 1 mg in the evening. Continue rest unchanged. Valproic acid level is therapeutic. Assessment: Vital Signs/I&O: Vital Signs Date Time Temp Pulse Resp B/P (MAP) Pulse Ox O2 Delivery O2 Flow Rate FiO2 02/21/20 06:24 97.8 82 18 96/62 (73) 92 02/18/20 15:13 Room Air I & O 02/20/20 02/20/20 02/21/20 15:00 23:00 07:00 Intake Total 360 ml 540 ml Output Total 750 ml 250 ml Balance 360 ml -210 ml -250 ml Current Medications: I have reviewed the current psychotropics carefully including drug interactions. Risk benefit ratio favors no change other than as noted in my dictated progress note. Diagnosis: Problems: (1) Hallucinations (2) Impulse control disorder (3) Anxiety disorder (4) Psychotic disorder (5) Wernicke-Korsakoff syndrome (alcoholic) (6) Dementia, vascular, with depression (7) Dementia, vascular, with delusions (8) Major neurocognitive disorder due to Alzheimer's disease, with behavioral disturbance ELMA HURD MD Feb 21, 2020 08:12
[2020-02-21] MEDS: NICOTINE 7MG PATCH. TD SCH (08:29)
[2020-02-21] MEDS: CHOLECALCIFEROL (VITAMIN D3) 1,000 UNIT TABLET PO SCH (08:30)
[2020-02-21] MEDS: CLOPIDOGREL BISULFATE 75 MG TABLET PO SCH (08:30)
[2020-02-21] MEDS: ASPIRIN CHEWABLE 81 MG TABLET. PO SCH (08:30)
[2020-02-21] MEDS: LORazepam 1 MG TABLET PO SCH ×2 (08:30→19:54)
[2020-02-21] MEDS: SENNOSIDES/DOCUSATE 8.6/50MG TABLET. PO SCH ×2 (08:30→19:52)
[2020-02-21] MEDS: LACTULOSE 20 GM/30 ML SOLUTION. PO SCH ×2 (08:30→19:52)
[2020-02-21] MEDS: LACOSAMIDE 50 MG TABLET PO SCH ×2 (08:30→19:54)
[2020-02-21] MEDS: levETIRAcetam 500 MG TABLET PO SCH ×2 (08:30→19:52)
[2020-02-21] MEDS: DOCUSATE SODIUM 100 MG CAPSULE PO SCH ×2 (08:30→19:54)
[2020-02-21] MEDS: DIVALPROEX 125 MG CAP.SPRINK PO SCH ×2 (08:30→19:52)
[2020-02-21] MEDS: HALOPERIDOL 5 MG TABLET PO SCH ×3 (08:31→19:52)
[2020-02-21] MEDS: PANTOPRAZOLE 40 MG TABLET. PO SCH (08:31)
[2020-02-21] MEDS: THIAMINE 100 MG TABLET. PO SCH (08:31)
[2020-02-21] MEDS: MAGNESIUM OXIDE 400 MG TABLET PO SCH (08:31)
[2020-02-21] MEDS ORDERED: traZODone 50 MG TABLET. PO ONE (09:00)
[2020-02-21 10:00] LABS: BASO % 1 % (0-3); EOS # 0.3 x10^3/uL (0.0-0.7); EOS % 5 % (0-3); HEMATOCRIT 39.7 % (39.0-53.0); LYMPH # 1.6 x10^3/uL (1.0-4.8); LYMPH % 27 % (24-48); MEAN CORPUSCULAR HEMOGLOBIN 29 pg (25-35); MEAN CORPUSCULAR HGB CONC 33 g/dL (31-37); MEAN CORPUSCULAR VOLUME 87 fL (79-100); MONO # 0.4 x10^3/uL (0.0-1.1); MONO % 7 % (0-9); NEUT # 3.6 x10^3uL (1.8-7.7); NEUT % 60 % (31-73); PLATELET COUNT 166 x10^3/uL (140-400); RED BLOOD COUNT 4.54 x10^6/uL (4.30-5.70); RED CELL DISTRIBUTION WIDTH 14.9 % (11.5-14.5); WHITE BLOOD COUNT 5.9 x10^3/uL (4.0-11.0)
[2020-02-21] MEDS ORDERED: OMEP20CA16 PO (10:03)
[2020-02-21 10:22] LABS: ALBUMIN 3.3 g/dL (3.4-5.0); ALBUMIN/GLOBULIN RATIO 0.7 (1.0-1.7); CALCIUM 9.5 mg/dL (8.5-10.1); CREATININE 0.7 mg/dL (0.7-1.3); GFR 113.9; POTASSIUM 4.4 mmol/L (3.5-5.1); TOTAL BILIRUBIN 0.3 mg/dL (0.2-1.0); TOTAL PROTEIN 7.9 g/dL (6.4-8.2)
--- NOTE | 2020-02-21 10:26 | NUR ---
Concurrent review completed, faxed clinicals to Violet at [facility] for review. Awaiting outcome on coverage.
[2020-02-21] MEDS: traZODone 50 MG TABLET. PO SCH ×2 (13:57→16:35)
[2020-02-21 15:47] VITALS: BP 108/65
--- NOTE | 2020-02-21 16:19 | NUR ---
Patient has been calm up until this evening, up in broda most of day. Compliant with medications. Betancourt in place. Becoming restless now, wanting to get up but patient is a fall risk. Patient is supposed to be wearing a helmet when up however patient is not compliant with wearing helmet. LALITATM.
[2020-02-21] MEDS: MIRTAZAPINE 7.5 MG TABLET. PO SCH (19:52)
[2020-02-21] MEDS: ATORVASTATIN CALCIUM 20 MG TABLET PO SCH (19:52)
[2020-02-21] MEDS: traZODone 100 MG TABLET. PO SCH (19:55)
--- NOTE | 2020-02-21 21:58 | NUR ---
Pt located in hallway this evening with 1:1 sitter next to him. Pt restless, repeatedly attempting to remove his shirt. Pt interactive and cooperative with this RN. Compliant with crushed medications. Pt currently laying in bed with 1:1 sitter at bedside.
--- NOTE | 2020-02-21 22:14 | PDOC ---
Exam Note: Jay Note: Please also refer to the separate dictated note~for this date of service dictated separately.~Patient seen individually. Discussed the patient with Nursing staff reviewed the chart.~Reviewed interim history and current functioning. Reviewed vital signs,~Labs/ Radiology~and current medications noted below. Continue current treatment with the changes noted in the dictated addendum note Assessment: Vital Signs/I&O: Vital Signs Date Time Temp Pulse Resp B/P (MAP) Pulse Ox O2 Delivery O2 Flow Rate FiO2 02/21/20 18:36 98.5 02/21/20 15:47 79 16 108/65 (79) 92 02/18/20 15:13 Room Air I & O 02/20/20 02/20/20 02/21/20 15:00 23:00 07:00 Intake Total 360 ml 540 ml Output Total 750 ml 250 ml Balance 360 ml -210 ml -250 ml Labs: Laboratory Tests Test 02/21/20 09:43 White Blood Count 5.9 x10^3/uL (4.0-11.0) Red Blood Count 4.54 x10^6/uL (4.30-5.70) Hemoglobin 13.0 g/dL (13.0-17.5) Hematocrit 39.7 % (39.0-53.0) Mean Corpuscular Volume 87 fL (79-100) Mean Corpuscular Hemoglobin 29 pg (25-35) Mean Corpuscular Hemoglobin Concent 33 g/dL (31-37) Red Cell Distribution Width 14.9 % (11.5-14.5) H Platelet Count 166 x10^3/uL (140-400) Neutrophils (%) (Auto) 60 % (31-73) Lymphocytes (%) (Auto) 27 % (24-48) Monocytes (%) (Auto) 7 % (0-9) Eosinophils (%) (Auto) 5 % (0-3) H Basophils (%) (Auto) 1 % (0-3) Neutrophils # (Auto) 3.6 x10^3uL (1.8-7.7) Lymphocytes # (Auto) 1.6 x10^3/uL (1.0-4.8) Monocytes # (Auto) 0.4 x10^3/uL (0.0-1.1) Eosinophils # (Auto) 0.3 x10^3/uL (0.0-0.7) Basophils # (Auto) 0.0 x10^3/uL (0.0-0.2) Sodium Level 138 mmol/L (136-145) Potassium Level 4.4 mmol/L (3.5-5.1) Chloride Level 102 mmol/L (98-107) Carbon Dioxide Level 29 mmol/L (21-32) Anion Gap 7 (6-14) Blood Urea Nitrogen 18 mg/dL (8-26) Creatinine 0.7 mg/dL (0.7-1.3) Estimated GFR (Cockcroft-Gault) 113.9 BUN/Creatinine Ratio 26 (6-20) H Glucose Level 100 mg/dL (70-99) H Calcium Level 9.5 mg/dL (8.5-10.1) Total Bilirubin 0.3 mg/dL (0.2-1.0) Aspartate Amino Transferase (AST) 18 U/L (15-37) Alanine Aminotransferase (ALT) 14 U/L (16-63) L Alkaline Phosphatase 105 U/L (46-116) Total Protein 7.9 g/dL (6.4-8.2) Albumin 3.3 g/dL (3.4-5.0) L Albumin/Globulin Ratio 0.7 (1.0-1.7) L Current Medications: I have reviewed the current psychotropics carefully including drug interactions. Risk benefit ratio favors no change other than as noted in my dictated progress note. Diagnosis: Problems: (1) Hallucinations (2) Impulse control disorder (3) Anxiety disorder (4) Psychotic disorder (5) Wernicke-Korsakoff syndrome (alcoholic) (6) Dementia, vascular, with depression (7) Dementia, vascular, with delusions (8) Major neurocognitive disorder due to Alzheimer's disease, with behavioral disturbance ELMA HURD MD Feb 21, 2020 22:14
[2020-02-22] MEDS: traZODone 100 MG TABLET. PO PRN (01:04)
--- NOTE | 2020-02-22 01:30 | NUR ---
Pt restless and attempting to pull at chahal. Mitts placed and weighted blanket put on pt. Repeat Trazodone administered.
[2020-02-22 06:40] VITALS: BP 100/64
--- NOTE | 2020-02-22 06:55 | PDOC ---
Exam Note: Jay Note: This note is a late entry for 02/20/2020 covers elements not covered in my initial note. Subjective: The patient was seen face to face in the evening of 02/20/2020. Nursing report was with Kris COFFEY. Discussed the patient with nursing staff in the evening reviewed the chart. He is doing better. He slept 1-3/4 hours previous night. He sleeps and naps off and on during the day making up for this. He has been disorganized, somewhat calmer today. Review of Systems: Ambulation impaired. No CV, GI/, Pulmonary, Eye, ENT system symptoms on review. Mental Status Exam: Oriented to himself. Insight and judgment, recent and remote memory, attention and concentration, fund of knowledge is poor consistent with his diagnosis. Laboratory Data: Reviewed. 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 Anxiety disorder unspecified. Impulse control disorder unspecified. Rest unchanged. Plan: No change from initial note. We will increase the 0900 trazodone from 12.5 mg to 25 mg. Continue rest of the psychotropics unchanged from initial note. Assessment: Vital Signs/I&O: Vital Signs Date Time Temp Pulse Resp B/P (MAP) Pulse Ox O2 Delivery O2 Flow Rate FiO2 02/22/20 06:40 97.2 73 16 100/64 (76) 93 02/18/20 15:13 Room Air I & O 02/21/20 02/21/20 02/22/20 15:00 23:00 07:00 Intake Total 600 ml 180 ml Output Total 350 ml 1300 ml Balance 600 ml -170 ml -1300 ml Labs: Laboratory Tests Test 02/21/20 09:43 White Blood Count 5.9 x10^3/uL (4.0-11.0) Red Blood Count 4.54 x10^6/uL (4.30-5.70) Hemoglobin 13.0 g/dL (13.0-17.5) Hematocrit 39.7 % (39.0-53.0) Mean Corpuscular Volume 87 fL (79-100) Mean Corpuscular Hemoglobin 29 pg (25-35) Mean Corpuscular Hemoglobin Concent 33 g/dL (31-37) Red Cell Distribution Width 14.9 % (11.5-14.5) H Platelet Count 166 x10^3/uL (140-400) Neutrophils (%) (Auto) 60 % (31-73) Lymphocytes (%) (Auto) 27 % (24-48) Monocytes (%) (Auto) 7 % (0-9) Eosinophils (%) (Auto) 5 % (0-3) H Basophils (%) (Auto) 1 % (0-3) Neutrophils # (Auto) 3.6 x10^3uL (1.8-7.7) Lymphocytes # (Auto) 1.6 x10^3/uL (1.0-4.8) Monocytes # (Auto) 0.4 x10^3/uL (0.0-1.1) Eosinophils # (Auto) 0.3 x10^3/uL (0.0-0.7) Basophils # (Auto) 0.0 x10^3/uL (0.0-0.2) Sodium Level 138 mmol/L (136-145) Potassium Level 4.4 mmol/L (3.5-5.1) Chloride Level 102 mmol/L (98-107) Carbon Dioxide Level 29 mmol/L (21-32) Anion Gap 7 (6-14) Blood Urea Nitrogen 18 mg/dL (8-26) Creatinine 0.7 mg/dL (0.7-1.3) Estimated GFR (Cockcroft-Gault) 113.9 BUN/Creatinine Ratio 26 (6-20) H Glucose Level 100 mg/dL (70-99) H Calcium Level 9.5 mg/dL (8.5-10.1) Total Bilirubin 0.3 mg/dL (0.2-1.0) Aspartate Amino Transferase (AST) 18 U/L (15-37) Alanine Aminotransferase (ALT) 14 U/L (16-63) L Alkaline Phosphatase 105 U/L (46-116) Total Protein 7.9 g/dL (6.4-8.2) Albumin 3.3 g/dL (3.4-5.0) L Albumin/Globulin Ratio 0.7 (1.0-1.7) L Current Medications: I have reviewed the current psychotropics carefully including drug interactions. Risk benefit ratio favors no change other than as noted in my dictated progress note. Diagnosis: Problems: (1) Hallucinations (2) Impulse control disorder (3) Anxiety disorder (4) Psychotic disorder (5) Wernicke-Korsakoff syndrome (alcoholic) (6) Dementia, vascular, with depression (7) Dementia, vascular, with delusions (8) Major neurocognitive disorder due to Alzheimer's disease, with behavioral disturbance ELMA HURD MD Feb 22, 2020 06:55
[2020-02-22] MEDS: LACTULOSE 20 GM/30 ML SOLUTION. PO SCH ×2 (08:39→21:12)
[2020-02-22] MEDS: CLOPIDOGREL BISULFATE 75 MG TABLET PO SCH (08:40)
[2020-02-22] MEDS: LORazepam 1 MG TABLET PO SCH ×3 (08:40→21:15)
[2020-02-22] MEDS: DIVALPROEX 125 MG CAP.SPRINK PO SCH ×2 (08:40→21:11)
[2020-02-22] MEDS: levETIRAcetam 500 MG TABLET PO SCH ×2 (08:40→21:12)
[2020-02-22] MEDS: THIAMINE 100 MG TABLET. PO SCH (08:40)
[2020-02-22] MEDS: SENNOSIDES/DOCUSATE 8.6/50MG TABLET. PO SCH ×2 (08:40→21:11)
[2020-02-22] MEDS: DOCUSATE SODIUM 100 MG CAPSULE PO SCH ×2 (08:40→21:10)
[2020-02-22] MEDS: MAGNESIUM OXIDE 400 MG TABLET PO SCH (08:40)
[2020-02-22] MEDS: LACOSAMIDE 50 MG TABLET PO SCH ×2 (08:40→21:11)
[2020-02-22] MEDS: ASPIRIN CHEWABLE 81 MG TABLET. PO SCH (08:41)
[2020-02-22] MEDS: NICOTINE 7MG PATCH. TD SCH (08:41)
[2020-02-22] MEDS: HALOPERIDOL 5 MG TABLET PO SCH ×3 (08:41→21:10)
[2020-02-22] MEDS: PANTOPRAZOLE 40 MG TABLET. PO SCH (08:41)
[2020-02-22] MEDS: CHOLECALCIFEROL (VITAMIN D3) 1,000 UNIT TABLET PO SCH (08:41)
[2020-02-22 08:49] VITALS: BP 100/61
--- NOTE | 2020-02-22 08:51 | NUR ---
Held patients morning lorazepam r/t low BP and patient is very sleepy, Will re-assess later.
--- NOTE | 2020-02-22 11:17 | NUR ---
Patient is attempting to get out of Broda. Patient is not redirectable and is very restless Given PRN zyprexa and scheduled lorazepam from this morning. Will continue to monitor.
[2020-02-22 11:20] VITALS: BP 108/72
[2020-02-22] MEDS: traZODone 50 MG TABLET. PO SCH ×2 (14:44→17:00)
[2020-02-22 16:01] VITALS: BP 106/67
[2020-02-22] MEDS: traZODone 100 MG TABLET. PO SCH (21:10)
[2020-02-22] MEDS: MIRTAZAPINE 7.5 MG TABLET. PO SCH (21:11)
[2020-02-22] MEDS: ATORVASTATIN CALCIUM 20 MG TABLET PO SCH (21:11)
--- NOTE | 2020-02-22 21:48 | PDOC ---
Exam Note: Jay Note: Please also refer to the separate dictated note~for this date of service dictated separately.~Patient seen individually. Discussed the patient with Nursing staff reviewed the chart.~Reviewed interim history and current functioning. Reviewed vital signs,~Labs/ Radiology~and current medications noted below. Continue current treatment with the changes noted in the dictated addendum note Assessment: Vital Signs/I&O: Vital Signs Date Time Temp Pulse Resp B/P (MAP) Pulse Ox O2 Delivery O2 Flow Rate FiO2 02/22/20 18:20 97.5 02/22/20 16:01 79 16 106/67 (80) 94 02/22/20 11:20 Room Air I & O 02/21/20 02/21/20 02/22/20 14:59 22:59 06:59 Intake Total 600 ml 180 ml Output Total 350 ml 1300 ml Balance 600 ml -170 ml -1300 ml Current Medications: I have reviewed the current psychotropics carefully including drug interactions. Risk benefit ratio favors no change other than as noted in my dictated progress note. Diagnosis: Problems: (1) Hallucinations (2) Impulse control disorder (3) Anxiety disorder (4) Psychotic disorder (5) Wernicke-Korsakoff syndrome (alcoholic) (6) Dementia, vascular, with depression (7) Dementia, vascular, with delusions (8) Major neurocognitive disorder due to Alzheimer's disease, with behavioral disturbance ELMA HURD MD Feb 22, 2020 21:48
[2020-02-23 06:10] VITALS: BP 123/69
--- NOTE | 2020-02-23 06:15 | NUR ---
Nursing Note The patient was located in his room for his assessment and medication pass. The patient was restless but compliant with his assessment and medication pass. The patient is currently awake and restless in his room.
--- NOTE | 2020-02-23 07:26 | PDOC ---
Exam Note: Jay Note: This note is a late entry for 02/21/2020 covers elements not covered in my initial note. Subjective: The patient was seen face to face in the evening of 02/21/2020. Nursing report was with Roberto Carlos COFFEY. Discussed the patient with nursing staff in the evening reviewed the chart. He slept 7-1/2 hours previous night. He was restless previous night, calmer during the day. He has been coming out, sitting in the hallway which is an improvement. Review of Systems: Ambulation impaired. No CV, GI/, Pulmonary, Eye, ENT system symptoms on review. Reliability poor. Mental Status Exam: Oriented to himself. Insight and judgment, recent and remote memory, attention and concentration, fund of knowledge is poor consistent with his diagnosis. Laboratory Data: Reviewed. 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 Anxiety disorder unspecified. Impulse control disorder unspecified. Rest unchanged. Plan: No change from initial note. We have reduced the Haldol and Ativan and he is less sedated with this. Valproic acid level therapeutic at 61. Continue rest of the psychotropics unchanged from initial note. He is also on trazodone scheduled. Assessment: Vital Signs/I&O: Vital Signs Date Time Temp Pulse Resp B/P (MAP) Pulse Ox O2 Delivery O2 Flow Rate FiO2 02/23/20 06:10 97.4 94 16 123/69 (87) 94 Room Air I & O 02/22/20 02/22/20 02/23/20 15:00 23:00 07:00 Intake Total 360 ml 120 ml Output Total 900 ml 300 ml Balance 360 ml -780 ml -300 ml Current Medications: I have reviewed the current psychotropics carefully including drug interactions. Risk benefit ratio favors no change other than as noted in my dictated progress note. Diagnosis: Problems: (1) Impulse control disorder (2) Anxiety disorder (3) Psychotic disorder (4) Wernicke-Korsakoff syndrome (alcoholic) (5) Dementia, vascular, with depression (6) Dementia, vascular, with delusions (7) Major neurocognitive disorder due to Alzheimer's disease, with behavioral disturbance ELMA HURD MD Feb 23, 2020 07:26
[2020-02-23] MEDS: LACTULOSE 20 GM/30 ML SOLUTION. PO SCH ×2 (07:43→19:51)
[2020-02-23] MEDS: ASPIRIN CHEWABLE 81 MG TABLET. PO SCH (07:43)
[2020-02-23] MEDS: DIVALPROEX 125 MG CAP.SPRINK PO SCH ×2 (07:44→19:50)
[2020-02-23] MEDS: levETIRAcetam 500 MG TABLET PO SCH ×2 (07:44→19:51)
[2020-02-23] MEDS: LACOSAMIDE 50 MG TABLET PO SCH ×2 (07:44→19:51)
[2020-02-23] MEDS: HALOPERIDOL 5 MG TABLET PO SCH ×3 (07:44→19:50)
[2020-02-23] MEDS: CHOLECALCIFEROL (VITAMIN D3) 1,000 UNIT TABLET PO SCH (07:44)
[2020-02-23] MEDS: CLOPIDOGREL BISULFATE 75 MG TABLET PO SCH (07:44)
[2020-02-23] MEDS: MAGNESIUM OXIDE 400 MG TABLET PO SCH (07:45)
[2020-02-23] MEDS: THIAMINE 100 MG TABLET. PO SCH (07:45)
[2020-02-23] MEDS: LORazepam 1 MG TABLET PO SCH ×2 (07:45→19:51)
[2020-02-23] MEDS: SENNOSIDES/DOCUSATE 8.6/50MG TABLET. PO SCH ×2 (07:45→19:51)
[2020-02-23] MEDS: DOCUSATE SODIUM 100 MG CAPSULE PO SCH ×2 (07:45→19:50)
[2020-02-23] MEDS: PANTOPRAZOLE 40 MG TABLET. PO SCH (07:45)
[2020-02-23] MEDS: NICOTINE 7MG PATCH. TD SCH (07:46)
--- NOTE | 2020-02-23 09:53 | NUR ---
Phone conversation with PAMELA Linn at [facility], to provide update and progress report. Faxed current notes, medication list, labs, and speech therapy eval for review. Informed Temitope next concurrent review will be on 02/24/20. Reviewed that while assurance specialist here did not recommend hospice at this time, that Tuan could be evaluated for hospice service once he returns to [place]. Informed Temitope that staff has continued 1:1 for safety, has utilized Broda chair in reclined position in order to have Tuan in the group room, have utilized music as a diversion, and placed weighted blanket on Tuan for comfort.
[2020-02-23 10:01] LABS: BASO # 0.1 x10^3/uL (0.0-0.2); BASO % 1 % (0-3); EOS # 0.2 x10^3/uL (0.0-0.7); EOS % 3 % (0-3); HEMATOCRIT 36.5 % (39.0-53.0); LYMPH # 1.2 x10^3/uL (1.0-4.8); LYMPH % 18 % (24-48); MEAN CORPUSCULAR HEMOGLOBIN 29 pg (25-35); MEAN CORPUSCULAR HGB CONC 33 g/dL (31-37); MEAN CORPUSCULAR VOLUME 87 fL (79-100); MONO # 0.6 x10^3/uL (0.0-1.1); MONO % 10 % (0-9); NEUT # 4.5 x10^3uL (1.8-7.7); NEUT % 68 % (31-73); PLATELET COUNT 147 x10^3/uL (140-400); RED BLOOD COUNT 4.21 x10^6/uL (4.30-5.70); RED CELL DISTRIBUTION WIDTH 14.9 % (11.5-14.5); WHITE BLOOD COUNT 6.6 x10^3/uL (4.0-11.0)
[2020-02-23 10:28] LABS: ALBUMIN 3.2 g/dL (3.4-5.0); ALBUMIN/GLOBULIN RATIO 0.7 (1.0-1.7); CALCIUM 9.5 mg/dL (8.5-10.1); CREATININE 0.8 mg/dL (0.7-1.3); GFR 97.6; POTASSIUM 4.2 mmol/L (3.5-5.1); TOTAL BILIRUBIN 0.4 mg/dL (0.2-1.0); TOTAL PROTEIN 7.5 g/dL (6.4-8.2)
--- NOTE | 2020-02-23 12:30 | NUR ---
Patient is in broda chair and remains a 1:1 for safety. He is impulsive and tries to get up unassisted many times each day.
[2020-02-23] MEDS: traZODone 50 MG TABLET. PO SCH ×2 (14:44→17:00)
[2020-02-23 16:28] VITALS: BP 107/65
[2020-02-23] MEDS: traZODone 100 MG TABLET. PO SCH (19:50)
[2020-02-23] MEDS: ATORVASTATIN CALCIUM 20 MG TABLET PO SCH (19:51)
[2020-02-23] MEDS: MIRTAZAPINE 7.5 MG TABLET. PO SCH (19:51)
--- NOTE | 2020-02-23 22:23 | PDOC ---
Exam Note: Jay Note: This note is a late entry for 02/22/2020 covers elements not covered in my initial note. Subjective: The patient was seen face to face in the evening of 02/22/2020. Nursing report was with Gill RN. He slept 4 hours previous night. He remains confused, little more awake during the day. Review of Systems: Ambulation impaired. No CV, GI/, Pulmonary, Eye, ENT system symptoms on review. Reliability poor. Mental Status Exam: Oriented to himself. Insight and judgment, recent and remote memory, attention and concentration, fund of knowledge is poor consistent with his diagnosis. Laboratory Data: Reviewed. 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 Anxiety disorder unspecified. Impulse control disorder unspecified. Rest unchanged. Plan: No change from initial note. Continue psychotropics from initial note. Valproic acid level is 61. We will check with Dr. Engel whether Keppra can be stopped since he is therapeutic on the Depakote and also remains on Lacosamide for his seizure control. Keppra could be worsening some of his agitation. Maintain Haldol and consider reducing Ativan in due course. Maintain Remeron, trazodone and hydroxyzine for now. Assessment: Vital Signs/I&O: Vital Signs Date Time Temp Pulse Resp B/P (MAP) Pulse Ox O2 Delivery O2 Flow Rate FiO2 02/23/20 20:30 98.7 96 02/23/20 16:28 59 20 107/65 (79) 02/23/20 06:10 Room Air I & O 02/22/20 02/22/20 02/23/20 15:00 23:00 07:00 Intake Total 360 ml 120 ml Output Total 900 ml 300 ml Balance 360 ml -780 ml -300 ml Labs: Laboratory Tests Test 02/23/20 09:34 White Blood Count 6.6 x10^3/uL (4.0-11.0) Red Blood Count 4.21 x10^6/uL (4.30-5.70) L Hemoglobin 12.0 g/dL (13.0-17.5) L Hematocrit 36.5 % (39.0-53.0) L Mean Corpuscular Volume 87 fL (79-100) Mean Corpuscular Hemoglobin 29 pg (25-35) Mean Corpuscular Hemoglobin Concent 33 g/dL (31-37) Red Cell Distribution Width 14.9 % (11.5-14.5) H Platelet Count 147 x10^3/uL (140-400) Neutrophils (%) (Auto) 68 % (31-73) Lymphocytes (%) (Auto) 18 % (24-48) L Monocytes (%) (Auto) 10 % (0-9) H Eosinophils (%) (Auto) 3 % (0-3) Basophils (%) (Auto) 1 % (0-3) Neutrophils # (Auto) 4.5 x10^3uL (1.8-7.7) Lymphocytes # (Auto) 1.2 x10^3/uL (1.0-4.8) Monocytes # (Auto) 0.6 x10^3/uL (0.0-1.1) Eosinophils # (Auto) 0.2 x10^3/uL (0.0-0.7) Basophils # (Auto) 0.1 x10^3/uL (0.0-0.2) Sodium Level 135 mmol/L (136-145) L Potassium Level 4.2 mmol/L (3.5-5.1) Chloride Level 101 mmol/L (98-107) Carbon Dioxide Level 27 mmol/L (21-32) Anion Gap 7 (6-14) Blood Urea Nitrogen 20 mg/dL (8-26) Creatinine 0.8 mg/dL (0.7-1.3) Estimated GFR (Cockcroft-Gault) 97.6 BUN/Creatinine Ratio 25 (6-20) H Glucose Level 123 mg/dL (70-99) H Calcium Level 9.5 mg/dL (8.5-10.1) Total Bilirubin 0.4 mg/dL (0.2-1.0) Aspartate Amino Transferase (AST) 19 U/L (15-37) Alanine Aminotransferase (ALT) 15 U/L (16-63) L Alkaline Phosphatase 98 U/L (46-116) Total Protein 7.5 g/dL (6.4-8.2) Albumin 3.2 g/dL (3.4-5.0) L Albumin/Globulin Ratio 0.7 (1.0-1.7) L Current Medications: I have reviewed the current psychotropics carefully including drug interactions. Risk benefit ratio favors no change other than as noted in my dictated progress note. 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
--- NOTE | 2020-02-23 22:23 | PDOC ---
Exam Note: Jay Note: Please also refer to the separate dictated note~for this date of service dictated separately.~Patient seen individually. Discussed the patient with Nursing staff reviewed the chart.~Reviewed interim history and current functioning. Reviewed vital signs,~Labs/ Radiology~and current medications noted below. Continue current treatment with the changes noted in the dictated addendum note Assessment: Vital Signs/I&O: Vital Signs Date Time Temp Pulse Resp B/P (MAP) Pulse Ox O2 Delivery O2 Flow Rate FiO2 02/23/20 20:30 98.7 96 02/23/20 16:28 59 20 107/65 (79) 02/23/20 06:10 Room Air I & O 02/22/20 02/22/20 02/23/20 15:00 23:00 07:00 Intake Total 360 ml 120 ml Output Total 900 ml 300 ml Balance 360 ml -780 ml -300 ml Labs: Laboratory Tests Test 02/23/20 09:34 White Blood Count 6.6 x10^3/uL (4.0-11.0) Red Blood Count 4.21 x10^6/uL (4.30-5.70) L Hemoglobin 12.0 g/dL (13.0-17.5) L Hematocrit 36.5 % (39.0-53.0) L Mean Corpuscular Volume 87 fL (79-100) Mean Corpuscular Hemoglobin 29 pg (25-35) Mean Corpuscular Hemoglobin Concent 33 g/dL (31-37) Red Cell Distribution Width 14.9 % (11.5-14.5) H Platelet Count 147 x10^3/uL (140-400) Neutrophils (%) (Auto) 68 % (31-73) Lymphocytes (%) (Auto) 18 % (24-48) L Monocytes (%) (Auto) 10 % (0-9) H Eosinophils (%) (Auto) 3 % (0-3) Basophils (%) (Auto) 1 % (0-3) Neutrophils # (Auto) 4.5 x10^3uL (1.8-7.7) Lymphocytes # (Auto) 1.2 x10^3/uL (1.0-4.8) Monocytes # (Auto) 0.6 x10^3/uL (0.0-1.1) Eosinophils # (Auto) 0.2 x10^3/uL (0.0-0.7) Basophils # (Auto) 0.1 x10^3/uL (0.0-0.2) Sodium Level 135 mmol/L (136-145) L Potassium Level 4.2 mmol/L (3.5-5.1) Chloride Level 101 mmol/L (98-107) Carbon Dioxide Level 27 mmol/L (21-32) Anion Gap 7 (6-14) Blood Urea Nitrogen 20 mg/dL (8-26) Creatinine 0.8 mg/dL (0.7-1.3) Estimated GFR (Cockcroft-Gault) 97.6 BUN/Creatinine Ratio 25 (6-20) H Glucose Level 123 mg/dL (70-99) H Calcium Level 9.5 mg/dL (8.5-10.1) Total Bilirubin 0.4 mg/dL (0.2-1.0) Aspartate Amino Transferase (AST) 19 U/L (15-37) Alanine Aminotransferase (ALT) 15 U/L (16-63) L Alkaline Phosphatase 98 U/L (46-116) Total Protein 7.5 g/dL (6.4-8.2) Albumin 3.2 g/dL (3.4-5.0) L Albumin/Globulin Ratio 0.7 (1.0-1.7) L Current Medications: I have reviewed the current psychotropics carefully including drug interactions. Risk benefit ratio favors no change other than as noted in my dictated progress note. Diagnosis: Problems: (1) Hallucinations (2) Impulse control disorder (3) Anxiety disorder (4) Psychotic disorder (5) Wernicke-Korsakoff syndrome (alcoholic) (6) Dementia, vascular, with depression (7) Dementia, vascular, with delusions (8) Major neurocognitive disorder due to Alzheimer's disease, with behavioral disturbance ELMA HURD MD Feb 23, 2020 22:23
--- NOTE | 2020-02-23 22:48 | NUR ---
Pt continues to have 1:1 sitter at bedside for safety. Pt restless and attempting to get out of bed repeatedly. Compliant with medications crushed in one bite of pudding.
[2020-02-24 05:26] VITALS: BP 106/79
[2020-02-24] MEDS: LACOSAMIDE 50 MG TABLET PO SCH ×2 (08:42→20:37)
[2020-02-24] MEDS: NICOTINE 7MG PATCH. TD SCH (08:42)
[2020-02-24] MEDS: levETIRAcetam 500 MG TABLET PO SCH ×2 (08:43→20:38)
[2020-02-24] MEDS: LORazepam 1 MG TABLET PO SCH ×2 (08:44→20:36)
[2020-02-24] MEDS: PANTOPRAZOLE 40 MG TABLET. PO SCH (08:44)
[2020-02-24] MEDS: CHOLECALCIFEROL (VITAMIN D3) 1,000 UNIT TABLET PO SCH (08:44)
[2020-02-24] MEDS: HALOPERIDOL 5 MG TABLET PO SCH ×3 (08:44→20:38)
[2020-02-24] MEDS: DIVALPROEX 125 MG CAP.SPRINK PO SCH ×2 (08:44→20:37)
[2020-02-24] MEDS: THIAMINE 100 MG TABLET. PO SCH (08:44)
[2020-02-24] MEDS: CLOPIDOGREL BISULFATE 75 MG TABLET PO SCH (08:45)
[2020-02-24] MEDS: ASPIRIN CHEWABLE 81 MG TABLET. PO SCH (08:45)
[2020-02-24] MEDS: SENNOSIDES/DOCUSATE 8.6/50MG TABLET. PO SCH ×2 (08:45→20:38)
[2020-02-24] MEDS: DOCUSATE SODIUM 100 MG CAPSULE PO SCH ×2 (08:45→20:37)
[2020-02-24] MEDS: MAGNESIUM OXIDE 400 MG TABLET PO SCH (08:45)
[2020-02-24] MEDS: LACTULOSE 20 GM/30 ML SOLUTION. PO SCH ×2 (08:45→20:38)
--- NOTE | 2020-02-24 12:59 | NUR ---
This nurse spoke to Dr Engel regarding discontinuing the Keppra per Dr Catalan request. Dr Catalan stated that the Depakote level is therapeutic. Dr Engel said he will check into the medications and dictate a note.
--- NOTE | 2020-02-24 13:13 | NUR ---
Concurrent review completed on this date with Violet from [facility]. Tuan is approved thru 02/28/2020. He will discharge to [facility] on 02/28/2020. Left message with PAMELA Linn at [place], to inform and coordinate upcoming discharge. Awaiting return phone call.
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
[2020-02-24] MEDS: traZODone 50 MG TABLET. PO SCH ×2 (14:56→16:59)
[2020-02-24 16:04] VITALS: BP 125/77
[2020-02-24] MEDS: ATORVASTATIN CALCIUM 20 MG TABLET PO SCH (20:37)
[2020-02-24] MEDS: traZODone 100 MG TABLET. PO SCH (20:38)
[2020-02-24] MEDS: MIRTAZAPINE 7.5 MG TABLET. PO SCH (20:38)
--- NOTE | 2020-02-24 22:12 | PDOC ---
Exam Note: Jay Note: Please also refer to the separate dictated note~for this date of service dictated separately.~Patient seen individually. Discussed the patient with Nursing staff reviewed the chart.~Reviewed interim history and current functioning. Reviewed vital signs,~Labs/ Radiology~and current medications noted below. Continue current treatment with the changes noted in the dictated addendum note Assessment: Vital Signs/I&O: Vital Signs Date Time Temp Pulse Resp B/P (MAP) Pulse Ox O2 Delivery O2 Flow Rate FiO2 02/24/20 18:04 97.6 02/24/20 16:04 74 125/77 (93) 98 02/24/20 05:26 16 02/23/20 06:10 Room Air I & O 02/23/20 02/23/20 02/24/20 15:00 23:00 07:00 Intake Total 480 ml 600 ml Output Total 800 ml Balance 480 ml 600 ml -800 ml Current Medications: I have reviewed the current psychotropics carefully including drug interactions. Risk benefit ratio favors no change other than as noted in my dictated progress note. Diagnosis: Problems: (1) Hallucinations (2) Impulse control disorder (3) Anxiety disorder (4) Psychotic disorder (5) Wernicke-Korsakoff syndrome (alcoholic) (6) Dementia, vascular, with depression (7) Dementia, vascular, with delusions (8) Major neurocognitive disorder due to Alzheimer's disease, with behavioral disturbance ELMA HURD MD Feb 24, 2020 22:12
--- NOTE | 2020-02-24 23:59 | NUR ---
Pt sitting in broda in hallway tonight and is reporting a headache. PRN tylenol given with other meds crushed in pudding. He seems more interactive today and speech is bit clearer. After going to bed he was restless and disorganized but eventually did get some sleep.
[2020-02-25 06:43] VITALS: BP 111/64
--- NOTE | 2020-02-25 07:46 | PDOC ---
Exam Note: Jay Note: This note is a late entry for 02/23/2020 covers elements not covered in my initial note. Subjective: The patient was seen face to face in the evening of 02/23/2020. Nursing report was with Ailin COFFEY. He slept 1-3/4 hours previous night. He is restless, anxious but less sedated and less symptoms of acathisia since we reduced the Haldol. Review of Systems: Ambulation impaired, in Broda chair. No CV, , pulmonary, eye, ENT system symptoms on review. Reliability poor. Mental Status Exam: Oriented to himself. Insight and judgment, recent and remote memory, attention and concentration, fund of knowledge is poor consistent with his diagnoses. Laboratory Data: Reviewed. 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 Anxiety disorder unspecified. Impulse control disorder unspecified. Rest unchanged. Plan: No change from initial note. Assessment: Vital Signs/I&O: Vital Signs Date Time Temp Pulse Resp B/P (MAP) Pulse Ox O2 Delivery O2 Flow Rate FiO2 02/25/20 06:43 97.4 70 14 111/64 (80) 95 02/23/20 06:10 Room Air I & O0 02/24/20 02/24/20 02/25/20 15:00 23:00 07:00 Intake Total 480 ml 600 ml Output Total 500 ml Balance 480 ml 100 ml Current Medications: I have reviewed the current psychotropics carefully including drug interactions. Risk benefit ratio favors no change other than as noted in my dictated progress note. Diagnosis: Problems: (1) Hallucinations (2) Impulse control disorder (3) Anxiety disorder (4) Psychotic disorder (5) Wernicke-Korsakoff syndrome (alcoholic) (6) Dementia, vascular, with depression (7) Dementia, vascular, with delusions (8) Major neurocognitive disorder due to Alzheimer's disease, with behavioral disturbance ELMA HURD MD Feb 25, 2020 07:46
--- NOTE | 2020-02-25 08:02 | PDOC ---
Exam Note: Jay Note: This note is a late entry for 02/24/2020 covers elements not covered in my initial note. Subjective: The patient was seen face to face in the morning of 02/24/2020 with treatment team meeting with Jenn COFFEY, Jeimy Eugene and Paula (social service staff) and Estephanie Activity Therapy. I saw the patient individually in the evening. Sleeping average 5 hours. He slept 7-1/2 hours previous night. His appetite is 50%. Thebes thickened liquids have been changed to honey thickened. He is restless, anxious. Per Gill COFFEY, he has been anxious, restless. Review of Systems: Ambulation impaired, in Broda chair. No CV, , pulmonary, eye, ENT system symptoms on review. Reliability poor. Mental Status Exam: Oriented to himself. Insight and judgment, recent and remote memory, attention and concentration, fund of knowledge is poor consistent with his diagnoses. Laboratory Data: Reviewed. Sodium low at 135. ALT 15. 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 Anxiety disorder unspecified. Impulse control disorder unspecified. Rest unchanged. Plan: No change from initial note. We may reduce the Haldol further as the acathisia seems to worsen his agitation. Assessment: Vital Signs/I&O: Vital Signs Date Time Temp Pulse Resp B/P (MAP) Pulse Ox O2 Delivery O2 Flow Rate FiO2 02/25/20 06:43 97.4 70 14 111/64 (80) 95 02/23/20 06:10 Room Air I & O 02/24/20 02/24/20 02/25/20 15:00 23:00 07:00 Intake Total 480 ml 600 ml Output Total 500 ml Balance 480 ml 100 ml Current Medications: I have reviewed the current psychotropics carefully including drug interactions. Risk benefit ratio favors no change other than as noted in my dictated progress note. Diagnosis: Problems: (1) Impulse control disorder (2) Anxiety disorder (3) Psychotic disorder (4) Wernicke-Korsakoff syndrome (alcoholic) (5) Dementia, vascular, with depression (6) Dementia, vascular, with delusions (7) Major neurocognitive disorder due to Alzheimer's disease, with behavioral disturbance ELMA HURD MD Feb 25, 2020 08:02
[2020-02-25] MEDS: SENNOSIDES/DOCUSATE 8.6/50MG TABLET. PO SCH ×2 (09:37→21:05)
[2020-02-25] MEDS: THIAMINE 100 MG TABLET. PO SCH (09:38)
[2020-02-25] MEDS: CHOLECALCIFEROL (VITAMIN D3) 1,000 UNIT TABLET PO SCH (09:38)
[2020-02-25] MEDS: HALOPERIDOL 5 MG TABLET PO SCH ×3 (09:38→21:06)
[2020-02-25] MEDS: DOCUSATE SODIUM 100 MG CAPSULE PO SCH ×2 (09:38→21:05)
[2020-02-25] MEDS: ASPIRIN CHEWABLE 81 MG TABLET. PO SCH (09:38)
[2020-02-25] MEDS: MAGNESIUM OXIDE 400 MG TABLET PO SCH (09:38)
[2020-02-25] MEDS: PANTOPRAZOLE 40 MG TABLET. PO SCH (09:38)
[2020-02-25] MEDS: LACOSAMIDE 50 MG TABLET PO SCH ×2 (09:39→21:06)
[2020-02-25] MEDS: DIVALPROEX 125 MG CAP.SPRINK PO SCH ×2 (09:39→21:06)
[2020-02-25] MEDS: LORazepam 1 MG TABLET PO SCH ×2 (09:39→21:06)
[2020-02-25] MEDS: CLOPIDOGREL BISULFATE 75 MG TABLET PO SCH (09:39)
[2020-02-25] MEDS: LACTULOSE 20 GM/30 ML SOLUTION. PO SCH ×2 (09:39→21:07)
[2020-02-25] MEDS: NICOTINE 7MG PATCH. TD SCH (09:40)
--- NOTE | 2020-02-25 10:03 | PN ---
DATE: 02/24/2020 SUBJECTIVE: The patient denies any new medical or neurological complaints. He has not had any recurrent seizures since admission. The patient has been intermittently restless and anxious. OBJECTIVE: GENERAL: Well-developed, well-nourished male, not in acute distress. VITAL SIGNS: Blood pressure 125/77, respiratory rate 16, pulse is 74, temperature 97.4, oxygen saturation 98% on room air. HEENT: Normocephalic, atraumatic, otherwise unremarkable. NECK: Supple. Negative for carotid bruit, lymphadenopathy or thyromegaly. LUNGS: Clear to A and P. CARDIOVASCULAR: Regular rate and rhythm. Normal S1, S2. ABDOMEN: Soft. Bowel sounds positive. EXTREMITIES: Negative for cyanosis, clubbing or edema. NEUROLOGICAL EXAM: Mental Status: The patient is alert and oriented to himself and situation. Speech is fluent. There is no language dysfunction. Memory, judgment, and abstracting thinking are fair. The patient denies hallucination or delusion. Cranial nerves are intact. Motor examination revealed no focal muscle bulk. The strength is 4/5 in the left upper and lower extremities compared to those on the right side. Sensory examination revealed diminished pinprick and light touch senses in patchy distributions and more prominent on the left upper and lower extremities. Deep tendon reflexes were symmetric and 3/5 on the left upper and lower extremities and 2/4 in the left upper and lower extremities and 1/4 in the right upper and lower extremities. Achilles responses are absent bilaterally. Gait not tested. IMPRESSION: 1. 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 2. History of seizure disorder, probably secondary to previous stroke or subdural hemorrhage; however, the patient has not had any recurrent seizures since admission and he has been on 3 anticonvulsants including Depakote, Vimpat and Keppra. 3. Hyperlipidemia, depression, anxiety and behavior disturbances. 4. Chronic alcohol abuse. RECOMMENDATIONS: 1. Continue with current medical and psychiatric care. 2. We will discontinue Keppra tomorrow, as the patient has therapeutic Depakote level. Otherwise, we will continue with current other anticonvulsants. M Jace MONTEJO MD DR: EUGENIA/orestes JOB#: [id number] / [id number]
--- NOTE | 2020-02-25 10:38 | CONS ---
DATE OF CONSULTATION: 02/23/2020 NEUROLOGY CONSULTATION REFERRING PHYSICIAN: Dr. Catalan. REASON FOR CONSULTATION: History of seizure disorder. HISTORY OF PRESENT ILLNESS: This is a 64-year-old right-handed male who was admitted on 02/07/2020 on account of worsening of confusion, sexual inappropriate behaviors and history of alcohol-induced Wernicke-Korsakoff encephalopathy. Neuro consult was requested because the patient has a history of seizure disorder, etiology uncertain, probably related to previous stroke. Currently, he has been on Keppra and Depakote. The patient has not had any recurrent seizures since admission; however, he does not remember the last seizure. Currently, the patient denies any headaches, visual disturbances, nausea, vomiting, chest pain, shortness of breath or palpitation. He has had a longstanding history of alcohol and drug abuse. Currently, he has been restrained to the wheelchair to avoid any falls. PAST MEDICAL HISTORY: Significant for behavior disturbances, agitation, chronic alcohol abuse, Wernicke's encephalopathy, history of stroke in 2019 resulted in left hemiparesis, seizure disorder, subdural hemorrhage secondary to fall and chronic obstructive pulmonary disease. FAMILY HISTORY: Not obtainable. SOCIAL HISTORY: The patient denies smoking and current alcohol drinking or drug abuse. CURRENT MEDICATIONS: Lorazepam, mirtazapine, haloperidol for agitation, Depakote, vitamin D, thiamine, Plavix, aspirin, pantoprazole, hydroxyzine, trazodone, Keppra, lactulose, Vimpat, Lipitor, olanzapine, nicotine patches, melatonin, Tylenol, Dulcolax. ALLERGIES: No known drug allergies. REVIEW OF SYSTEMS: A 10-point review of system was performed as mentioned above in history of present illness. PHYSICAL EXAMINATION: GENERAL: Well-developed, well-nourished male, not in acute distress. VITAL SIGNS: Blood pressure 107/65, respiratory rate 20, pulse is 59, oxygen saturation 91% on room air, and temperature 98.3. HEENT: Normocephalic, atraumatic, otherwise unremarkable. NECK: Supple. Negative for carotid bruit, lymphadenopathy or thyromegaly. LUNGS: Clear to A and P. CARDIOVASCULAR: Regular rate and rhythm, normal S1, S2. ABDOMEN: Soft. Bowel sounds positive. EXTREMITIES: Negative for cyanosis, clubbing or pitting edema. NEUROLOGICAL EXAM: 1. MENTAL STATUS: The patient is alert and oriented to himself. Speech is fluent. There is no language dysfunction. Memory, judgment, and abstracting thinking are fair. The patient denies hallucination or delusion. 2. CRANIAL NERVES: Visual linn are full. Pupils are reactive to light and accommodation. The extraocular movements are intact. There is no nystagmus. There is no facial motor or sensory deficit. Hearing is intact bilaterally. The palate is elevated symmetrically. Sternocleidomastoid muscles are powerful bilaterally. The patient shrugs his shoulders symmetrically, protrudes his tongue in the midline without fasciculation or atrophy. 3. MOTOR: No focal muscle bulk was seen. The tone is normal. The strength is 4/5 in the left upper and lower extremities compared to the right upper and lower extremities. The tone is normal. Sensory examination revealed diminished pinprick and light touch senses over the left upper and lower extremities dermatomes. Deep tendon reflexes were symmetric and hyperactive at 3/5 on the left upper and lower extremities. Gait: The patient confined to a wheelchair. LABORATORY DATA: Today, CBC revealed white blood cells of 6.6, hemoglobin 12, hematocrit 36.5, platelet count 147,000. Chemistry: Sodium 135, potassium 4.2, chloride 101, CO2 of 27, BUN 20, creatinine 0.8, glucose 123, calcium 9.3. Liver enzymes: ALT is normal at 98 and AST is low at 15. Urinalysis is negative for urinary tract infections. Valproic acid from 02/15/2020 is 61. Otherwise, urinary drug screen is negative. IMAGING: Head CT scan performed on 02/09/2020 revealed mild atrophy, otherwise no acute intracranial process. Chest x-ray revealed chronic COPD, no acute cardiopulmonary process. IMPRESSION: 1. History of stroke affecting left side and probably resulted in left side with subdural hemorrhage complicated with seizure; however, the patient has been stable since admission and he has not had any recurrent seizure. 2. Chronic alcohol abuse, resulted in Wernicke-Korsakoff syndrome. 3. Hyperlipidemia, chronic obstructive pulmonary disease and gastroesophageal reflux disease. 4. Multiple psychiatric problems include anxiety, behavior disturbances with intermittent psychosis and possible early dementia. RECOMMENDATIONS: 1. We will continue with current home medication and we will discontinue Keppra when the Depakote level is more therapeutic in the mid 70s. The patient has been on Vimpat as well. 2. Continue with current medical and psychiatric care. M Jace MONTEJO MD DR: EUGENIA/orestes JOB#: [id number] / [id number]
--- NOTE | 2020-02-25 10:49 | PN ---
DATE: SUBJECTIVE: The patient denies any new medical or neurological complaints; however, he has been quiet this morning. No recurrent seizures since admission. OBJECTIVE: GENERAL: Well-developed, well-nourished male, not in acute distress. VITAL SIGNS: Blood pressure 111/64, respiratory rate 14, pulse is 70 and regular, temperature 97.1, oxygen saturation 95% on room air. HEENT: Normocephalic, atraumatic, otherwise unremarkable. NECK: Supple. Negative for carotid bruit, lymphadenopathy or thyromegaly. LUNGS: Clear to A and P. CARDIOVASCULAR: Regular rate and rhythm, normal S1, S2. ABDOMEN: Soft. Bowel sounds positive. EXTREMITIES: Negative for cyanosis, clubbing or edema. NEUROLOGIC: Mental Status: The patient is alert, but quiet. He follows 1-step commands. Speech is slow this morning and there is no language dysfunction. Further evaluation is limited at this time. Cranial nerves are grossly intact. Motor Examination: The patient did not cooperate with examination. Sensory examination revealed normal pinprick and light touch senses. Deep tendon reflexes were hypoactive on the right upper and lower extremity and 2/4 on the left upper and lower extremities with absent Achilles responses. Gait not tested. IMPRESSION: 1. Chronic alcohol and drug abuse with history of Wernicke-Korsakoff syndrome. 2. History of seizure disorder, probably due to previous stroke or subdural hemorrhage. 3. Multiple medical and psychiatric care. RECOMMENDATION: We will discontinue Keppra and continue with other anticonvulsant as Depakote level has been therapeutic. M Jace MONTEJO MD DR: EUGENIA/orestes JOB#: [id number] / [id number]
[2020-02-25] MEDS: traZODone 50 MG TABLET. PO SCH ×2 (13:04→17:26)
--- NOTE | 2020-02-25 13:10 | NUR ---
[facility] Social Work Discharge Planning Form Patient Name JUANITA BELTRE Admit Date: 02/07/2020 DISCHARGE PLAN Discharge Destination: [facility] Assessment: Previously completed Transportation: [facility] will transport at 10am on 02/28/2020. Special Instructions/Notes: Upon return to [facility], arrange for f/u appointments with house physician and psychiatrist within 7-10 days. DISCHARGE TO FACILITY Facility: [facility] Address: [address] [place] [address] Contact Name: PAMELA Linn PCP: Dr. Hamlin [phone](phone), (fax) Psychiatrist: MIKAYLA Quinteros
--- NOTE | 2020-02-25 13:38 | NUR ---
Call placed to Tuan Coronado, son/POA, to update and inform of plan for Tuan to transition back to [facility] on 02/28/20 provided he has no significant change in condition over the weekend. Tuan Hernandez was agreeable to plan and thanked this worker for the call.
[2020-02-25 16:06] LABS: BASO % 1 % (0-3); EOS # 0.1 x10^3/uL (0.0-0.7); EOS % 3 % (0-3); HEMATOCRIT 36.9 % (39.0-53.0); HEMOGLOBIN 12.2 g/dL (13.0-17.5); LYMPH # 1.5 x10^3/uL (1.0-4.8); LYMPH % 33 % (24-48); MEAN CORPUSCULAR HEMOGLOBIN 29 pg (25-35); MEAN CORPUSCULAR HGB CONC 33 g/dL (31-37); MEAN CORPUSCULAR VOLUME 87 fL (79-100); MONO # 0.4 x10^3/uL (0.0-1.1); MONO % 10 % (0-9); NEUT # 2.3 x10^3uL (1.8-7.7); NEUT % 52 % (31-73); PLATELET COUNT 146 x10^3/uL (140-400); RED BLOOD COUNT 4.22 x10^6/uL (4.30-5.70); RED CELL DISTRIBUTION WIDTH 14.5 % (11.5-14.5); WHITE BLOOD COUNT 4.4 x10^3/uL (4.0-11.0)
[2020-02-25 16:30] VITALS: BP 109/74
[2020-02-25 16:35] LABS: ALBUMIN 3.4 g/dL (3.4-5.0); ALBUMIN/GLOBULIN RATIO 0.8 (1.0-1.7); CALCIUM 9.3 mg/dL (8.5-10.1); CREATININE 0.7 mg/dL (0.7-1.3); GFR 113.9; POTASSIUM 3.9 mmol/L (3.5-5.1); TOTAL BILIRUBIN 0.3 mg/dL (0.2-1.0); TOTAL PROTEIN 7.7 g/dL (6.4-8.2)
--- NOTE | 2020-02-25 18:26 | NUR ---
Nursing note: Pt was in his room this AM for meds and assessment. He was med compliant and cooperative. Pt was later heard to be coughing and was unable to cough out any of the phlegm in his throat. Pt was provided with suction X2. His O2 remained WNL. Pt has been restless this shift, but has had no further problems with swallowing. Will continue to monitor.
--- NOTE | 2020-02-25 18:42 | NUR ---
Patient was restless in bed, trying to get out, wanting to use the "stairs." PRN sharifa given @184. Pt is now in bed, will continue to monitor.
[2020-02-25] MEDS: ATORVASTATIN CALCIUM 20 MG TABLET PO SCH (21:05)
[2020-02-25] MEDS: hydrOXYzine HCL 25 MG TABLET PO PRN (21:05)
[2020-02-25] MEDS: MIRTAZAPINE 7.5 MG TABLET. PO SCH (21:05)
[2020-02-25] MEDS: traZODone 100 MG TABLET. PO SCH (21:05)
--- NOTE | 2020-02-25 22:16 | PDOC ---
Exam Note: Jay Note: Please also refer to the separate dictated note~for this date of service dictated separately.~Patient seen individually. Discussed the patient with Nursing staff reviewed the chart.~Reviewed interim history and current functioning. Reviewed vital signs,~Labs/ Radiology~and current medications noted below. Continue current treatment with the changes noted in the dictated addendum note Assessment: Vital Signs/I&O: Vital Signs Date Time Temp Pulse Resp B/P (MAP) Pulse Ox O2 Delivery O2 Flow Rate FiO2 02/25/20 18:18 97.6 02/25/20 16:30 94 20 109/74 (86) 97 02/23/20 06:10 Room Air I & O 02/24/20 02/24/20 02/25/20 15:00 23:00 07:00 Intake Total 480 ml 600 ml Output Total 500 ml Balance 480 ml 100 ml Labs: Laboratory Tests Test 02/25/20 15:58 White Blood Count 4.4 x10^3/uL (4.0-11.0) Red Blood Count 4.22 x10^6/uL (4.30-5.70) L Hemoglobin 12.2 g/dL (13.0-17.5) L Hematocrit 36.9 % (39.0-53.0) L Mean Corpuscular Volume 87 fL (79-100) Mean Corpuscular Hemoglobin 29 pg (25-35) Mean Corpuscular Hemoglobin Concent 33 g/dL (31-37) Red Cell Distribution Width 14.5 % (11.5-14.5) Platelet Count 146 x10^3/uL (140-400) Neutrophils (%) (Auto) 52 % (31-73) Lymphocytes (%) (Auto) 33 % (24-48) Monocytes (%) (Auto) 10 % (0-9) H Eosinophils (%) (Auto) 3 % (0-3) Basophils (%) (Auto) 1 % (0-3) Neutrophils # (Auto) 2.3 x10^3uL (1.8-7.7) Lymphocytes # (Auto) 1.5 x10^3/uL (1.0-4.8) Monocytes # (Auto) 0.4 x10^3/uL (0.0-1.1) Eosinophils # (Auto) 0.1 x10^3/uL (0.0-0.7) Basophils # (Auto) 0.0 x10^3/uL (0.0-0.2) Sodium Level 138 mmol/L (136-145) Potassium Level 3.9 mmol/L (3.5-5.1) Chloride Level 101 mmol/L (98-107) Carbon Dioxide Level 29 mmol/L (21-32) Anion Gap 8 (6-14) Blood Urea Nitrogen 19 mg/dL (8-26) Creatinine 0.7 mg/dL (0.7-1.3) Estimated GFR (Cockcroft-Gault) 113.9 BUN/Creatinine Ratio 27 (6-20) H Glucose Level 104 mg/dL (70-99) H Calcium Level 9.3 mg/dL (8.5-10.1) Total Bilirubin 0.3 mg/dL (0.2-1.0) Aspartate Amino Transferase (AST) 15 U/L (15-37) Alanine Aminotransferase (ALT) 16 U/L (16-63) Alkaline Phosphatase 100 U/L (46-116) Total Protein 7.7 g/dL (6.4-8.2) Albumin 3.4 g/dL (3.4-5.0) Albumin/Globulin Ratio 0.8 (1.0-1.7) L Current Medications: I have reviewed the current psychotropics carefully including drug interactions. Risk benefit ratio favors no change other than as noted in my dictated progress note. 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
--- NOTE | 2020-02-26 01:45 | NUR ---
Last evening pt was restless and disorganized he was trying to get up so he can "go upstairs". Approximately 30 mins after taking meds crushed in pudding he quieted and went to sleep.
[2020-02-26 05:57] VITALS: BP 116/67
[2020-02-26] MEDS: MAGNESIUM OXIDE 400 MG TABLET PO SCH ×2 (08:41→20:25)
[2020-02-26] MEDS: NICOTINE 7MG PATCH. TD SCH (08:41)
[2020-02-26] MEDS: LORazepam 1 MG TABLET PO SCH ×2 (08:41→20:27)
[2020-02-26] MEDS: DIVALPROEX 125 MG CAP.SPRINK PO SCH ×2 (08:41→20:25)
[2020-02-26] MEDS: CHOLECALCIFEROL (VITAMIN D3) 1,000 UNIT TABLET PO SCH (08:41)
[2020-02-26] MEDS: LACOSAMIDE 50 MG TABLET PO SCH ×2 (08:41→20:27)
[2020-02-26] MEDS: LACTULOSE 20 GM/30 ML SOLUTION. PO SCH ×2 (08:42→20:25)
[2020-02-26] MEDS: ASPIRIN CHEWABLE 81 MG TABLET. PO SCH (08:42)
[2020-02-26] MEDS: CLOPIDOGREL BISULFATE 75 MG TABLET PO SCH (08:42)
[2020-02-26] MEDS: HALOPERIDOL 5 MG TABLET PO SCH ×3 (08:42→20:27)
[2020-02-26] MEDS: THIAMINE 100 MG TABLET. PO SCH (08:42)
[2020-02-26] MEDS: DOCUSATE SODIUM 100 MG CAPSULE PO SCH ×2 (08:42→20:26)
[2020-02-26] MEDS: SENNOSIDES/DOCUSATE 8.6/50MG TABLET. PO SCH ×2 (08:42→20:26)
[2020-02-26] MEDS: PANTOPRAZOLE 40 MG TABLET. PO SCH (08:42)
--- NOTE | 2020-02-26 09:35 | NUR ---
Patient remains 1:1 for safety. Patient awake, in bed and talking to "potatoe" that he said was on the bed rail. Nurse assisted HOST/HOSTESS [employer] to help patient into broda chair. Patient cooperative and could some bear weight with assist x2. Morning medications given crushed in chocolate pudding. Patient cooperative and compliant. Patient sitting calmly in day room with 1:1 attendant. He had been given the activity board and said "I do not want anything to do with it". He is currently drawing circles with his finger on the table.
[2020-02-26] MEDS: traZODone 50 MG TABLET. PO SCH ×2 (12:40→16:31)
[2020-02-26 15:59] VITALS: BP 102/66
[2020-02-26] MEDS: ATORVASTATIN CALCIUM 20 MG TABLET PO SCH (20:26)
[2020-02-26] MEDS: MIRTAZAPINE 7.5 MG TABLET. PO SCH (20:27)
[2020-02-26] MEDS: traZODone 100 MG TABLET. PO SCH (20:27)
--- NOTE | 2020-02-26 21:57 | PDOC ---
Exam Note: Jay Note: Please also refer to the separate dictated note~for this date of service dictated separately.~Patient seen individually. Discussed the patient with Nursing staff reviewed the chart.~Reviewed interim history and current functioning. Reviewed vital signs,~Labs/ Radiology~and current medications noted below. Continue current treatment with the changes noted in the dictated addendum note Assessment: Vital Signs/I&O: Vital Signs Date Time Temp Pulse Resp B/P (MAP) Pulse Ox O2 Delivery O2 Flow Rate FiO2 02/26/20 15:59 98.5 92 16 102/66 (78) 98 Room Air I & O 02/25/20 02/25/20 02/26/20 15:00 23:00 07:00 Intake Total 240 ml 240 ml Output Total 500 ml Balance 240 ml 240 ml -500 ml Current Medications: I have reviewed the current psychotropics carefully including drug interactions. Risk benefit ratio favors no change other than as noted in my dictated progress note. 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
[2020-02-26] MEDS: hydrOXYzine HCL 25 MG TABLET PO PRN (22:45)
[2020-02-26] MEDS: MELATONIN 3 MG TABLET PO PRN (22:48)
--- NOTE | 2020-02-27 02:15 | NUR ---
Last evening pt was restless and trying to get OOB. Hs meds were taken crushed in pudding and he was a ignacio less restless for awhile. Prns were given and after approx 1 hour he went to sleep. He remains confused, calling out names, trying to go ''upstairs" and is able to state name , year and President Tessa.
[2020-02-27 06:23] VITALS: BP 100/62
--- NOTE | 2020-02-27 07:41 | PDOC ---
Exam Note: Jay Note: This note is a late entry for 02/25/2020 covers elements not covered in my initial note. Subjective: The patient was seen face to face in the evening of 02/25/2020. Nursing report was with Ailin COFFEY. He slept 1-1/4 hours previous night but he naps off and on all day. The patients Keppra was stopped by Dr. Engel since he is on the Depakote with therapeutic level and is also on lacosamide for his seizures. Review of Systems: Ambulation impaired, in wheelchair. No CV, , pulmonary, eye, ENT system symptoms on review. Reliability poor. Mental Status Exam: Oriented to himself. Insight and judgment, recent and remote memory, attention and concentration, fund of knowledge is poor consistent with his diagnoses. Laboratory Data: Reviewed. 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 Anxiety disorder unspecified. Impulse control disorder unspecified. Rest unchanged. Plan: No change from initial note. The patient seems more responsive during the day per nursing report. Assessment: Vital Signs/I&O: Vital Signs Date Time Temp Pulse Resp B/P (MAP) Pulse Ox O2 Delivery O2 Flow Rate FiO2 02/27/20 06:23 98.5 73 14 100/62 (75) 94 02/26/20 15:59 Room Air I & O 02/26/20 02/26/20 02/27/20 15:00 23:00 07:00 Intake Total 240 ml 390 ml Output Total 450 ml 500 ml Balance 240 ml -60 ml -500 ml Current Medications: I have reviewed the current psychotropics carefully including drug interactions. Risk benefit ratio favors no change other than as noted in my dictated progress note. Diagnosis: Problems: (1) Hallucinations (2) Impulse control disorder (3) Anxiety disorder (4) Psychotic disorder (5) Wernicke-Korsakoff syndrome (alcoholic) (6) Dementia, vascular, with depression (7) Dementia, vascular, with delusions (8) Major neurocognitive disorder due to Alzheimer's disease, with behavioral disturbance ELMA HURD MD Feb 27, 2020 07:41
--- NOTE | 2020-02-27 07:58 | PDOC ---
Exam Note: Jay Note: This note is a late entry for 02/26/2020 covers elements not covered in my initial note. Subjective: The patient was seen face to face in the evening of 02/26/2020. Nursing report was with Kris COFFEY. He has been calmer, confused, uncomfortable in Broda chair. He has been coming out of his room more. Review of Systems: Ambulation impaired, in Broda chair. No CV, , pulmonary, eye, ENT system symptoms on review. Mental Status Exam: Oriented to himself. Insight and judgment, recent and remote memory, attention and concentration, fund of knowledge is poor consistent with his diagnoses. Laboratory Data: Reviewed. 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 Anxiety disorder unspecified. Impulse control disorder unspecified. Rest unchanged. Plan: No change from initial note. Assessment: Vital Signs/I&O: Vital Signs Date Time Temp Pulse Resp B/P (MAP) Pulse Ox O2 Delivery O2 Flow Rate FiO2 02/27/20 06:23 98.5 73 14 100/62 (75) 94 02/26/20 15:59 Room Air I & O 02/26/20 02/26/20 02/27/20 15:00 23:00 07:00 Intake Total 240 ml 390 ml Output Total 450 ml 500 ml Balance 240 ml -60 ml -500 ml Current Medications: I have reviewed the current psychotropics carefully including drug interactions. Risk benefit ratio favors no change other than as noted in my dictated progress note. Diagnosis: Problems: (1) Hallucinations (2) Impulse control disorder (3) Anxiety disorder (4) Psychotic disorder (5) Wernicke-Korsakoff syndrome (alcoholic) (6) Dementia, vascular, with depression (7) Dementia, vascular, with delusions (8) Major neurocognitive disorder due to Alzheimer's disease, with behavioral disturbance ELMA HURD MD Feb 27, 2020 07:58
[2020-02-27] MEDS: CLOPIDOGREL BISULFATE 75 MG TABLET PO SCH (08:46)
[2020-02-27] MEDS: ASPIRIN CHEWABLE 81 MG TABLET. PO SCH (08:46)
[2020-02-27] MEDS: DIVALPROEX 125 MG CAP.SPRINK PO SCH ×2 (08:46→20:41)
[2020-02-27] MEDS: PANTOPRAZOLE 40 MG TABLET. PO SCH (08:46)
[2020-02-27] MEDS: LACTULOSE 20 GM/30 ML SOLUTION. PO SCH ×2 (08:46→20:39)
[2020-02-27] MEDS: CHOLECALCIFEROL (VITAMIN D3) 1,000 UNIT TABLET PO SCH (08:47)
[2020-02-27] MEDS: LORazepam 1 MG TABLET PO SCH ×2 (08:47→20:40)
[2020-02-27] MEDS: THIAMINE 100 MG TABLET. PO SCH (08:47)
[2020-02-27] MEDS: HALOPERIDOL 5 MG TABLET PO SCH ×3 (08:47→20:40)
[2020-02-27] MEDS: DOCUSATE SODIUM 100 MG CAPSULE PO SCH ×2 (08:47→20:41)
[2020-02-27] MEDS: NICOTINE 7MG PATCH. TD SCH (08:47)
[2020-02-27] MEDS: SENNOSIDES/DOCUSATE 8.6/50MG TABLET. PO SCH ×2 (08:47→20:40)
[2020-02-27] MEDS: LACOSAMIDE 50 MG TABLET PO SCH ×2 (08:47→20:40)
--- NOTE | 2020-02-27 09:42 | NUR ---
Patient compliant with assessment and medication. Patient willing to tell staff his minimal needs at a low tone. Patient appears to respond to Togol[place] better. Patient appears more alert this morning
[2020-02-27] MEDS: traZODone 50 MG TABLET. PO SCH ×2 (12:25→17:08)
[2020-02-27 16:02] VITALS: BP 112/66
[2020-02-27] MEDS ORDERED: DIVA125C2 PO ×2 (19:37)
[2020-02-27] MEDS ORDERED: HALO10TA PO (19:39)
[2020-02-27] MEDS ORDERED: HALO5TAB PO (19:40)
[2020-02-27] MEDS ORDERED: MAGN24003 PO (19:41)
[2020-02-27] MEDS ORDERED: MAG-95 PO (19:41)
[2020-02-27] MEDS ORDERED: METH28OI2 TP (19:45)
[2020-02-27] MEDS ORDERED: MIRT7.5T8 PO (19:45)
[2020-02-27] MEDS ORDERED: NICO1PAT27 TD (19:47)
[2020-02-27] MEDS ORDERED: OLAN5TAB5 PO (19:48)
[2020-02-27] MEDS ORDERED: HYDR25TA PO (19:49)
[2020-02-27] MEDS ORDERED: TRAZ-125 PO ×2 (19:49→19:50)
[2020-02-27] MEDS ORDERED: LACO200T PO (19:52)
[2020-02-27] MEDS ORDERED: TRAZ-120 PO (19:53)
[2020-02-27] MEDS: ATORVASTATIN CALCIUM 20 MG TABLET PO SCH (20:40)
[2020-02-27] MEDS: MIRTAZAPINE 7.5 MG TABLET. PO SCH (20:40)
[2020-02-27] MEDS: traZODone 100 MG TABLET. PO SCH (20:41)
--- NOTE | 2020-02-27 22:10 | NUR ---
Nursing note: Assumed care of pt in the hallway where he was sitting quietly in the broda. He was calm and compliant with meds. Pt was in no pain but wanted to go to bed.
[2020-02-28 06:18] VITALS: BP 101/63
--- NOTE | 2020-02-28 06:51 | PDOC ---
Exam Note: Jay Note: This note is a late entry for 02/27/2020 covers elements not covered in my initial note. Subjective: The patient was seen face to face in the evening of 02/27/2020. Nursing report was with Kris COFFEY. He slept 5-1/4 hours previous night. The patient has been a little more awake and alert, responsive and interactive. He has been sitting out in the dayroom amongst other patients. He is little more interactive. Review of Systems: Ambulation impaired, in wheelchair. No CV, , pulmonary, eye, ENT system symptoms on review. Mental Status Exam: Oriented to himself. Insight and judgment, recent and remote memory, attention and concentration, fund of knowledge is poor consistent with his diagnoses. Laboratory Data: Reviewed. 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 Anxiety disorder unspecified. Impulse control disorder unspecified. Rest unchanged. Plan: No change from initial note. No clear psychotic symptoms are noted. The patient may be having some acathisia. He is currently on Haldol 5 mg t.i.d. 9 a.m., 1400 and h.s. We will stop the 1400 Haldol 5 mg. Continue rest unchanged. Possible transition to nursing facility on 02/26. Assessment: Vital Signs/I&O: Vital Signs Date Time Temp Pulse Resp B/P (MAP) Pulse Ox O2 Delivery O2 Flow Rate FiO2 02/28/20 06:18 98.0 90 20 101/63 (76) 93 02/27/20 16:02 Room Air I & O 02/27/20 02/27/20 02/28/20 15:00 23:00 07:00 Intake Total 840 ml 480 ml Output Total 450 ml 450 ml Balance 840 ml 30 ml -450 ml Current Medications: I have reviewed the current psychotropics carefully including drug interactions. Risk benefit ratio favors no change other than as noted in my dictated progress note. 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
[2020-02-28 07:56] LABS: ALBUMIN 3.3 g/dL (3.4-5.0); ALBUMIN/GLOBULIN RATIO 0.8 (1.0-1.7); CALCIUM 9.2 mg/dL (8.5-10.1); CREATININE 0.7 mg/dL (0.7-1.3); GFR 113.9; POTASSIUM 3.7 mmol/L (3.5-5.1); TOTAL BILIRUBIN 0.5 mg/dL (0.2-1.0); TOTAL PROTEIN 7.5 g/dL (6.4-8.2)
[2020-02-28] MEDS ORDERED: HALOPERIDOL 5 MG TABLET PO SCH (08:00)
[2020-02-28] MEDS: LACOSAMIDE 50 MG TABLET PO SCH (08:25)
[2020-02-28] MEDS: LACTULOSE 20 GM/30 ML SOLUTION. PO SCH (08:25)
[2020-02-28] MEDS: CHOLECALCIFEROL (VITAMIN D3) 1,000 UNIT TABLET PO SCH (08:25)
[2020-02-28] MEDS: ASPIRIN CHEWABLE 81 MG TABLET. PO SCH (08:25)
[2020-02-28] MEDS: DIVALPROEX 125 MG CAP.SPRINK PO SCH (08:26)
[2020-02-28] MEDS: CLOPIDOGREL BISULFATE 75 MG TABLET PO SCH (08:26)
[2020-02-28] MEDS: SENNOSIDES/DOCUSATE 8.6/50MG TABLET. PO SCH (08:26)
[2020-02-28] MEDS: PANTOPRAZOLE 40 MG TABLET. PO SCH (08:27)
[2020-02-28] MEDS: NICOTINE 7MG PATCH. TD SCH (08:27)
[2020-02-28] MEDS: LORazepam 1 MG TABLET PO SCH (08:27)
[2020-02-28] MEDS: THIAMINE 100 MG TABLET. PO SCH (08:27)
[2020-02-28] MEDS: DOCUSATE SODIUM 100 MG CAPSULE PO SCH (08:27)
[2020-02-28] MEDS: MAGNESIUM OXIDE 400 MG TABLET PO SCH (08:27)
[2020-02-28 10:26] LABS: BASO % 1 % (0-3); EOS # 0.1 x10^3/uL (0.0-0.7); EOS % 3 % (0-3); HEMATOCRIT 35.2 % (39.0-53.0); HEMOGLOBIN 11.6 g/dL (13.0-17.5); LYMPH # 1.8 x10^3/uL (1.0-4.8); LYMPH % 32 % (24-48); MEAN CORPUSCULAR HEMOGLOBIN 29 pg (25-35); MEAN CORPUSCULAR HGB CONC 33 g/dL (31-37); MEAN CORPUSCULAR VOLUME 87 fL (79-100); MONO # 0.6 x10^3/uL (0.0-1.1); MONO % 11 % (0-9); NEUT % 54 % (31-73); PLATELET COUNT 128 x10^3/uL (140-400); RED BLOOD COUNT 4.06 x10^6/uL (4.30-5.70); RED CELL DISTRIBUTION WIDTH 14.9 % (11.5-14.5); WHITE BLOOD COUNT 5.6 x10^3/uL (4.0-11.0)
--- NOTE | 2020-02-28 12:43 | NUR ---
Tobacco Discharge Note [facility] Tobacco Hotline called with patient prior to discharge, YES Tobacco cessation medication listed with current medications for discharge. YES Transition Record was faxed to follow-up provider with the following elements: Reason for admission, procedures, tests, principal diagnosis, pending studies, patient instructions, 14/04 contact information for unit, phone number to obtain pending test results, plan for follow-up care, physician follow-up, advanced directive information, and medication list with dose, duration and instructions. This information was included in the following documents: History and physical, lab results, study results, progress notes, social work planning form, DC instruction form, patient visit summary, and medication reconciliation form. Date & time record faxed: 02/28/20 @0132 [facility] Record discussed with/ report given to: ERLINDA Bird
--- NOTE | 2020-02-28 22:11 | PDOC ---
Exam Note: Jay Note: Please also refer to the separate dictated note~for this date of service dictated separately.~Patient seen individually. Discussed the patient with Nursing staff reviewed the chart.~Reviewed interim history and current functioning. Reviewed vital signs,~Labs/ Radiology~and current medications noted below. Continue current treatment with the changes noted in the dictated addendum note Assessment: Vital Signs/I&O: Vital Signs Date Time Temp Pulse Resp B/P (MAP) Pulse Ox O2 Delivery O2 Flow Rate FiO2 02/28/20 06:18 98.0 90 20 101/63 (76) 93 02/27/20 16:02 Room Air I & O 02/27/20 02/27/20 02/28/20 15:00 23:00 07:00 Intake Total 840 ml 480 ml Output Total 450 ml 450 ml Balance 840 ml 30 ml -450 ml Labs: Laboratory Tests Test 02/28/20 06:57 White Blood Count 5.6 x10^3/uL (4.0-11.0) Red Blood Count 4.06 x10^6/uL (4.30-5.70) L Hemoglobin 11.6 g/dL (13.0-17.5) L Hematocrit 35.2 % (39.0-53.0) L Mean Corpuscular Volume 87 fL (79-100) Mean Corpuscular Hemoglobin 29 pg (25-35) Mean Corpuscular Hemoglobin Concent 33 g/dL (31-37) Red Cell Distribution Width 14.9 % (11.5-14.5) H Platelet Count 128 x10^3/uL (140-400) L Neutrophils (%) (Auto) 54 % (31-73) Lymphocytes (%) (Auto) 32 % (24-48) Monocytes (%) (Auto) 11 % (0-9) H Eosinophils (%) (Auto) 3 % (0-3) Basophils (%) (Auto) 1 % (0-3) Neutrophils # (Auto) 3.0 x10^3uL (1.8-7.7) Lymphocytes # (Auto) 1.8 x10^3/uL (1.0-4.8) Monocytes # (Auto) 0.6 x10^3/uL (0.0-1.1) Eosinophils # (Auto) 0.1 x10^3/uL (0.0-0.7) Basophils # (Auto) 0.0 x10^3/uL (0.0-0.2) Sodium Level 139 mmol/L (136-145) Potassium Level 3.7 mmol/L (3.5-5.1) Chloride Level 103 mmol/L (98-107) Carbon Dioxide Level 26 mmol/L (21-32) Anion Gap 10 (6-14) Blood Urea Nitrogen 24 mg/dL (8-26) Creatinine 0.7 mg/dL (0.7-1.3) Estimated GFR (Cockcroft-Gault) 113.9 BUN/Creatinine Ratio 34 (6-20) H Glucose Level 106 mg/dL (70-99) H Calcium Level 9.2 mg/dL (8.5-10.1) Total Bilirubin 0.5 mg/dL (0.2-1.0) Aspartate Amino Transferase (AST) 26 U/L (15-37) Alanine Aminotransferase (ALT) 18 U/L (16-63) Alkaline Phosphatase 89 U/L (46-116) Total Protein 7.5 g/dL (6.4-8.2) Albumin 3.3 g/dL (3.4-5.0) L Albumin/Globulin Ratio 0.8 (1.0-1.7) L Current Medications: Meds: Current Medications Medications (Trade) Dose Ordered Sig/Yeny Route PRN Reason Start Time Stop Time Status Last Admin Dose Admin Haloperidol (Haldol) 5 mg DAILY08 PO 02/28/20 08:00 02/28/20 12:55 DC 02/28/20 08:26 I have reviewed the current psychotropics carefully including drug interactions. Risk benefit ratio favors no change other than as noted in my dictated progress note. Diagnosis: Problems: (1) Hallucinations (2) Impulse control disorder (3) Anxiety disorder (4) Psychotic disorder (5) Wernicke-Korsakoff syndrome (alcoholic) (6) Dementia, vascular, with depression (7) Dementia, vascular, with delusions (8) Major neurocognitive disorder due to Alzheimer's disease, with behavioral disturbance ELMA HURD MD Feb 28, 2020 22:11
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
== END 2020-02-28 12:30 | DRG 57 ==
LOC: ER 10:36 → GEROPSY 13:25
PROVIDERS: ADMIT Psychiatry & Neurology Psychiatry; ATTEND Psychiatry & Neurology Psychiatry
DX: G30.9 Alzheimer's disease, unspecified (principal); E51.2 Wernicke's encephalopathy; F02.81 Dementia in other diseases classified elsewhere, unspecified severity, with behavioral disturbance; I69.354 Hemiplegia and hemiparesis following cerebral infarction affecting left non-dominant side; F10.26 Alcohol dependence with alcohol-induced persisting amnestic disorder; F01.50 Vascular dementia, unspecified severity, without behavioral disturbance, psychotic disturbance, mood disturbance, and anxiety; E78.5 Hyperlipidemia, unspecified; F19.10 Other psychoactive substance abuse, uncomplicated; F32.9 Major depressive disorder, single episode, unspecified; F41.9 Anxiety disorder, unspecified; F63.9 Impulse disorder, unspecified; K21.9 Gastro-esophageal reflux disease without esophagitis; G40.909 Epilepsy, unspecified, not intractable, without status epilepticus; G47.00 Insomnia, unspecified; I69.391 Dysphagia following cerebral infarction; J43.9 Emphysema, unspecified; R29.6 Repeated falls; Z79.899 Other long term (current) drug therapy; Z91.81 History of falling
CPT/HCPCS: 36415; 70450; 71045; 80048; 80053; 80061; 80164; 80307; 80329; 81001; 82140; 82306; 82607; 82803; 82947; 83036; 83540; 83550; 83735; 84436; 84443; 84480; 85025; 86592; 93005; 99406; G0480; 92610; 99285-25; J7030